=== PATIENT | male | born 1950 | race Caucasian/White ===

== ENCOUNTER 2016-07-23 12:00 | Observation (INO) | payer MEDICARE, OTHER ==
[~2016-07-23] VITALS: Ht 175.3 cm; Wt 138.2 kg
--- NOTE | ~2016-07-23 | ER ---
PATIENT'S NAME: IZAIAH MUÑOZ [facility] AGE: 66 Y [address] ROOM: [id number] [place], [place] [address] LOCATION: [facility] [place] ADMIT DATE: 07/23/2016 ER/Outpatient Report DISCHARGE DATE: FAMILY PHYSICIAN: PHYSICIAN, UNKNOWN ATTENDING PHYSICIAN: BRITTANI NOVOA Time of Patient Arrival: 1200 hours. Time of Patient Evaluation: 1210 hours. CHIEF COMPLAINT: Redness around a fistula site. HISTORY OF PRESENT ILLNESS: This is a 66-year-old male who presents to the ER, who is an end-stage renal disease patient who does dialysis here in town on Monday, , and Saturdays. The patient states he went to take off his jacket at dialysis today and noticed some redness over his fistula site. Dr. Crews did take a look at the patient and did state that he does not want his fistula site to be accessed and wanted him to come over to the hospital to get a new access placed, so that he can receive dialysis today. He has not been running any fevers. He denies any vomiting or diarrhea. He states he has no pain to the arm. The patient states that he has no other problems at this time. ALLERGIES: NO KNOWN ALLERGIES. MEDICATIONS: Please see medication list in nurse's notes. PAST MEDICAL HISTORY: 1. Recent right arm fracture due to fall 3 weeks ago. 2. End-stage renal disease, is on dialysis. 3. Anemia of chronic kidney disease. 4. Hypertension. 5. Diabetes. 6. Obstructive sleep apnea. 7. Morbid obesity. 8. Hypothyroidism. 9. Acid reflux. 10. Chronic constipation. 11. Factor V Leiden deficiency. SOCIAL HISTORY: Denies smoking, drug, or alcohol use. PATIENT'S NAME: IZAIAH MUÑOZ [facility] AGE: 66 Y [address] ROOM: [address] [place], [place] [address] LOCATION: [facility] [place] ADMIT DATE: 07/23/2016 ER/Outpatient Report DISCHARGE DATE: FAMILY PHYSICIAN: PHYSICIAN, UNKNOWN ATTENDING PHYSICIAN: BRITTANI NOVOA REVIEW OF SYSTEMS: A 10-point review of systems was completed and was negative with the exception of those discussed in the HPI. PHYSICAL EXAMINATION: VITAL SIGNS: Weight 143 kg, blood pressure is 130/61, pulse 56, respirations 18, temperature 98.2 degrees tympanically, saturations 93% on room air. Dilshad Coma Score is 15. GENERAL: Alert, calm, obese male, in no acute distress. HEENT. Head: Normocephalic. He does display moist mucous membranes. Eyes: Pupils are equal and reactive to light. LUNGS: Clear to auscultation bilaterally. No wheeze or crackles. Normal respiratory effort. HEART: Regular rate and rhythm. No lifts, thrills, or murmurs. ABDOMEN: Soft, is obese, it is nontender. He has good bowel sounds throughout. EXTREMITIES: No clubbing or cyanosis. He has full range of motion of all limbs. SKIN: He has a dime-sized to nickel-sized erythema noted over the left fistula site. It is slightly swollen, there could possibly be appearance of an early pustule there. He has a red streak measuring approximately an inch to an inch and half in length over the forearm as well. There is no induration. There is no tenderness with palpation. LABORATORY DATA: CBC: White count 7.2, hemoglobin 9.1, and platelets 263. Chemistry: Sodium 135, potassium 4.4, glucose 112, calcium 8.0, BUN 43, and creatinine 6.5. Alkaline phosphatase 169, and estimated GFR is 9. Clot PTT was also drawn. IMPRESSION: 1. Possible infection to fistula, left forearm. 2. End-stage renal disease. ASSESSMENT AND PLAN: I discussed the patient's care with Dr. Malik. We did draw 2 sets of blood cultures as well. Dr. Crews also called about the patient and I admitted the patient to the Hospitalist Service since his primary care physician is in [place], so Dr. Novoa will admit. Dr. Geller will also consult on the patient's care. The patient understands and agrees with care. NOA NORMAN PA-C FOR GENA MALIK MD PATIENT'S NAME: IZAIAH MUÑOZ [facility] AGE: 66 Y [address] ROOM: [place] [address] LOCATION: [facility] [place] ADMIT DATE: 07/23/2016 ER/Outpatient Report DISCHARGE DATE: FAMILY PHYSICIAN: PHYSICIAN, UNKNOWN ATTENDING PHYSICIAN: BRITTANI NOVOA /[id number] d: 07/23/168 t: 08/01/16 173, OUTPATIENT REPORT
--- NOTE | ~2016-07-23 | CON ---
PATIENT'S NAME: IZAIAH MUÑOZ [facility] AGE: 66 Y [address] ROOM: [place] [address] LOCATION: [facility] [place] ADMIT DATE: 07/23/2016 Consultation DISCHARGE DATE: 07/26/2016 FAMILY PHYSICIAN: PHYSICIAN, UNKNOWN ATTENDING PHYSICIAN: BRITTANI OSEI DATE OF CONSULTATION: 07/25/2016 REASON FOR CONSULT: Cellulitis and abscess over left arteriovenous fistula. HISTORY OF PRESENTING ILLNESS: This is a 66-year-old male, admitted to [facility] for cellulitis and abscess collection over his left arm fistula. The patient noticed redness, swelling, and pus around his fistula access site after a difficult stick on during dialysis. The patient had an increase in pustule size from to Monday morning. At the Monday morning dialysis session, he was assessed by other staff and deferred to the emergency room after this pustule was seen. The patient denies any current signs of sepsis systemically such as fever or chills. The patient was admitted for potential rupture or bleed, also admitted for IV antibiotics and placement of temporary dialysis catheter. The patient denies any chest pain, shortness of breath, abdominal pain, nausea, vomiting, or diarrhea. He denies any headache or dizziness. PAST MEDICAL HISTORY: 1. Hypertension. 2. 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 3. Obstructive sleep apnea. 4. Morbid obesity. 5. Hypothyroidism. 6. GERD. 7. Chronic constipation. 8. Factor V Leiden mutation, not on anticoagulation. 9. Arthritis. 10. Hypercholesterolemia. PAST SURGICAL HISTORY: 1. Left arm radiocephalic fistula. 2. Hernia repair. 3. Right nasal endoscopy with excision of right nasal lesion. 4. Peritoneal dialysis catheter placed and removed. 5. Bilateral carpal tunnel release. 6. Bilateral knee arthroscopy. PATIENT'S NAME: IZAIAH MUÑOZ [facility] AGE: 66 Y [address] ROOM: [place] [address] LOCATION: [facility] [place] ADMIT DATE: 07/23/2016 Consultation DISCHARGE DATE: 07/26/2016 FAMILY PHYSICIAN: PHYSICIAN, UNKNOWN ATTENDING PHYSICIAN: BRITTANI OSEI 7. Tonsillectomy. 8. Stab phlebectomy bilaterally. FAMILY HISTORY: Father with coronary artery disease and hypertension. Mother, brother, and sister with diabetes mellitus. 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 He denies any history of smoking, alcohol, or illicit drug use. CURRENT MEDICATIONS: See medication record. ALLERGIES: NO KNOWN ALLERGIES. REVIEW OF SYSTEMS: A 10-point review of systems completed, positives addressed in the history of presenting illness. PHYSICAL EXAMINATION: VITAL SIGNS: Temperature 97.5, heart rate 71, respiratory rate 16, blood pressure 133/63, and oxygen saturations 92%. GENERAL: The patient is obese, in no acute distress, alert and oriented x3. SKIN: Warm and pink. HEENT: Head: Normocephalic and atraumatic. Ears: Without drainage. Eyes: Sclerae white. Conjunctivae pink. Extraocular movements intact. PERRLA. Nose: Without drainage. Throat: Oral mucosa pink and moist. No exudate or erythema. NECK: Without adenopathy. No evidence of JVD. Trachea midline. There is a temporary dialysis catheter in place. RESPIRATORY: Clear to auscultation bilaterally. Even and nonlabored. CARDIOVASCULAR: Regular rate and rhythm. No murmur or extra sounds. GASTROINTESTINAL: Bowel sounds active x4. Soft. Nontender. No organomegaly. EXTREMITIES: Left arm radiocephalic fistula with bruit and thrill. Now dried bloody drainage and pink wound bed where pustule was located. Wound appears superficial with no purulent drainage. No surrounding erythema or edema at this time. No communication of vein with lesion on palpation. Femoral, radial, dorsalis pedis, and posterior tibialis pulses 2+. No cyanosis. No edema. Active range of motion throughout. No ulcerations. Extremities warm to touch. NEUROLOGIC: No focal deficits. Strength equal bilaterally 5/5. PATIENT'S NAME: IZAIAH MUÑOZ [facility] AGE: 66 Y [address] ROOM: [id number] [place] [id number] LOCATION: [facility] [place] ADMIT DATE: 07/23/2016 Consultation DISCHARGE DATE: 07/26/2016 FAMILY PHYSICIAN: PHYSICIAN, UNKNOWN ATTENDING PHYSICIAN: BRITTANI OSEI LABORATORY DATA: Hematology: White blood cell count 5.8, hemoglobin 9.3, hematocrit 30.6, and platelets 184. Chemistry: Sodium 134, potassium 4.1, chloride 98, CO2 of 23, BUN 40, creatinine 6.3, and glucose 94. IMPRESSION: 1. End-stage renal disease, on hemodialysis. 2. Diabetes mellitus type 2. 3. Anemia of chronic disease. 4. Cellulitis of left upper extremity with abscess. PLAN: Cutaneous infection appears superficial without communication with the fistula. Appears to have improved in appearance in comparison to description on history and physical since IV antibiotic initiation. No surgical intervention needed at this time. Dr. Singh recommends resting the fistula for 3 weeks and obtaining a tunneled line for hemodialysis until fistula is fully healed. Continue the patient with antibiotics for 1 week. The patient is currently on IV doxycycline and maybe transition to p.o. prior to discharge. The patient is to follow up with Dr. Singh in clinic in 3 weeks to determine if the fistula may be used for dialysis again at that time. Continue to monitor for any increase in drainage or bleeding. Please contact Vascular Surgery with any further concerns or complications. Thank you for your consultation and for allowing us to participate in the care of this patient. GINNY CORADO APRN FOR BENIGNO SINGH MD TO/gueral /[id number] d: 07/26/16 1805 t: 07/29/16 1010, CONSULTATION REPORT
--- NOTE | ~2016-07-23 | HP ---
PATIENT'S NAME: IZAIAH MUÑOZ [facility] AGE: 66 Y [address] ROOM: [place] [address] [place] [facility] [place] [facility] [place] DATE: 07/23/2016 History & Physical DISCHARGE DATE: FAMILY PHYSICIAN: PHYSICIAN, UNKNOWN ATTENDING PHYSICIAN: BRITTANI OSEI DATE OF SERVICE: CHIEF COMPLAINT: Left upper extremity cellulitis with abscess, loss of hemodialysis access site. HISTORY OF PRESENT ILLNESS: This is a 66-year-old male, history of hypertension, diabetes, end-stage renal disease, on hemodialysis on Monday, , and Monday, who presents with cellulitis and abscess collection over his left fistula site that is used for dialysis. The patient states that he started noticing the redness, swelling with central pus collection around his fistula access site on the left arm, used for dialysis. The patient first noticed symptom yesterday evening, which progressed then. The patient has had successful hemodialysis last without issues. 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 The patient upon my evaluation states that he has minimal pain in the area but denies any systemic signs of infection including fever or chills. Denies any chest pain, shortness of breath, nausea, vomiting, diarrhea, or constipation. No headache, dizziness, or lightheadedness reported as well. The patient is not known to have recurrent soft tissue infections. He is a diabetic; however, diabetes is very well controlled. PAST MEDICAL HISTORY: Type 2 diabetes, hypertension, end-stage renal disease, on hemodialysis. FAMILY HISTORY: The patient has a family history of hypertension in the parents. SOCIAL HISTORY: The patient denies smoking, daily alcohol use, or drug use. REVIEW OF SYSTEMS: A 10-point review of systems was conducted and were all negative except as described in the HPI. PHYSICAL EXAMINATION: VITAL SIGNS: Blood pressure 138/61, pulse 51, respiratory rate 16, PATIENT'S NAME: IZAIAH MUÑOZ [facility] AGE: 66 Y [address] ROOM: [place] [address] [place] [facility] [place]: 07/23/2016 History & Physical DISCHARGE DATE: FAMILY PHYSICIAN: PHYSICIAN, UNKNOWN ATTENDING PHYSICIAN: BRITTANI OSEI temperature 98, saturating 100% on room air. ASSESSMENT AND PLAN: 1. Cellulitis of left upper extremity with abscess. This is the site of dialysis access with AV fistula. We will treat cellulitis with IV doxycycline and then switch to p.o. upon discharge to finish a minimum of 7-day course. The patient is not to use the fistula until infection at the site, erythema and swelling have subsided. Does not appear to be there is enough collection to require incision and drainage, and attempting that would complicate the access area as well. Nephrology, Dr. Crews, is following closely. 2. Failure of hemodialysis access site. The patient is to get temporary vascular access and Dr. Geller is to do that today so that he can have his scheduled dialysis, at his next visit. We will watch out for any signs of leak or bleed from the fistula site closely. 3. Type 2 diabetes, well controlled. The patient is on oral hypoglycemics at home. We will use sliding scale insulin while he is inpatient. 4. End-stage renal disease, on hemodialysis, to get temporary vascular access. I will schedule Monday, , and Monday. Dr. Crews from Nephrology is following. 5. Deep venous thrombosis prophylaxis. We will use subcutaneous heparin. BRITTANI OSEI MD BG/modl /[id number] D: [id number] T: [id number] HISTORY & PHYSICAL
--- NOTE | ~2016-07-23 | CON ---
PATIENT'S NAME: IZAIAH MUÑOZ [facility] AGE: 66 Y [address] ROOM: [address] [place], [place] [address] [place]: [facility] [place] ADMIT DATE: 07/23/2016 Consultation DISCHARGE DATE: FAMILY PHYSICIAN: PHYSICIAN, UNKNOWN ATTENDING PHYSICIAN: BRITTANI OSEI DATE OF CONSULTATION: 07/23/2016 CONSULTATION NOTE REASON FOR CONSULTATION: End-stage renal disease for management of dialysis. HISTORY OF PRESENT ILLNESS: A 66-year-old male patient with history of ESRD from diabetic nephropathy, currently undergoes dialysis in our outpatient dialysis unit at [facility] as per TTS schedule, developed a pustule over his the left forearm AV fistula. The patient was subsequently admitted to the hospital for further management and care, and Nephrology has been consulted for management of dialysis. He was in his usual state of health until , when he had a difficult stick at that time when he went for his dialysis therapy. After that when he removed his bandage over his fistula after his dialysis, he saw a small pus point overlying the fistula at the needle insertion site which slowly went bigger and in the morning, it shows significant pus accumulation around that area. However, there is no drainage at this point. No complaint of any blood leak or any significant bleeding from that area. He went to our dialysis unit today in the morning as per his TTS schedule, but seeing this pustule we deferred the dialysis for now and send the patient to the ER. The patient got initially evaluated here, does not have any systemic signs of sepsis, but has a pustule over the AVF which has a very high potential to bleed and rupture. Considering that in mind, the patient has been admitted in the [facility] for IV antibiotics along with plan for placement of a temporary dialysis catheter. The patient is currently at least 7 L off from his dry weight, but denied any shortness of breath, chest pain, or orthopnea, or PND. REVIEW OF SYSTEMS: GENERAL: No fever. No chills or rigor. HEENT: No sore throat. No sinus congestion. CVS: No chest pain. No exertional shortness of breath. No leg swelling. RESPIRATORY: No shortness of breath. No cough. No wheezing. GENITOURINARY: No pain with urination. No increased frequency. No nocturia. GASTROINTESTINAL: No abdominal pain. No abdominal distention. No nausea or vomiting. NEUROLOGIC: No weakness. No seizures. SKIN: No rash. No itching. ALLERGIES: No seasonal allergy. No hayfever. ENDOCRINE: No heat intolerance. No cold intolerance. PSYCHIATRIC: No sadness. No crying spells. No history of panic attack. PATIENT'S NAME: IZAIAH MUÑOZ [facility] AGE: 66 Y [address] ROOM: [place] [address] LOCATION: [facility] [place] ADMIT DATE: 07/23/2016 Consultation DISCHARGE DATE: FAMILY PHYSICIAN: PHYSICIAN, UNKNOWN ATTENDING PHYSICIAN: BRITTANI OSEI PAST MEDICAL HISTORY: 1. Hypertension. 2. Diabetes. 3. End-stage renal disease secondary to diabetic nephropathy, now on in- center hemodialysis, TTS schedule. 4. Obstructive sleep apnea. 5. Morbid obesity. 6. Hypothyroidism. 7. GERD. 8. Chronic constipation. 9. Factor V Leiden mutation, not on anticoagulation. PAST SURGICAL HISTORY: 1. Left fistula placement. 2. Hernia repair. 3. Right nasal endoscopy with excision of right nasal lesion. 4. Left forearm primary radiocephalic AV fistula placement. 5. Peritoneal dialysis catheter placement and removal. 6. Bilateral carpal tunnel release. 7. Knee arthroscopy. ALLERGIES: NO KNOWN DRUG ALLERGIES. MEDICATIONS: As per MAR. SOCIAL HISTORY: Lives at home. 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 No history of significant smoking or alcohol abuse in the past. FAMILY HISTORY: History of hypertension and diabetes, but no history of kidney disease in the family. PHYSICAL EXAMINATION: VITAL SIGNS: Blood pressure 150/68, respiratory rate 22, heart rate 76, and saturation 96 to 98% on room air. Currently afebrile. GENERAL: Not in apparent distress. HEAD: Moist mucous membranes. Bilateral PERRLA, EOMI. NECK: No JVD, thyromegaly or lymphadenopathy. CVS: S1 and S2 normal, regular rate and rhythm. No murmur, rub, gallop. CHEST: Bilateral air entry equal. No wheeze or rales. ABDOMEN: Soft, nontender, nondistended. Bowel sounds present. EXTREMITIES: Left forearm AV fistula, has a small pustule over the needle insertion site over left AVF. No cyanosis, clubbing, or jaundice. No significant dependent edema. MUSCULOSKELETAL: No limitation of range of motion. SKIN: No pallor, cyanosis, icterus. 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 No gross findings. PATIENT'S NAME: IZAIAH MUÑOZ [facility] AGE: 66 Y [address] ROOM: [address] [address] LOCATION: [facility] [place] ADMIT DATE: 07/23/2016 Consultation DISCHARGE DATE: FAMILY PHYSICIAN: PHYSICIAN, UNKNOWN ATTENDING PHYSICIAN: BRITTANI OSEI LABORATORY STUDIES: Hemoglobin 9.1, WBC 7.2, and platelets 263,000. Sodium 135, potassium 4.4, chloride 97, bicarbonate 25, BUN 43, creatinine 6.5, glucose 112, calcium 8, total protein 7.4, and albumin 2.6. INR 1.1. PTT 32. ASSESSMENT AND PLAN: 1. Pustules over the left forearm arteriovenous fistula, although no sign of sepsis, but has high potential of rupture. The patient will need IV antibiotic therapy. I spoke with Dr. Singh (vascular surgeon)personally. We will try to monitor over the weekend with IV antibiotics and plan to do imaging or procedure as per Dr. Singh's advise after he evaluates him on Monday. For now, we will not use the AVF and we will cover it with a sterile bandage. Patient has been instructed to watch for any sign of bleeding and if patient has any blood leak or any sign of impending rupture, the patient needs to be transferred out to some tertiary care center where there is Vascular Surgery coverage even over the weekend. 2. End-stage renal disease, on chronic hemodialysis, TTS schedule. The last dialysis was on Monday. The patient currently is almost several liters off from his dry weight, although not significantly short of breath. The patient's biochemical parameters are also within normal limits, but he may will not float until Monday or Monday until we get the access issue resolved; so we planned for a temporary dialysis catheter placement by Dr. Geller. Once that line is placed, we will dialyze him on a 2 K bath for 4 hours and we will plan to remove about 4 to 5 L of ultrafiltrate as per the hemodynamic response. 3. Anemia of chronic disease; does receive Mircera as an outpatient. Next dose of Mircera planned for next week. We will continue to monitor the hemoglobin and hematocrit. 4. Diabetes mellitus. Defer management as per primary team. 5. Secondary hyperparathyroidism and hyperphosphatemia. Currently on binders. We will continue the binders as per outpatient protocol. Thank you for allowing me to participate in this patient's care. We will closely monitor the patient's progress along with you. ABHISEKH HUGO CASTILLO MD /modl /[id number] d: 07/23/160 t: 07/24/16 1215, CONSULTATION REPORT
--- NOTE | ~2016-07-23 | OR ---
PATIENT'S NAME: IZAIAH MUÑOZ [facility] AGE: 66 Y [address] ROOM: [place] [address] [place] [facility] [place]: 07/23/2016 OR/Procedure Report DISCHARGE DATE: FAMILY PHYSICIAN: PHYSICIAN, UNKNOWN ATTENDING PHYSICIAN: BRITTANI OSEI SURGEON: Tay Houston DO PRECISION ASSEMBLY INSPECTOR: DATE OF PROCEDURE: 07/23/2016 PREOPERATIVE DIAGNOSIS: Acute renal failure with fistula compromise, need for temporary hemodialysis access. POSTOPERATIVE DIAGNOSIS: Acute renal failure with fistula compromise, need for temporary hemodialysis access. PROCEDURE: Insertion of left internal jugular vein temporary dialysis catheter. BRIEF HISTORY: Mr. Muñoz is a 66-year-old white male who has had some difficulties with his fistula and possible fistula infection. We have been asked to place a dialysis line in for temporary access. The right internal jugular vein has been accessed multiple times with previous dialysis catheter site, I could not visualize a clean vein on ultrasound. I attempted the right subclavian area, the vein was accessed, however, the guidewire would not feed without resistance. So, we turned our attention to the left internal jugular vein. We identified a nice vein and sterilely prepped and draped the area. 1% lidocaine was used to infiltrate deeper tissues and the vein was accessed without difficulty. The guidewire fed without resistance. A stab incision was made at the base of the needle and the needle was withdrawn. Soft tissue dilators were placed over the guidewire and withdrawn and then the triple- lumen temporary dialysis catheter was placed over the guidewire, and the guidewire was withdrawn. Each lumen aspirated easily for dark venous blood, was then flushed with sterile saline. The 2 dialysis lumens were then locked with heparin. It was secured in position with a 2-0 nylon. A sterile dressing was applied. The patient tolerated the procedure well. A chest x- ray is pending for placement. TAY HOUSTON DO MCB/modl PATIENT'S NAME: IZAIAH MUÑOZ [facility] AGE: 66 Y [address] ROOM: [place] [address] [place] [facility] [place]: 07/23/2016 OR/Procedure Report DISCHARGE DATE: FAMILY PHYSICIAN: , [place] ATTENDING PHYSICIAN: BRITTANI OSEI /[id number] d: 07/25/16 1909 t: 07/26/16 0823, OPERATIVE SUMMARY
--- NOTE | ~2016-07-23 | DS ---
PATIENT'S NAME: IZAIAH MUÑOZ [facility] AGE: 66 Y [address] ROOM: [address] [place], [place] [address] LOCATION: [facility] ADMIT DATE: 07/23/2016 Discharge Summary DISCHARGE DATE: 07/26/2016 FAMILY PHYSICIAN: Physician, Unknown ATTENDING PHYSICIAN: Shauna Novoa FINAL DIAGNOSES: 1. Left fistula cellulitis. 2. End-stage renal disease. 3. Obstructive sleep apnea, on CPAP. 4. Diabetes mellitus, type 2, noninsulin using. 5. Essential hypertension. HISTORY OF PRESENT ILLNESS: Please see the history and physical dictated by Dr. Novoa for details of admission. LABORATORY DATA: On admission, sodium 139, discharge 130, potassium on admission was 4.1, discharge 4.9, BUN on admission was 43, most prior to discharge 56, creatinine on admission was 6.5, most prior to discharge 7.8, alk phos was 169, AST 19, and ALT 14. On admission, white blood cell count 7.2, hemoglobin 9.1, hematocrit 30.5, platelet count 261, 10% bands, at discharge white blood cell count 5.5, hemoglobin 9.1, hematocrit 29.2, and platelet count 173. MICROBIOLOGY DATA: Blood culture was negative. Chest x-ray on admission after line placement did not show any evidence of any pneumothorax. HOSPITAL COURSE: The patient was admitted after presenting with a possible infection site of his left fistula. Because of his longstanding history and frequent contact in the medical community, it was concerned that he had MRSA. He was started on IV doxycycline. Nephrology did see him. A temporary dialysis catheter was placed by Dr. Geller for him to continue to receive his dialysis. The Vascular Surgeon was asked to evaluate this to see if he felt that the area would need to be debrided. He was continued on the IV antibiotics and he improved tremendously. The decision was made that we should probably not use the fistula for 2-3 weeks. Arrangements were made for the patient to get a tunneled dialysis catheter placed on July 26. The dialysis catheter was placed without any difficulty and the patient was felt to be stable for discharge and he is discharged to home. He is discharged on a diabetic diet. He will follow up with his dialysis on Monday, , and Monday. He will see Dr. Singh in clinic in 3 weeks. MEDICATIONS: His medications will include: 1. Allopurinol 100 mg twice daily. 2. Sensipar 30 mg in the evening. PATIENT'S NAME: IZAIAH MUÑOZ [facility] AGE: 66 Y [address] ROOM: [address] [place], [place] [address] LOCATION: [facility] ADMIT DATE: 07/23/2016 Discharge Summary DISCHARGE DATE: 07/26/2016 FAMILY PHYSICIAN: Physician, Unknown ATTENDING PHYSICIAN: Shauna Novoa 3. Tenormin 50 mg twice daily. 4. Lipitor 40 mg daily. 5. Calcitriol 1.5 mcg 3 pills taken with dialysis. 6. PhosLo 667 mg twice daily and 1334 three times daily with meals. 7. Sensipar 90 mg in the evening. 8. Neurontin 300 mg at bedtime. 9. Lopid 600 mg twice daily. 10. Synthroid a total of 350 mcg daily. 11. Melatonin 10 mg at bedtime. 12. Renvela 800 mg twice daily as needed. 13. Renvela 1300 mg 3 times daily with meals. 14. Zantac 75 mg twice daily. 15. Actos 30 mg daily. 16. Vitamin B 1 tablet daily. 17. [place] 10/325 one four times daily as needed for moderate pain. 18. MiraLAX 17 g daily. 19. Doxycycline 100 mg twice daily for 7 days. 20. Percocet 5/325 one every 4 hours as needed for mild pain related to his tunnel dialysis catheter and 20 pills were given. PROGNOSIS: Overall, prognosis at discharge was good. DANDY CAREY MD LAW/modl /[id number] CC: MD Gildardo Cavazos MD d: 07/27/16 0420 t: 08/10/16 1642, DISCHARGE SUMMARY
--- NOTE | ~2016-07-23 | HP ---
PATIENT'S NAME: IZAIAH MUÑOZ [facility] AGE: 66 Y [address] ROOM: [place] [address] LOCATION: [facility] [place] ADMIT DATE: 07/23/2016 History & Physical DISCHARGE DATE: FAMILY PHYSICIAN: PHYSICIAN, UNKNOWN ATTENDING PHYSICIAN: BRITTANI OSEI DATE OF SERVICE: ADDENDUM: PHYSICAL EXAMINATION: GENERAL: The patient is awake, alert, and oriented x3, in no acute distress. HEENT: Moist mucous membranes. No scleral icterus or conjunctival pallor noted. SKIN: Red, indurated, abscess measuring about 2 cm in diameter in the left upper extremity on the anterior aspect of his elbow over his AV fistula access site. HEART: S1 and S2. Regular rate and rhythm. LUNGS: Clear to auscultation bilaterally. ABDOMEN: Soft, nontender, nondistended. Positive bowel sounds. MUSCULOSKELETAL: No joint pain or tenderness noted. No muscular pain noted as well. NEUROLOGIC: Grossly nonfocal. MD HAILEE JEAN-BAPTISTE/yolanda /[id number] D: [id number] T: [id number] HISTORY & PHYSICAL
[~2016-07-23 12:00] MED LIST changes: -B COMPLEX1 EACH PO; -CORDARONE,PACE200 MG PO; -DOXYCYCLINE100 MG PO; -ELIQUIS2.5 MG PO; -HUMIBID LA (MU600 MG PO; -JANUVIA25 MG PO; -LANOXIN (DIGI125 MCG PO; -LEVAQUIN 250 M250 MG PO; -LEXAPRO20 MG PO; -LOPRESSOR25 MG PO; -MIDODRINE HCL5 MG PO; -MILK OF MA400 MG/5 M PO; -MIRALAX PO527 GM/BOT PO; -MYCOSTATIN OINT30 GM TOP; -NEURONTIN100 MG PO; -REMERON15 MG PO
[2016-07-23 13:03] LABS: INR - (THERAPEUTIC) 1.1 (0.9-1.1); PROTIME 12.1 SECONDS (9.6-11.1)
[2016-07-23 13:18] LABS: HEMATOCRIT 30.5 % (37.0-53.0); HEMOGLOBIN 9.1 g/dL (11.0-16.0); MCH 31.2 pg (27.0-34.0); MCHC 29.8 gm/dL (32.0-36.5); MCV 104.5 fl (83.0-98.0); MPV 9.3 fl (9.4-12.4); PLATELET COUNT 263 K/uL (150-450); RBC 2.92 M/uL (3.50-5.50); WBC 7.2 K/uL (4.0-11.0)
[2016-07-23 13:19] LABS: RDW-CV 18.8 % (11.9-14.6)
[2016-07-23 13:34] LABS: ALBUMIN 2.6 gm/dL (3.5-5.0); ANION GAP 17.4 (10.0-19.0); POTASSIUM 4.4 mMol/L (3.7-5.1); TOTAL PROTEIN 7.4 g/dL (6.0-8.4)
[2016-07-23 13:35] LABS: CREATININE 6.5 mg/dL (0.6-1.3); TOTAL BILIRUBIN 0.4 mg/dL (0.0-1.5)
[2016-07-23 13:54] LABS: ABSOLUTE NEUTROPHIL CT (ANC) 4.9 K/uL (1.4-9.0); BANDED NEUTROPHIL # 0.7 K/uL (0.0-0.1); BANDED NEUTROPHILS % 10 %; LYMPHOCYTE # 1.7 K/uL (0.8-4.0); LYMPHOCYTE % 23 %; MONOCYTE # 0.3 K/uL (0.0-1.0); SEGMENTED NEUTROPHIL # 4.2 K/uL (1.4-9.0); SEGMENTED NEUTROPHIL % 58 %
[2016-07-23] MEDS ORDERED: MIRALAX PO527 GM/BOT PO (16:30)
--- NOTE | 2016-07-23 18:37 | NUR ---
Admission note: Patient came up from the ER, after being at [facility]. He has an AV fistula in the left forearm with a small dime size red area to the top of incision. This did bleed a small amount, but none since the removal of the bandage. He has a history of Hypertension, Diabetes, Hypercholestrolemia, Sleep apnea (with use of CPAP), End-stage Renal failure with receiving dialysis and has a Right Shoulder Fracture-uses arm sling. Use nilay-walker and one-assist for ambulation. Refused pneumatics. Is up to date on immunizations. Has a open sore on right buttocks. Encouraged frequent repositioning. Dr Geller placed temporary dialysis cath in left neck. Pt then went to dialysis. Patient is alert and oriented. VSS. On room air. IV to right upper arm, saline locked. Cooperative with cares.
--- NOTE | 2016-07-24 05:11 | NUR ---
Significant Event: Patient was in dialysis until almost 2200. He ate 100% of his dinner meal. Accucheck was 120 with no S/S given. Rested quietly throughout the night until around 0330 when he awoke and requested a percocet for shoulder pain. Order received and then given at 0415. Has 2 open areas on his buttock, aloe applied. Follow up:Continue to monitor.
--- NOTE | 2016-07-24 16:12 | NUR ---
Significant event: Patient is alert and oriented x3. VSS. On room air. IV to right upper arm, saline locked. Temp dialysis cath in left neck. Fistula to left forearm, covered loosely with gauze and coban, no drainage noted. No complaints of pain. Up in chair. at bedside. BM today, dribble of urine with it. Uses nilay-walker and stand by assist. Needs encouragement for repositioning.
--- NOTE | 2016-07-25 05:45 | NUR ---
Significant Event: Significant Event: Uneventful night, Perocoet given about every 4 hours for right shoulder pain. Up and voided a small amount during the night. 1-2 assist at times. Pleasant and cooperative with cares. Alert and orientated. Dr Singh to see today to check on fistula to see if he thinks it will be ok to use. Follow up: Continue to monitor
[2016-07-25 05:48] LABS: HEMATOCRIT 30.6 % (37.0-53.0); HEMOGLOBIN 9.3 g/dL (11.0-16.0); MCH 31.5 pg (27.0-34.0); MCHC 30.4 gm/dL (32.0-36.5); MCV 103.7 fl (83.0-98.0); MPV 9.2 fl (9.4-12.4); RBC 2.95 M/uL (3.50-5.50); RDW-CV 19.1 % (11.9-14.6); WBC 5.8 K/uL (4.0-11.0)
[2016-07-25 05:55] LABS: PLATELET COUNT 184 K/uL (150-450)
[2016-07-25 06:06] LABS: ALBUMIN 2.5 gm/dL (3.5-5.0); ANION GAP 17.1 (10.0-19.0); CALCIUM 8.4 mg/dL (8.5-10.5); PHOSPHORUS 7.3 mg/dL (2.5-4.9); POTASSIUM 4.1 mMol/L (3.7-5.1)
[2016-07-25 06:13] LABS: CREATININE 6.3 mg/dL (0.6-1.3)
[2016-07-25 07:06] LABS: ABSOLUTE NEUTROPHIL CT (ANC) 3.5 K/uL (1.4-9.0); BANDED NEUTROPHIL # 0.2 K/uL (0.0-0.1); BANDED NEUTROPHILS % 4 %; LYMPHOCYTE # 1.6 K/uL (0.8-4.0); LYMPHOCYTE % 27 %; MONOCYTE # 0.7 K/uL (0.0-1.0); SEGMENTED NEUTROPHIL # 3.3 K/uL (1.4-9.0); SEGMENTED NEUTROPHIL % 56 %
--- NOTE | 2016-07-25 15:00 | NUR ---
SPOKE TO PATIENT'S SPOUSE AT THE BEDSIDE. PATIENT IS SLEEPING. INTRODUCED CM AND OUR ROLE. PATIENT LIVES IN OWN HOME WITH SPOUSE, HIS SPOUSE ANTICIPATES THAT ANN WILL DISCHARGE TOMORROW. SHE DOES NOT ANTICPATE THAT PATIENT WILL HAVE ANY DISCHARGE NEEDS. CM WILL CONT TO FOLLOW NEEDED.
--- NOTE | 2016-07-25 16:38 | NUR ---
Significant Event: Patient is alert and oriented x3. VSS and on RA. Diabetic diet. Accuchecks AC/HS. Will have a tunneled temp. dialysis catheter placed tomorrow after he has dialysis. He temporarily has a line in his neck. Fistula to the L)arm, not in use at this time. IV to the right upper arm. IV ABX. Has taken percocet once early this am for right sholuder pain. He has a fracture. Turn every 2 hours and off his bottom. He has a couple of open sores on his buttocks and ulceration in the crease. Appyling aloe vista QID to buttocks and BID to bilateral lower extremeties. Bag bath completed by [facility] NURSING DIRECTOR.
--- NOTE | 2016-07-26 02:58 | NUR ---
SIGNIFICANT EVENT: Patient alert & oriented. VSS on RA. No Mild SS coverage for HS BG of 133 - AC/HS accuchecks. Will have dialysis in a.m. of 07/26/16 and tunnelled dialysis cath placement after - around 1000. NPO at 0400. Fractured R) shoulder - PRN percocet given x1. PIV to upper R) arm is SL other than intermittent antibiotics. Fistula to L) arm so BP's taken in R) forearm. Aloe vesta to open/reddened areas on bottom. at bedside - helpful with cares. Pleasant and cooperative with cares.
[2016-07-26 09:08] LABS: ALBUMIN 2.6 gm/dL (3.5-5.0); ANION GAP 17.9 (10.0-19.0); CALCIUM 7.8 mg/dL (8.5-10.5); POTASSIUM 4.9 mMol/L (3.7-5.1)
[2016-07-26 09:11] LABS: CREATININE 7.8 mg/dL (0.6-1.3)
[2016-07-26 09:13] LABS: HEMATOCRIT 29.9 % (37.0-53.0); HEMOGLOBIN 9.1 g/dL (11.0-16.0); MCH 31.2 pg (27.0-34.0); MCHC 30.4 gm/dL (32.0-36.5); MCV 102.4 fl (83.0-98.0); MPV 9.6 fl (9.4-12.4); RBC 2.92 M/uL (3.50-5.50); RDW-CV 19.1 % (11.9-14.6); WBC 5.5 K/uL (4.0-11.0)
[2016-07-26 09:18] LABS: INR - (THERAPEUTIC) 1.2 (0.9-1.1); PROTIME 12.4 SECONDS (9.6-11.1)
--- NOTE | 2016-07-26 17:18 | NUR ---
PT WAS NPO THIS MORNING AND LEFT FOR DIALYSIS AT 0700. FROM THERE HE WENT TO SURGERY FOR A DIALYSIS CATH PLACEMENT. RETURNED TO ROOM AT 1515. A/O AND COOPERATIVE. HEPARIN HELD UNTIL TOMORROW. ATE DINNER AT 1600. DIALYSIS CATH PLACEMENT LEFT UPPER CHEST. UP TO COMMODE FOR BM. STANDS AND MOVED SLOWLY BUT WITH STANDBY ASSIST/WALKER/GAIT BELT. HAS BLACK LIQUID STOOLS. AC HS BLOOD SUGARS. FISTULA TO LEFT ARM ABCESSED WITH CELLULITIS. HX FRACTURE RIGHT SHOULDER/FELL AT HOME.
[2016-07-26] MEDS ORDERED: DOXYCYCLINE100 MG PO (21:25)
[2016-07-26] MEDS ORDERED: PERCOCET 5-3251 EACH PO (21:27)
--- NOTE | 2016-07-27 00:41 | NUR ---
Significant Event: Patient was discharged to home with at 2230. All evening meds were give prior to leaving. Home Medication list and discharge instruction were verbally explained to patient he voiced understanding. Instructions on visual signs and symptoms of infection to new dialysis port were explained to patient and his both verbalized what would prompt a provider contact. Patient left the floor via 1 staff and wheelchair. Follow up: Card to contact cardiac clinic given to patient.
== END 2016-07-26 22:36 | disposition disaster alternative care site (69) ==
LOC: GMED 12:00 → GMSU 13:09
PROVIDERS: Internal Medicine Nephrology; Physician Assistant Medical; Radiology Diagnostic Radiology; ADMIT Internal Medicine
PROC: 0JH60XZ Insertion of Tunneled Vascular Access Device into Chest Subcutaneous Tissue and Fascia, Open Approach (ICD-10-PCS; principal; 2016-07-23)
DX: E11.21 Type 2 diabetes mellitus with diabetic nephropathy (principal); I12.0 Hypertensive chronic kidney disease with stage 5 chronic kidney disease or end stage renal disease; N18.6 End stage renal disease; I82.409 Acute embolism and thrombosis of unspecified deep veins of unspecified lower extremity; G47.33 Obstructive sleep apnea (adult) (pediatric); D63.1 Anemia in chronic kidney disease; D53.9 Nutritional anemia, unspecified; E03.9 Hypothyroidism, unspecified; K21.9 Gastro-esophageal reflux disease without esophagitis; E66.01 Morbid (severe) obesity due to excess calories; Z99.2 Dependence on renal dialysis; Z98.890 Other specified postprocedural states; Z79.2 Long term (current) use of antibiotics; Z79.899 Other long term (current) drug therapy
CPT/HCPCS: C1713; C1750; G0378; J1644; J1756; J7050; J7060

== ENCOUNTER → 2016-07-23 | Outpatient (CLI) | payer MEDICARE, OTHER ==
[~2016-07-23] MED LIST: ACTOS30 MG PO; B COMPLEX1 EACH PO; BACTROBAN N1 GM/TUBE NOSE; CALCITRIOL0.5 MCG PO; CLARITIN10 M2 PO; COLACE100 MG PO; CORDARONE,PACE200 MG PO; CPAP INH; DOXYCYCLINE100 MG PO; ELIQUIS2.5 MG PO; FOLIC ACID1 MG PO; HUMIBID LA (MU600 MG PO; HYDROCODON-ACE1 EAC6 PO; IRON18 MG PO; JANUVIA25 MG PO; LANOXIN (DIGI125 MCG PO; LEVAQUIN 250 M250 MG PO; LEVAQUIN500 MG PO; LEVEMIR100 UNIT/1 SUB-Q; LEVOTHROID (S150 MCG PO; LEVOTHROID (S200 MCG PO; LEVOTHROID(SY175 MCG PO; LEXAPRO20 MG PO; LIDODERM1 EACH TRANS; LIPITOR40 MG PO; LOPID600 MG PO; LOPRESSOR25 MG PO; MELATONIN10 MG PO; MIDODRINE HCL5 MG PO; MILK OF MA400 MG/5 M PO; MIRALAX PO527 GM/BOT PO; MIRALAX17 GM PO; MYCOSTATIN OINT30 GM TOP; NEURONTIN100 MG PO; NEURONTIN300 MG PO; NORCO 10-325 T1 EACH PO; NORCO 5-325 MG1 TAB PO; OCEAN NASAL) (A44 ML NOSE; PERCOCET 5-3251 EACH PO; PHOSLO667 MG PO; REMERON15 MG PO; RENA-VITE RX T1 EACH PO; RENVELA800 MG PO; SENSIPAR 30 MG30 MG PO; SENSIPAR90 MG PO; STOOL SOFTENER100 M1 PO; TENORMIN50 MG PO; VITAMIN B-121000 MCG PO; VITAMIN C500 M1 PO; VITAMIN D250000 UNIT PO; ZANTAC150 MG PO; ZYLOPRIM100 MG PO
== END | disposition disaster alternative care site (69) ==
LOC: GAMB 11:43
DX: T82.898A Other specified complication of vascular prosthetic devices, implants and grafts, initial encounter (principal); B99.9 Unspecified infectious disease; L53.9 Erythematous condition, unspecified; Z79.4 Long term (current) use of insulin; Z79.891 Long term (current) use of opiate analgesic; Z79.899 Other long term (current) drug therapy
CPT/HCPCS: A0425; A0429

== ENCOUNTER 2016-07-29 08:06 | Emergency (ER) | payer MEDICARE, OTHER ==
--- NOTE | ~2016-07-29 | ER ---
PATIENT'S NAME: IZAIAH MUÑOZ [facility] AGE: 66 Y [address] ROOM: [place] [address] LOCATION: ED ADMIT DATE: 07/29/2016 ER/Outpatient Report DISCHARGE DATE: 07/29/2016 FAMILY PHYSICIAN: Gildardo Holman MD ATTENDING PHYSICIAN: Victor Manuel Malik CHIEF COMPLAINT: Bleeding around a tunneled catheter site. HISTORY OF PRESENT ILLNESS: The patient states that he is on dialysis routinely. He had a tunneled catheter placed a few days ago by Dr. Geller because he was having some issues with his fistula and there was concern for possible infection. He had been doing well until last night. He noted some scant bleeding around his catheter and then this morning his dressing was soaked. He is without any other complaints at this time. He denies any other concerns. PAST MEDICAL HISTORY: Documented on the record and reviewed by me. SOCIAL HISTORY: Documented on the record and reviewed by me. MEDICATIONS: Documented on the record and reviewed by me. ALLERGIES: DOCUMENTED ON THE RECORD AND REVIEWED BY ME. REVIEW OF SYSTEMS: All systems reviewed and negative except as noted in the HPI. PHYSICAL EXAMINATION: VITAL SIGNS: Blood pressure 110/55, pulse 63, respiratory rate is 18, temp 97, SpO2 is 97% on room air. Pain 0/10. GENERAL: Age-appropriate male. No obvious pain or distress. NEUROLOGIC: Awake and alert. GCS 15. No focal deficits or asymmetry. HEENT: Normocephalic and atraumatic. Eyes are PERRL. Oropharynx is clear. NECK: Supple. Trachea is midline. CHEST: Heart is regular rate and rhythm. No murmurs. LUNGS: Clear to auscultation bilaterally with no rhonchi, wheezes, or rales. Chest wall is notable for a tunneled dialysis catheter in the left upper areas. No surrounding erythema. Some bloody discharge around the bandage. ABDOMEN: Soft, nontender, and nondistended. No focal masses. BACK: Nontender to palpation throughout. PATIENT'S NAME: IZAIAH MUÑOZ [facility] AGE: 66 Y [address] ROOM: [place] [address] LOCATION: ED ADMIT DATE: 07/29/2016 ER/Outpatient Report DISCHARGE DATE: 07/29/2016 FAMILY PHYSICIAN: Gildardo Holman MD ATTENDING PHYSICIAN: Victor Manuel Malik EXTREMITIES: Grossly normal with a bandage over the left forearm. SKIN: Grossly intact. LABORATORY AND X-RAYS: None. IMPRESSION: Bleeding at the insertion site of tunneled dialysis catheter. EMERGENCY DEPARTMENT COURSE: The patient was evaluated as above. I contacted Dr. Geller, physician who placed the catheter. He is amenable to me intervening. I removed the bandage and found no active bleeding, but significant skin defect consistent with the skin incision site. I prepared the area thoroughly with 2 swabs with chlorhexidine, allowed it to dry. I sterilely draped the area. I used sterile technique to place 2 simple interrupted stitches, one in the skin next to the catheter and one circumferentially around the catheter being careful not to puncture the catheter. I then had the dialysis nurse dress the catheter appropriately. The patient did tolerate the procedure well and 1 mL of lidocaine with epinephrine was used to anesthetize the site. The patient was otherwise discharged home in good condition. VICTOR MANUEL MALIK MD [facility]/modl /[id number] d: 07/29/16 1418 t: 08/01/16 1732, OUTPATIENT REPORT
[~2016-07-29 08:06] MED LIST changes: +DOXYCYCLINE100 MG PO; +MIRALAX PO527 GM/BOT PO
== END 2016-07-29 09:06 | disposition disaster alternative care site (69) ==
LOC: GMED 08:06
PROC: 0HQEXZZ Repair Left Lower Arm Skin, External Approach (ICD-10-PCS; principal; 2016-07-29)
DX: T82.838A Hemorrhage due to vascular prosthetic devices, implants and grafts, initial encounter (principal)

== ENCOUNTER → 2016-08-29 | Outpatient (CLI) | payer MEDICARE, OTHER ==
[~2016-08-29] MED LIST changes: +B COMPLEX1 EACH PO; +CORDARONE,PACE200 MG PO; +ELIQUIS2.5 MG PO; +HUMIBID LA (MU600 MG PO; +JANUVIA25 MG PO; +LANOXIN (DIGI125 MCG PO; +LEVAQUIN 250 M250 MG PO; +LEXAPRO20 MG PO; +LOPRESSOR25 MG PO; +MIDODRINE HCL5 MG PO; +MILK OF MA400 MG/5 M PO; +MYCOSTATIN OINT30 GM TOP; +NEURONTIN100 MG PO; +REMERON15 MG PO
== END | disposition disaster alternative care site (69) ==
LOC: GRAD 09:00
DX: Z49.01 Encounter for fitting and adjustment of extracorporeal dialysis catheter (principal)

== ENCOUNTER 2016-09-13 11:46 | Inpatient (IN) | payer MEDICARE, OTHER ==
[~2016-09-13] VITALS: Ht 175.3 cm; Wt 135.4 kg
--- NOTE | ~2016-09-13 | PUL ---
PATIENT'S NAME: IZAIAH MUÑOZ [facility] AGE: 66 Y [address] ROOM: [place] [address] LOCATION: GPCU ADMIT DATE: 09/13/2016 Pulmonary DISCHARGE DATE: 09/19/2016 FAMILY PHYSICIAN: Gildardo Holman MD ATTENDING PHYSICIAN: Julieth SILVA NAME OF PROCEDURE: Overnight Pulse Oximetry DATE OF PROCEDURE: September 17 to September 18, 2016 REASON FOR EXAM: Nocturnal hypoxemia RESULTS: The test was started on room air, but supplemental oxygen at 1 liter/minute was added approximately 3 hours and a half into the study. Subsequently, the oxygen was increased to 2 liters/minute. The recording time was 8 hours, 1 minute and 36 seconds, with a total valid sampling time of 7 hours 47 minutes and 16 seconds. The highest pulse was 73, lowest pulse was 48, with a mean pulse of 60. The highest SpO2 was 100%, lowest SpO2 was 63%, with a mean SpO2 of 86.1%. The patient spent 5 hours, and 50 minutes with SpO2 less than 89%, representing 74.9% of the total sleep time. The desaturation event index was elevated at 22.3. PHYSICIAN INTERPRETATION: The patient has evidence of significant nocturnal hypoxia and would qualify for supplemental oxygen as per Medicare criteria. However because of the severity of his nocturnal hypoxia with an elevated desaturation event index a sleep study is recommended at this time. MD SHIRA CARPENTER/carla /[id number] dtt: 09/21/16 1248 , COOKIE MCKEON dtd: 09/21/16 1011
--- NOTE | ~2016-09-13 | CON ---
PATIENT'S NAME: IZAIAH MUÑOZ [facility] AGE: 66 Y [address] ROOM: [place] [address] LOCATION: GPCU ADMIT DATE: 09/13/2016 Consultation DISCHARGE DATE: 09/19/2016 FAMILY PHYSICIAN: Gildardo Holman MD ATTENDING PHYSICIAN: Julieth SILVA DATE OF CONSULTATION: 09/13/2016 REFERRING PHYSICIAN: Bryon Isabel MD This is a [facility] Nephrology consultation. REASON FOR CONSULTATION: End-stage renal disease, on hemodialysis therapy. HISTORY OF PRESENT ILLNESS: This is a 66-year-old male patient who is well known to Dr. Isabel, who presents to Outpatient Dialysis today complaining of a 3-4 day onset of weakness, more in his right leg than his left leg. He has felt ill and reports low blood pressures over this time. He was initially started on hemodialysis and a thorough assessment has been performed. At that time, the patient was slow to respond and blood pressure was noted to be in the 70 systolically with a heart rate of 45-50. EMS was called, and the patient was transferred to the emergency room for further evaluation. The patient was seen by myself at [facility] prior to his transfer to the ER. The patient does have a past medical history of end-stage renal disease and does undergo hemodialysis on Monday, , Monday. 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 He also has a known history of hypertension as well as obstructive sleep apnea. Therefore, due to the patient's history of end-stage renal disease, Dr. Isabel has been asked to consult on the patient for further management of his hemodialysis while he is here in the hospital. PAST MEDICAL HISTORY: As listed above including, 1. End-stage renal disease, on hemodialysis; Monday, , Monday. 2. Anemia of chronic kidney disease. 3. Hypertension. 4. Diabetes mellitus. 5. Obstructive sleep apnea. 6. Morbid obesity. 7. Hypothyroidism. 8. GERD. PATIENT'S NAME: IZAIAH MUÑOZ [facility] AGE: 66 Y [address] ROOM: [place] [address] LOCATION: GPCU ADMIT DATE: 09/13/2016 Consultation DISCHARGE DATE: 09/19/2016 FAMILY PHYSICIAN: Gildardo Holman MD ATTENDING PHYSICIAN: Julieth SILVA 9. Chronic constipation. 10. Factor V Leiden deficiency, not on anticoagulation. PAST SURGICAL HISTORY: 1. Left fistula placement. 2. Hernia repair. 3. Right nasal endoscopy with excision of a right nasal lesion. 4. Left forearm primary radiocephalic AV fistula placement. 5. Peritoneal dialysis catheter placement and removal. 6. Bilateral carpal tunnel release. 7. Knee arthroscopy. ALLERGIES: NONE TO MEDICATION. CURRENT HOME MEDICATIONS: Include, 1. Allopurinol 100 mg twice a day. 2. Atenolol 50 mg twice a day. 3. Atorvastatin 40 mg daily at bedtime. 4. Calcitriol 1.5 mcg p.o. with dialysis. 5. Calcium acetate 667 mg p.o. p.r.n. with snacks as well as 667 mg 2 tablets p.o. t.i.d. with meals. 6. Sensipar 120 mg daily. 7. Gabapentin 300 mg daily at bedtime. 8. Lopid 600 mg twice a day. 9. Hydrocodone 1 tablet p.o. q.i.d. p.r.n. pain. 10. Levothyroxine 350 mcg daily. 11. Melatonin 10 mg daily at bedtime. 12. Actos 30 mg daily at bedtime. 13. Zantac 150 mg daily. 14. Renvela 800 mg p.r.n. with snacks and Renvela 3200 mg p.o. t.i.d. with meals. 15. Vitamin B complex 1 tablet daily. SOCIAL HISTORY: The patient does live at home with his . 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 No history of tobacco or alcohol use. FAMILY HISTORY: Reviewed and is positive for history of diabetes and hypertension. There is no history of renal disease or dialysis. REVIEW OF SYSTEMS: Essentially, unable to obtain a full review of systems due to the patient's PATIENT'S NAME: IZAIAH MUÑOZ [facility] AGE: 66 Y [address] ROOM: [place] [address] LOCATION: GPCU ADMIT DATE: 09/13/2016 Consultation DISCHARGE DATE: 09/19/2016 FAMILY PHYSICIAN: Gildardo Holman MD ATTENDING PHYSICIAN: Julieth SILVA current cognitive status. Please see HPI. There is no family here to offer further concerns or complaints. LABORATORY DATA: CBC shows white count of 7.7, hemoglobin 11.7, and platelets 187. Sodium 137, potassium 4.2, chloride 101, pCO2 of 19, BUN is 53, creatinine 7.5, and glucose 96. ABG shows a pH of 7.19, pCO2 of 61, and bicarbonate of 23.3 with oxygen saturation of 98. Lactate is 1.4. Ammonia level is 17. Prolactin level is 0.34. Chest x-ray shows vascular congestion suggesting pulmonary edema. PHYSICAL EXAMINATION: VITAL SIGNS: Blood pressure is 108/45, respiratory rate 28, pulse 71, temperature 97.9, and saturations 100% on BiPAP with FiO2 of 30. GENERAL: On exam, the patient is somnolent; however, awakens to voice and follows commands, in no acute distress. HEENT: Head: Normocephalic, atraumatic. Eyes: Pupils are equal and react briskly to light and accommodation. Nose is midline. Mouth: No gingival bleeding. NECK: Thick. No JVD. Unable to assess carotid bruits. RESPIRATORY: Breath sounds are diminished in the bases bilaterally. The patient is on BiPAP. CARDIOVASCULAR: Distant heart tones noted with a regular rate and rhythm. Unable to appreciate any murmurs, rubs, or thrills. ABDOMEN: Obese. Bowel sounds positive. EXTREMITIES: Show 1 to 2+ lower extremity edema bilaterally. ASSESSMENT AND PLAN: 1. End-stage renal disease, on hemodialysis therapy. I did discuss the patient's plan of care with Dr. Isabel at the time of admission. At this time, due to the patient's labile blood pressures, we will hold off on hemodialysis. We will plan to run him tomorrow if blood pressures do improve. We will obtain the patient's outpatient clinical record and provide hemodialysis accordingly. 2. Acute hypoxic and hypercapnic respiratory failure. This is likely secondary to decompensated obstructive sleep apnea/hypoventilation due to the patient not utilizing his CPAP over the last week. Further management per hospitalist. 3. Hyperphosphatemia. We will continue the patient's binders when he does start eating food. 4. Hypotension. The patient is currently being started on pressors. We will avoid ultrafiltration with hemodialysis at this time. This patient has been seen and assessed by Dr. Isabel. His care is being conducted in consultation with Dr. Isabel as well as me. We will plan further PATIENT'S NAME: IZAIAH MUÑOZ [facility] AGE: 66 Y [address] ROOM: [id number] [place], [place] [address] [facility] ADMIT DATE: 09/13/2016 Consultation DISCHARGE DATE: 09/19/2016 FAMILY PHYSICIAN: Gildardo Holman MD ATTENDING PHYSICIAN: Julieth SILVA recommendations as they are forthcoming. ARACELIS NOBLE DNP, FOOD MANAGEMENT AIDE FOR M MD CAMILA KNOWLES/modl /[id number] d: 09/27/162010 t: 10/05/16 [facility], CONSULTATION REPORT
--- NOTE | ~2016-09-13 | HP ---
PATIENT'S NAME: IZAIAH MUÑOZ [facility] AGE: 66 Y [address] ROOM: [address] [place], [place] [address] LOCATION: [facility] ADMIT DATE: 09/13/2016 History & Physical DISCHARGE DATE: FAMILY PHYSICIAN: Gildardo Holman MD ATTENDING PHYSICIAN: Julieth SILVA DATE OF SERVICE: CHIEF COMPLAINT: Altered mental status. HISTORY OF PRESENT ILLNESS: The patient is a 66-year-old gentleman with past medical history of ESRD, on dialysis on Monday, , Monday; diastolic heart failure; hypertension; diabetes mellitus; and obstructive sleep apnea, on CPAP, who presents here with altered mental status from home. According to , the patient was somnolent for the past few days. He is noticed to be fatigued and more sleepy than usual. [facility] while he was having his dialysis, the patient was noted to be more somnolent than usual. Blood pressure was noted to be low and with systolic blood pressure in the 70s. The patient was sent to our hospital for further investigation. According to the patient and also , the patient has been feeling fatigued with generalized weakness, and more somnolent in the past few days. The patient also reports that he has not been using his CPAP for the past week since he was sleeping on his incliner chair. He denies any fever, chills, cough, abdominal pain, shortness of breath, diarrhea, bloody stool, nausea, or vomiting. Of note, the patient has a history of left upper extremity arm fracture and has been on pain medication daily and he visits his [facility] for his medication. The patient reports that he is compliant with his medication. The patient was also admitted recently and was discharged on July 26, 2016, after he was found to have abscess around his left arterial venous fistula. The patient was treated with antibiotics and was discharged home with doxycycline. The patient also had temporary tunneled catheter placement on the right IJ that was used for his dialysis while he was on antibiotics. After antibiotic treatment, his AV fistula was working well and his tunnelled catheter was removed and is now currently having his fistula being used for his hemodialysis. MEDICAL HISTORY: Diastolic heart failure, ESRD, hypertension, diabetes mellitus type 2, obstructive sleep apnea, and obesity. SURGICAL HISTORY: Hernia repair, left forearm fistula, and history of peritoneal dialysis. PATIENT'S NAME: IZAIAH MUÑOZ [facility] AGE: 66 Y [address] ROOM: [address] [place], [place] [address] LOCATION: [facility] ADMIT DATE: 09/13/2016 History & Physical DISCHARGE DATE: FAMILY PHYSICIAN: Gildardo Holman MD ATTENDING PHYSICIAN: Julieth SILVA FAMILY HISTORY: Brother has history of diabetes mellitus, sister also has history of diabetes mellitus. 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 He has a distant history of smoking, but does not smoke currently and does not drink. MEDICATIONS: Please see MAR. REVIEW OF SYSTEMS: All systems have been reviewed and are negative except for what is mentioned in the HPI. PHYSICAL EXAMINATION: VITAL SIGNS: Blood pressure 108/45, respiratory rate of 28, pulse of 71, temperature of 97.9, and saturating 100% on BiPAP with FiO2 of 30. GENERAL APPEARANCE: The patient was somnolent, but awakes to voice and follows commands, in no acute distress. HEENT: Head: Atraumatic, normocephalic. Eyes: Sclerae nonicteric. Extraocular muscles intact. NECK: No JVD. Supple. CHEST: Bibasilar rales. No rhonchi or wheezing heard. HEART: Distant heart sounds. Regular rhythm and rate. No murmurs, rubs, or gallops heard. ABDOMEN: Ventral hernia. Bowel sounds present. Nontender. Nondistended. SKIN: Warm to touch. Bilateral lower extremity venous extremity changes. MUSCULOSKELETAL: Range of motion intact. No obvious effusion or swelling noted. NUMERICAL CONTROL ROUTER OPERATOR: Alert and oriented x3. The patient is somewhat somnolent, but awakes and follows command. Motor and Sensory: Grossly intact. LABORATORY DATA: CBC: 7.7 of white blood cell count, hemoglobin is 11.7, and platelets of 187. Sodium 137, potassium 4.2, chloride of 101, pCO2 of 19, BUN of 53, creatinine 7.5, and blood glucose of 96. Initial ABG shows pH of 7.19, pCO2 of 61, and bicarb of 23.3 with oxygen saturation of 98. MD DAVID MATHEWS/yolanda PATIENT'S NAME: IZAIAH MUÑOZ [facility] AGE: 66 Y [address] ROOM: [address] [address] LOCATION: [facility] ADMIT DATE: 09/13/2016 History & Physical DISCHARGE DATE: FAMILY PHYSICIAN: Gildardo Holman MD ATTENDING PHYSICIAN: Julieth SILVA /[id number] D: [id number] T: [id number] HISTORY & PHYSICAL
--- NOTE | ~2016-09-13 | HP ---
PATIENT'S NAME: IZAIAH MUÑOZ [facility] AGE: 66 Y [address] ROOM: [address] [place], [place] [address] LOCATION: [facility] ADMIT DATE: 09/13/2016 History & Physical DISCHARGE DATE: FAMILY PHYSICIAN: Gildardo Holman MD ATTENDING PHYSICIAN: Julieth SILVA DATE OF SERVICE: CONTINUATION OF H AND P: Repeat ABG after BiPAP shows pH of 7.32, pCO2 of 40, PO2 of 105, bicarb [place] 20[place] [address]. Lactate of 1.4. Ammonia level 17. Prolactin level of 0.34. Chest x-ray shows vascular congestion suggesting pulmonary edema. ASSESSMENT AND PLAN: The patient is a 66-year-old gentleman with past medical history of end-stage renal disease, diastolic heart failure, hypertension, diabetes mellitus, obstructive sleep apnea on CPAP, who presents here with a few days history of fatigue, somnolence, hypertension, bradycardia, and acute hypercapnic and hypoxic respiratory failure. 1. Acute hypoxic and hypercapnic respiratory failure. Etiology most likely secondary to decompensated obstructive sleep apnea/hypoventilation obesity syndrome with also involvement of chronic opioid use and possible sepsis. The patient's initial ABG which shows pH 7.19 and pCO2 of 61. The patient was given two 0.8 mg of Narcan with improvement of somnolence and also respiratory status. The patient was placed on BiPAP. ABG was taken again with which shows improvement of the ABG with pH of 7.32 and pCO2 of 40. The patient currently is awake, follows commands, and is more awake than earlier. We will continue the BiPAP overnight as the patient is supposed to be on CPAP in the evening. Chest x-ray shows congestive heart failure and also proBNP shows elevation with 87,000; however, given the patient's presentation of hypotension while on dialysis with improvement of IV fluid, we will hold off any diuretic use and also dialysis for today. The patient received 700 mL upon presentation. We will hold off IV fluid now as blood pressure has been improving. We will hold off any blood pressure medication. We will keep the patient on BiPAP and follow clinically. The patient has shown adequate improvement. 2. Acute metabolic encephalopathy. Etiology most likely secondary to CO2 narcosis which is exacerbated by current usage of pain medication. The patient's encephalopathy has improved with Narcan and BiPAP. We will hold all sedation medication including pain medication, gabapentin, and melatonin. We will continue to treat underlying etiology. There is a possibility the patient might have sepsis and keep the patient currently PATIENT'S NAME: IZAIAH MUÑOZ [facility] AGE: 66 Y [address] ROOM: [place] [address] LOCATION: [facility] ADMIT DATE: 09/13/2016 History & Physical DISCHARGE DATE: FAMILY PHYSICIAN: Gildardo Holman MD ATTENDING PHYSICIAN: Julieth SILVA on empiric antibiotic. 3. Hypotension. The patient was noted to be hypotensive on arrival with systolic blood pressure in the 70s. Lactate is 1.4. Etiology unknown for now, but we will treat empirically for now with IV antibiotics of vancomycin and Zosyn. The patient's prolactin is little bit elevated with 0.34. Since the patient has recent bacterial infection of his AV fistula and requiring some antibiotic treatment, we will acquire blood culture and we will treat with the above antibiotics. If blood culture is not revealing and there is no other source seen, we will deescalate on antibiotic. The patient's hypotension, however, is resolved with 700 mL of IV fluids. We will hold IV fluids for now and follow the patient clinically. 4. Bradycardia. On admission, the patient was noted to have bradycardia with heart rates in the 50s. EKG shows first-degree AV block with elongation of CO. We will hold atenolol. Bradycardia has improved with improvement of respiratory status and hypotension. The patient is on tele monitor, we will follow closely. 5. Decompensated hypoventilation obesity syndrome/obstructive sleep apnea. Etiology most likely secondary to noncompliance with recent use of CPAP. We will treat the underlying etiology. The patient is currently on BiPAP. 6. End-stage renal disease. Dialysis was held today as the patient was found to be with altered mental status and hypotensive during dialysis. We will hold dialysis for today to re-evaluate dialysis tomorrow morning. Nephrology is on board. 7. Diastolic heart failure. Chest x-ray shows vascular congestion [place] [address]; however, the patient presented with significantly low blood pressure while on dialysis. Thus, dialysis was withheld to reevaluate the patient for dialysis tomorrow. Holding all hypertensive medications. 8. Diabetes mellitus. We will hold home medication of oral chlorothiazide, as this is contraindicated in a patient with heart failure. The patient is currently on sliding scale insulin. 9. Morbid obesity, ongoing. I have personally reviewed the patient's medical record including but not limited to, blood work and Radiology report. Total critical care time was spent greater than 70 minutes, more than 50% of the time was spent in direct patient care and patient consultation. Case was reviewed with the patient and . All questions were answered to the patient's satisfaction. The case was also reviewed with Nephrology. The case was also reviewed with nursing staff. Due to the patient's presenting illness of hypotension, altered mental status, and hypoxic and hypercapnic respiratory failure, we will admit the patient to ICU for closer look. On admission, the patient's code status was full code. PATIENT'S NAME: IZAIAH MUÑOZ [facility] AGE: 66 Y [address] ROOM: [place] [address] LOCATION: [facility] ADMIT DATE: 09/13/2016 History & Physical DISCHARGE DATE: FAMILY PHYSICIAN: Gildardo Holman MD ATTENDING PHYSICIAN: Julieth SILVA MD DAVID MATHEWS/modl /[id number] D: [id number] T: [id number] HISTORY & PHYSICAL
--- NOTE | ~2016-09-13 | ECHO ---
Transthoracic Echocardiography Report (TTE) Demographics Patient Name IZAIAH MUÑOZ Date of Study 09/14/2016 Patient Number [id number] Visit Number [id number] Date of 1950 Room Number G6213 Gender Male Number Age 66 year(s) Referring Parth Slater MD Duplicate Maker Renetta Mcgrath, Physician RT,RVT,RDCS Physician Interpreting Gilberto Ohara Supervisor Data Processing Physician A Supervising Ordering Parth Slater MD, MD/MLP Physician Nurse Stress Coffee Farmer Conclusions Summary The estimated left ventricular ejection fraction is 45%. The left ventricle is mildly dilated . Diastolic assessment reveals Grade II pseudonormal diastolic function. . Borderline dilated right ventricle. Mild to moderately reduced right ventricular function. Small to moderate size posterior and lateral pericardial effusion. Procedure Type of Study TTE procedure:2D Echocardiogram, M-Mode, Doppler , Color Doppler. Procedure Date Date: 09/14/2016 Start: 02:42 PM Study Location: Inpatient Portable Technical Quality: Adequate visualization Indications:Arrhythmia. Appropriate Use Criteria: 9 Patient Status: Routine HR: 52 bpm BP: 114/67 mmHg Allergies - No known allergies. M-Mode/2D Measurements LV Diastolic Dimension: 6.25 cm LV Systolic Dimension: 5.52 cm LV Septum Diastolic: 1.06 cm LV Septum Systolic: 1.16 cm LV PW Diastolic: 0.92 cm LV PW Systolic: 1.26 cm Cardiac Output: 4.86 l/min AO Root Dimension: 2.7 cm Post Pericard Effusion: 1.8 cm LA Dimension: 4 cm EF Estimated: 45 % LA volume: 84 ml LVOT: 2.1 cm LVOT VTI: 27 cm LV Stroke volume: 93.47 ml Doppler Measurements AV Peak Velocity: 1.81 m/s MV Peak E-Wave: 1.16 m/s AV Peak Gradient: 13.1 mmHg MV Peak A-Wave: 1.03 m/s AV Mean Gradient: 7 mmHg MV E/A Ratio: 1.13 LVOT Peak Velocity: 0.97 m/s MV P1/2t: 96 msec TR Gradient:18.84 mmHg PV Peak Velocity: 1.24 m/s Estimated RAP:10 mmHg PV Peak Gradient: 6.15 mmHg Estimated RVSP: 29 mmHg Estimated PASP: 28.84 mmHg E' Septal Velocity: 0.04 m/s A' Septal Velocity: 0.06 m/s E' Lateral Velocity: 0.05 m/s A' Lateral Velocity: 0.09 m/s MV E/E' Ratio: 30.2 Findings Left Ventricle The left ventricle is mildly dilated . Diastolic assessment reveals Grade II pseudonormal diastolic function. . Right Ventricle Borderline dilated right ventricle. Mild to moderately reduced right ventricular function. Left Atrium The left atrium is mildly dilated by LA volume index measurement. Right Atrium Normal right atrial size. Mitral Valve Normal mitral valve structure and function. Aortic Valve The aortic valve is moderately sclerotic. Tricuspid Valve Trivial tricuspid regurgitation by color Doppler. Pulmonic Valve Normal pulmonic valve structure and function. Pericardial Effusion Small to moderate size posterior and lateral pericardial effusion. Miscellaneous No subcostal images for IVC evaluation. Pleural Effusion No evidence of pleural effusion. Contractility Score LV regional wall motion:(0-Non visualized 1-Normal 2-Hypokinesis 3-Akinesis 4-Dyskinesis 5-Aneurysm) Signature dtt: Osmel Macias dtd: 09/14/16 1442 Physician Self Edit
--- NOTE | ~2016-09-13 | ER ---
PATIENT'S NAME: IZAIAH MUÑOZ [facility] AGE: 66 Y [address] ROOM: [place] [address] LOCATION: [facility] ADMIT DATE: 09/13/2016 ER/Outpatient Report DISCHARGE DATE: FAMILY PHYSICIAN: Gildardo Holman MD ATTENDING PHYSICIAN: Julieth MEHTA Admission date and time documented in the medical record. I saw the patient at 1155 hours. CHIEF COMPLAINT: Hypotension, somnolence, bradycardia. HISTORY OF PRESENT ILLNESS: The patient is a 66-year-old male, who is known to have end-stage renal failure. He undergoes dialysis on Monday, , and Monday. He was having dialysis this morning and got about 0.5 hour into his dialysis when he became hypotensive with bradycardia. According to his , he has been somnolent for a couple of days, sleeping most of the day. He has not been very active at all. The patient was brought to the emergency room by paramedics via ambulance from the dialysis center. The patient does awake to stimuli and to voice. Denies any head pain, neck pain, spine pain, chest pain, or abdominal pain. Does not have any nausea. He has not had any vomiting or diarrhea. No real shortness of breath. The patient is satting about 98% on 3 L of oxygen per nasal cannula. He does have some peripheral edema. No skin eruptions or rash. Does have insulin-dependent diabetes mellitus type 2 and hypothyroidism. No neuro changes or psych issues. HOME MEDICATIONS: See attached medication list. ALLERGIES: NONE. SOCIAL HISTORY: Nonsmoker since 1974, nondrinker. SIGNIFICANT PAST MEDICAL HISTORY: Hypertension; insulin-dependent diabetes mellitus type 2; end-stage renal failure, on hemodialysis; obstructive sleep apnea, using CPAP; exogenous obesity; hypothyroidism; gastroesophageal reflux; constipation; factor V laden deficiency; degenerative osteoarthritis; dyslipidemia; pneumonia; anemia of chronic disease; remote tobacco abuse. OPERATIONS: Tonsillectomy, bilateral knee arthroscopy, bilateral carpal tunnel release, AV PATIENT'S NAME: IZAIAH MUÑOZ [facility] AGE: 66 Y [address] ROOM: [place] [address] LOCATION: [facility] ADMIT DATE: 09/13/2016 ER/Outpatient Report DISCHARGE DATE: FAMILY PHYSICIAN: Gildardo Holman MD ATTENDING PHYSICIAN: Julieth MEHTA fistula placement, herniorrhaphy, excision of right nasal lesion, peritoneal dialysis catheter placement. REVIEW OF SYSTEMS: All systems reviewed by me are negative with the exception of those discussed in the history of present illness. PHYSICAL EXAMINATION: VITAL SIGNS: Temperature 96.2 tympanic, pulse 52, respirations 16, blood pressure 144/58, O2 saturation on 3 L oxygen per nasal cannula is 98%. Dilshad Coma Scale is 14. HEAD: Normocephalic. No abrasion, contusion, laceration, swelling of the scalp or face. EYES: Extraocular muscles intact. PERRL. Sclerae and conjunctivae clear, nonicteric. EARS: Clear TMs bilaterally. NOSE: Clear. THROAT: Clear. Mucous membranes moist. NECK: No nuchal rigidity. No thyromegaly or cervical adenopathy. No tenderness. SPINE: Negative. LUNGS: Basilar rales. Decreased breath sounds. HEART: Bradycardic. Pulses palpable. No chest wall or ribcage pain to palpation. ABDOMEN: Obese, soft, nondistended, nontender. Active bowel tones. No organomegaly or abnormal mass palpable. No CVA tenderness. EXTREMITIES: Does have some peripheral edema, nonpitting. No cyanosis. NEUROVASCULAR: Intact. The patient is somnolent. SKIN: Clear. No noted rashes. LABORATORY DATA AND X-RAYS: EKG shows sinus bradycardia. No acute ST elevation. Chest x-ray shows cardiomegaly, increased vascular congestion consistent with congestive heart failure. Bilateral basilar pleural effusions. We will review x-ray with the radiologist. Arterial blood gases showed a pH of 7.18, pCO2 of 61, pO2 of 122 with an O2 saturation of 97% on 3 L oxygen per nasal cannula. CMS was normal except for a low CO2 content of 19, elevated anion gap of 21.2, low calcium of 7.3, elevated BUN of 53, elevated creatinine 7.5, with low GFR of 7. Magnesium was 2.3. CPK was 74. CK-MB was 1.9. Troponin was 0.053. CRP was 9.39. Thyroid tests were normal. ProBNP was 87,196. Venous pH was 7.21. Lactate was 1.4. Procalcitonin was 0.34. Serum ammonia level was 17. White count was 7700, 77 segs, 9 lymphs, 10 monos, 1 baso, hemoglobin was 11.7 with hematocrit 39.5, platelet count was 187,000. PTT was 32, pro-time was 13.4 with an INR 1.27. PATIENT'S NAME: IZAIAH MUÑOZ [facility] AGE: 66 Y [address] ROOM: [place] [address] LOCATION: [facility] ADMIT DATE: 09/13/2016 ER/Outpatient Report DISCHARGE DATE: FAMILY PHYSICIAN: Gildardo Holman MD ATTENDING PHYSICIAN: Julieth MEHTA EMERGENCY DEPARTMENT COURSE: The patient's blood pressure did drop into the 70s. We did give him a bolus of 500 mL of normal saline, then ran at 100 mL an hour. Did bring his pressure up to the high 90s to low 100s, like 102, 103 systolic. We did note that the patient does take some oxycodone, Percocet. He says he usually takes 2 to 3 a day, sometimes 1-1/2 at a time. He did take one this morning. With his renal failure, this could give him somnolence. We did note his arterial blood gases that he is hypercapnic with a pCO2 of 61. IMPRESSION: Hypotension with somnolence, bradycardia, hypercapnia. Etiology uncertain. May be due to pain medications. The patient does have a history of obstructive sleep apnea and does use CPAP at home. The patient may be septic. The patient does have end-stage renal failure, and he is on hemodialysis with congestive heart failure pattern with cardiomegaly, increased vascular congestion on chest x-ray here in the emergency department. He does have insulin-dependent diabetes mellitus and hypothyroidism plus he has exogenous obesity. He is not very active. PLAN: I did discuss the patient with the hospitalist, Dr. Mehta. Dr. Mehta is coming to the emergency room to evaluate the patient and admit the patient to the hospital. I did discuss this with the patient's and she understands. Accumulated critical care time 30 minutes. MD TAMARA ROBERTSON/modl /[id number] d: [id number] t: 09/14/16 0604, OUTPATIENT REPORT
--- NOTE | ~2016-09-13 | CON ---
PATIENT'S NAME: IZAIAH MUÑOZ [facility] AGE: 66 Y [address] ROOM: [place] [address] LOCATION: GICU ADMIT DATE: 09/13/2016 Consultation DISCHARGE DATE: FAMILY PHYSICIAN: Gildardo Holman MD ATTENDING PHYSICIAN: Julieth SILVA DATE OF CONSULTATION: 09/15/2016 REFERRING PHYSICIAN: Lisa Isabel REASON FOR CONSULT: Hypotension and bradycardia. HISTORY OF PRESENT ILLNESS: This is a 66-year-old male, admitted with acute respiratory failure, secondary to hypoventilation. He also was noted to be bradycardic and hypotensive during this event. Due to his respiratory failure, he had a metabolic encephalopathy, secondary to acidosis and was quite confused upon admission. His overall neurologic status as well as respiratory status have been much improved with supplemental oxygen and BiPAP. His health history includes chronic hemodialysis for end-stage renal disease. He denies any complaints of angina, palpitations, presyncope, or syncope. His daughter does admit that he has had 2 separate falls at home recently, but they have all been mechanical in nature due to him tripping over rugs or chairs. No notation of syncope or loss of consciousness with falls. Overall, his only complaint at this time is of lower leg pain with ambulation. He is currently under the care of the Hospitalist Service as well as Nephrology for his acute respiratory failure as well as end-stage renal disease. He appears to be in no acute distress and showing no signs and symptoms of acute coronary ischemia. PAST MEDICAL HISTORY: 1. Hypertension. 2. Hypercholesterolemia. 3. Chronic diastolic congestive heart failure. 4. End-stage renal disease, on hemodialysis. 5. History of factor V Leiden mutation with no anticoagulation. Of note, he has had bleeding from his fistula, both in June and July 2016. 6. History of GI bleeding. 7. GERD. 8. Umbilical hernia repair. 9. Diabetes mellitus, type 2. 10. Hypothyroidism. 11. Gout. 12. 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 13. Chronic low back pain and spinal stenosis. PATIENT'S NAME: IZAIAH MUÑOZ [facility] AGE: 66 Y [address] ROOM: [place] [address] LOCATION: GICU ADMIT DATE: 09/13/2016 Consultation DISCHARGE DATE: FAMILY PHYSICIAN: Gildardo Holman MD ATTENDING PHYSICIAN: Julieth SILVA PAST SURGICAL HISTORY: 1. Fistula placement in 2012. 2. Right and left carpal tunnel surgery. 3. Tonsillectomy. 4. Right and left knee scope. 5. Bilateral lower extremity vein stripping. 6. Umbilical hernia repair. 7. Removal of nasal polyps. FAMILY HISTORY: The patient's father had a history of hypertension and myocardial infarction. His mother as well as his brother and sister all have diabetes mellitus. His brother ultimately due to diabetes complications. SOCIAL HISTORY: The patient is a former cigarette smoker. He smoked 1 pack per day for a total of 40 years and quit smoking in 1974. He denies alcohol or illicit drug use. CURRENT MEDICATIONS: 1. Venofer IV with dialysis. 2. Zosyn 3.375 g IV every 12 hours. 3. Synthroid 250 mcg p.o. daily. 4. PhosLo 1334 mg p.o. 3 times daily. 5. ProAmatine 10 mg p.o. with dialysis. 6. Renvela 3200 mg p.o. 3 times daily with meals. 7. Sensipar 120 mg p.o. daily in the evening. 8. Z-Gen 1 tab p.o. daily. 9. Zyloprim 100 mg p.o. twice daily. 10. Heparin 5000 units subcutaneous 3 times daily. 11. NovoLog subcu on a mild sliding scale per a.c. and h.s. Accu-Cheks. MEDICATION ALLERGIES: No known medication allergies. REVIEW OF SYSTEMS: Pertinent positive review of systems listed in HPI. All other review of systems evaluated and negative. PHYSICAL EXAMINATION: VITAL SIGNS: Temperature 98.3, pulse 51, respirations 20, blood pressure 99/38, O2 saturation 97% on 3 L nasal cannula. The patient weighs 140.5 kg. SKIN: [place], warm, and dry. HEENT: Eyes: Sclerae clear. No xanthelasmas. ENT: Oral mucosa is pink and moist. PATIENT'S NAME: IZAIAH MUÑOZ [facility] AGE: 66 Y [address] ROOM: [place] [address] LOCATION: [facility] ADMIT DATE: 09/13/2016 Consultation DISCHARGE DATE: FAMILY PHYSICIAN: Gildardo Holman MD ATTENDING PHYSICIAN: Julieth SILVA NECK: No jugular venous distention or carotid bruits. CHEST: Respirations are even and unlabored. Lung sounds are diminished to bilateral lower lobes, and he does have poor air exchange with deep breath. CARDIAC: Regular rate and rhythm. Normal S1, S2. He does appear to be in a sinus bradycardia on his telemetry. ABDOMEN: Soft and nontender, but obese. MUSCULOSKELETAL: Equal muscle strength in upper and lower extremities bilaterally against resistance. EXTREMITIES: Peripheral pulses are palpable. No clubbing or cyanosis noted. He does have 1 to 2+ lower extremity edema present. PSYCHIATRIC: Alert and oriented. Mood and affect are appropriate. IMPRESSION AND PLAN: Per Dr. Denisse Rust. 1. Sinus Bradycardia in the setting of hypoxia. He is currently asymptomatic, and he is in no need of a pacemaker at this time. He was previously on a beta-nancy and that was stopped on 09/14/2016. 2. Hypotension, resolved. 3. Acute hypoxic and hypercapnic respiratory failure. The patient is noncompliant with his home CPAP. He is now weaned down to 3 L nasal cannula after excellent treatment with BiPAP. 4. End-stage renal disease, on hemodialysis and currently under the care of Nephrology. 5. Acute metabolic encephalopathy, secondary to respiratory acidosis, currently resolved. 6. Acute on chronic combined systolic and diastolic congestive heart failure. Most recent echocardiogram shows an estimated left ventricular ejection fraction of 45% and a grade 2 pseudo-normal diastolic function. He is also noted to be fluid overloaded, but his fluid is managed with hemodialysis. Holding off on this patient's beta-nancy as well as encouraging compliance with his CPAP will help improve his heart rate. We will continue to monitor closely, and his blood pressure has much improved. His left ventricular systolic function has mildly decreased to 45%, but still has his grade 2 diastolic dysfunction. He does have noted volume overload and would like to attempt to pull more fluid off with hemodialysis as tolerated to help with his euvolemic state achievement. Once again, there is no need for a pacemaker at this time due to no high-grade blocks and only currently being in a sinus bradycardia with a first-degree AV block. We will continue to monitor, evaluate, and treat as appropriate. Thank you for this consult. Thank you for allowing [facility] to interact in the care of this patient. PATIENT'S NAME: IZAIAH MUÑOZ [facility] AGE: 66 Y [address] ROOM: [id number] [place] [id number] LOCATION: [facility] ADMIT DATE: 09/13/2016 Consultation DISCHARGE DATE: FAMILY PHYSICIAN: Gildardo Holman MD ATTENDING PHYSICIAN: Julieth SILVA CEASAR MELISSA APRN FOR MD SARAH GARCÍA/yolanda /[id number] d: 09/15/[id number] t: 09/22/16 0627, CONSULTATION REPORT
--- NOTE | ~2016-09-13 | DS ---
PATIENT'S NAME: IZAIAH MUÑOZ [facility] AGE: 66 Y [address] ROOM: [place] [address] LOCATION: GPCU ADMIT DATE: 09/13/2016 Discharge Summary DISCHARGE DATE: 09/19/2016 FAMILY PHYSICIAN: Gildardo Holman MD ATTENDING PHYSICIAN: Janine Clancy ATTENDING PHYSICIAN: Carter Ag MD. FINAL DIAGNOSES: 1. Somnolence, resolved, likely secondary to bradycardia versus hypercapnia. 2. Acute metabolic encephalopathy, resolved. 3. Acute hypercapnic respiratory failure, resolved. 4. End-stage renal disease, on hemodialysis. 5. Moderate bilateral pleural effusion. 6. Diabetes mellitus. 7. Symptomatic bradycardia, resolved. 8. Hypertension, resolved. 9. Chronic respiratory failure with obstructive sleep apnea, on CPAP at h.s. CONSULTATIONS: 1. Cardiology CYNDEE. 2. Nephrology, Dr. Isabel. PROCEDURES: None. REASON FOR ADMISSION: This is a 66-year-old male who presented with altered mental status. The patient was evaluated in the ER and was given Narcan. He was thought to have acute metabolic encephalopathy, likely secondary to hypercapnia. He was placed on BiPAP and then placed in the ICU for further evaluation and management of somnolence, hypotension, bradycardia, and acute hypercapnic and hypoxic respiratory failure. Please see Dr. Mehta's admission H and P for further details. DIAGNOSTIC STUDIES: A transthoracic echocardiogram was done during this admission showed an ejection fraction of 45% with left ventricle mildly dilated and a grade 2 pseudonormal diastolic function was noted, borderline dilated right ventricle, and mild to moderately reduced right ventricular function was detected. Small-to moderate-sized posterior and lateral pericardial effusion was detected as well. EKG was done on a couple of different occasions during this admission and showed sinus rhythm. The patient did have bradycardia during this admission and EKG showed sinus bradycardia with a first-degree AV block and occasional PVCs. A pH on admission was 7.21, the patient was placed on BiPAP subsequently, pH was done and the pH after placement on black bicarb was 7.4; pCO2 was 61 on PATIENT'S NAME: IZAIAH MUÑOZ [facility] AGE: 66 Y [address] ROOM: [place] [address] LOCATION: GPCU ADMIT DATE: 09/13/2016 Discharge Summary DISCHARGE DATE: 09/19/2016 FAMILY PHYSICIAN: Gildardo Holman MD ATTENDING PHYSICIAN: Janine Clancy admission, had corrected after BiPAP and it was 40 subsequently; PO2 114; and bicarb 24.8 when it was last checked. Lactate 1.4 on admission. Serial Accu- Cheks were done and were in the range of 87-198. Ammonia level 17 on admission. Cardiac enzymes were done. CPK was normal. Troponin I 0.053 on admission, subsequently was 0.064. ProBNP 12182 on admission. Serial CBCs were done. White count was normal during this admission; hemoglobin 11.7 on admission, subsequently was 10.5; platelet count was within normal range. Serial BMPs were done. Electrolytes were normal. Sodium 137 on admission, 132 at the time of discharge; potassium 4.2 on admission, was increased to 5.6 on and the patient underwent dialysis, potassium on the day of discharge was 4.5 and normal; creatinine 7.5 and on the day of discharge 6.2, the patient is a hemodialysis patient; BUN was in the range of 24-60; bicarb was 19 on admission and on the day of discharge was 25. Magnesium level 2.2. Liver function tests were normal. Albumin 2.5. PT/INR was normal. INR was 1.27, PTT 32. The patient was placed on vancomycin and random vancomycin level was done to monitor. CRP 9.39 on admission. TSH 3.04, free T4 0.9. Procalcitonin level 0.34 on admission. Chest x-ray was done on admission and showed cardiomegaly, pronounced central vasculature interstitial edema consistent with congestive heart failure was noted, moderate bilateral pleural fluid effusions were suspected. The patient underwent a 2-view chest x-ray subsequently after therapy and showed marked cardiomegaly. There was stable diffuse interstitial edema, improved since prior study. Blood cultures were drawn on admission and were negative. HOSPITAL COURSE: This is a 66-year-old male who presented with somnolence. In the ER, the patient received Narcan and woke up subsequently. His somnolence was resolving, it was thought to be acute metabolic encephalopathy. The patient was also found to be as hypercapnic. He uses CPAP at .s, but had not been using a CPAP at home. He was placed on BiPAP and placed in the ICU where a sepsis workup was initiated and was found to be negative. Initially, he was placed on broad-spectrum antibiotics that were later discontinued when the workup was negative. The patient had acute hypercapnic respiratory failure. He received BiPAP therapy during this admission. Once his pCO2 stabilized and the patient was much more alert, BiPAP therapy was discontinued. The patient did require oxygen therapy and he had acute hypoxic respiratory failure during this admission. He was requiring 2-3 L of oxygen during the day. By the time of discharge, it is thought that this is likely secondary to his dialysis issues. A chest x-ray had shown that the patient had interstitial edema. Dialysis was appropriately carried out. The patient also has moderate bilateral pleural effusion. The patient was stable from a respiratory standpoint. He was using CPAP at .s. for his chronic respiratory failure, likely secondary to obstructive sleep apnea. From a respiratory standpoint, the patient did well. PATIENT'S NAME: IZAIAH MUÑOZ [facility] AGE: 66 Y [address] ROOM: [id number] [place], [place] [address] LOCATION: GPCU ADMIT DATE: 09/13/2016 Discharge Summary DISCHARGE DATE: 09/19/2016 FAMILY PHYSICIAN: Gildardo Holman MD ATTENDING PHYSICIAN: Janine Clancy The patient had acute metabolic encephalopathy. It was thought to be secondary to hypercapnia. However, the patient also had bradycardia during this admission and was hypotensive. His blood pressure was slightly on the lower side per Nephrology. He did not receive any pressor therapy. Cardiology was consulted. Cardiac enzymes were trended. No further recommendations were received from Cardiology. The patient had an echocardiogram and findings are as above. His bradycardia resolved. His atenolol was discontinued. The patient's blood pressure then stabilized. The patient then continued to do well. He received dialysis on the day prior to his discharge for elevated potassium and also for shortness of breath. He continued to do well and was discharged home with Home Health. DISCHARGE INSTRUCTIONS: The patient was discharged on a cardiac diet with activity as tolerated. Use a walker for assistance. Fall precautions to be observed. Follow up with [facility] Cardiology in 1 month's time. Follow up with Dr. Holman, his primary care physician in 3-4 days time. PCP to check CBC and BMP. The patient uses CPAP at h.s. per home settings, O2 2-3 L/minute during the day to keep sats more than 90%. RT to arrange for O2. Hemodialysis per Renal recommendations. The patient is on Monday, , and Monday schedule. The patient discharged to home with Home Health and resume physical therapy. DISCHARGE MEDICATIONS: 1. Allopurinol 100 mg p.o. b.i.d. 2. Sensipar 30 mg p.o. q.h.s. 3. PhosLo 1334 mg p.o. 3 times daily with meals. 4. PhosLo 667 mg p.o. b.i.d. p.r.n., snacks. 5. Sensipar 90 mg p.o. q.h.s. 6. Lopid 600 mg p.o. b.i.d. 7. Humibid LA 600 mg p.o. b.i.d. 8. Levothyroxine 150 mcg p.o. daily. 9. Levothyroxine 200 mcg p.o. q.a.m. 10. Midodrine 10 mg p.o. on dialysis days before dialysis. 11. Melatonin 10 mg p.o. q.h.s. 12. Renvela 800 mg p.o. b.i.d. p.r.n., snacks. 13. Renvela 3200 mg p.o. t.i.d., arrhythmia. 14. Zantac 75 mg p.o. b.i.d. 15. Vitamin B complex 1 tablet p.o. daily. 16. Calcitriol 1.5 mcg pill p.r.n. with dialysis. 17. CPAP per home settings at h.s. 18. Gabapentin 300 mg p.o. q.h.s. 19. Percocet 5/325 mg 1 tablet p.o. 4 times daily p.r.n. pain. 20. Januvia 25 mg p.o. daily. During this admission, atenolol was stopped secondary to bradycardia. Actos PATIENT'S NAME: IZAIAH MUÑOZ [facility] AGE: 66 Y [address] ROOM: [id number] [place], [place] [address] [facility] ADMIT DATE: 09/13/2016 Discharge Summary DISCHARGE DATE: 09/19/2016 FAMILY PHYSICIAN: Gildardo Holman MD ATTENDING PHYSICIAN: JuliethJanine was stopped secondary to heart failure issues and Januvia was added. The patient's pain medications were also stopped during this admission. CARTER AG MD MT/yolanda /[id number] CC: Gildardo Holman MD Harsha Isabel MD d: 09/20/16 0345 t: 10/02/16 1532, DISCHARGE SUMMARY
[~2016-09-13 11:46] MED LIST changes: -B COMPLEX1 EACH PO; -CORDARONE,PACE200 MG PO; -ELIQUIS2.5 MG PO; -HUMIBID LA (MU600 MG PO; -JANUVIA25 MG PO; -LANOXIN (DIGI125 MCG PO; -LEVAQUIN 250 M250 MG PO; -LEXAPRO20 MG PO; -LOPRESSOR25 MG PO; -MIDODRINE HCL5 MG PO; -MILK OF MA400 MG/5 M PO; -MYCOSTATIN OINT30 GM TOP; -NEURONTIN100 MG PO; -REMERON15 MG PO
[2016-09-13 12:26] LABS: BASOPHIL % 0.5 %; EOSINOPHIL % 0.1 %; HEMOGLOBIN 11.7 g/dL (11.0-16.0); IMMATURE GRANULOCYTE # 0.3 K/uL (0.0-0.3); IMMATURE GRANULOCYTE % 3.3 %; LYMPHOCYTE # 0.7 K/uL (0.8-4.0); LYMPHOCYTE % 9.3 %; MCHC 29.6 gm/dL (32.0-36.5); MCV 105.6 fl (83.0-98.0); MONOCYTE # 0.8 K/uL (0.0-1.0); MONOCYTE % 10.3 %; MPV 10.7 fl (9.4-12.4); NEUTROPHIL # (ANC) 5.9 K/uL (1.4-9.0); NEUTROPHIL % 76.5 %; NRBC % 0.5 /100WBC (0-0.00); PLATELET COUNT 187 K/uL (150-450); RDW-CV 18.6 % (11.9-14.6); WBC 7.7 K/uL (4.0-11.0)
[2016-09-13 12:27] LABS: HEMATOCRIT 39.5 % (37.0-53.0); MCH 31.3 pg (27.0-34.0); RBC 3.74 M/uL (3.50-5.50)
[2016-09-13 12:35] LABS: INR - (THERAPEUTIC) 1.27 (0.92-1.07); PROTIME 13.4 SECONDS (9.8-11.4); PTT 32 SECONDS (25-32)
[2016-09-13 12:47] LABS: ALBUMIN 2.8 gm/dL (3.5-5.0); ANION GAP 21.2 (10.0-19.0); MAGNESIUM 2.3 mg/dL (1.8-2.6); POTASSIUM 4.2 mMol/L (3.7-5.1); TOTAL PROTEIN 7.9 g/dL (6.0-8.4)
[2016-09-13 12:48] LABS: CALCIUM 7.3 mg/dL (8.5-10.5)
[2016-09-13 12:49] LABS: CREATININE 7.5 mg/dL (0.6-1.3); TOTAL BILIRUBIN 0.5 mg/dL (0.0-1.5)
[2016-09-13 14:18] LABS: BICARBONATE 23.3 mmol/L (18.0-23.0); PCO2 61 mmHg (35-45); PO2 122 mmHg (80-90)
[2016-09-13 16:50] LABS: BICARBONATE 20.6 mmol/L (18.0-23.0); PO2 105 mmHg (80-90)
[2016-09-13 16:52] LABS: PCO2 40 mmHg (35-45)
[2016-09-14 00:01] LABS: ALBUMIN 2.4 gm/dL (3.5-5.0); ANION GAP 19.1 (10.0-19.0); PHOSPHORUS 8.3 mg/dL (2.5-4.9); POTASSIUM 4.1 mMol/L (3.7-5.1)
[2016-09-14 00:02] LABS: CREATININE 8.1 mg/dL (0.6-1.3)
[2016-09-14 03:41] LABS: BICARBONATE 23.5 mmol/L (18.0-23.0)
[2016-09-14 03:42] LABS: PCO2 56 mmHg (35-45); PO2 80 mmHg (80-90)
[2016-09-14 04:24] LABS: BASOPHIL # 0.1 K/uL (0.0-0.2); BASOPHIL % 0.6 %; EOSINOPHIL # 0.2 K/uL (0.0-0.5); EOSINOPHIL % 1.9 %; HEMATOCRIT 32.8 % (37.0-53.0); HEMOGLOBIN 9.7 g/dL (11.0-16.0); IMMATURE GRANULOCYTE # 0.2 K/uL (0.0-0.3); IMMATURE GRANULOCYTE % 2.7 %; LYMPHOCYTE # 0.9 K/uL (0.8-4.0); LYMPHOCYTE % 11.1 %; MCH 31.3 pg (27.0-34.0); MCHC 29.6 gm/dL (32.0-36.5); MCV 105.8 fl (83.0-98.0); MONOCYTE # 0.8 K/uL (0.0-1.0); MONOCYTE % 10.3 %; MPV 10.4 fl (9.4-12.4); NEUTROPHIL # (ANC) 5.7 K/uL (1.4-9.0); NEUTROPHIL % 73.4 %; NRBC % 0.6 /100WBC (0-0.00); PLATELET COUNT 180 K/uL (150-450); RDW-CV 18.5 % (11.9-14.6); WBC 7.8 K/uL (4.0-11.0)
[2016-09-14 04:39] LABS: ALBUMIN 2.3 gm/dL (3.5-5.0); ANION GAP 18.1 (10.0-19.0); PHOSPHORUS 8.6 mg/dL (2.5-4.9); POTASSIUM 4.1 mMol/L (3.7-5.1)
[2016-09-14 04:44] LABS: CREATININE 8.4 mg/dL (0.6-1.3)
--- NOTE | 2016-09-14 04:50 | NUR ---
Significant Event: PATIENT IS A/OX3. FOLLOWS COMMANDS. MOVES ALL EXTREMITIES. HR'S 47-50'S. SBP 80'S-140'S. MAPS >60. CURRENTLY ON BIPAP 30%, 04/01. CHANGED BIPAP SETTING, RECHECK ABG AT 0800. O2 SATS GREATER THAN 93%. AFEBRILE. NO BM DURIN SHIFT. NO UOP. ACCU CHECKS ACHS. Follow up:DIALYSIS IN AM.
[2016-09-14 08:20] LABS: BICARBONATE 21.4 mmol/L (18.0-23.0); PCO2 50 mmHg (35-45); PO2 80 mmHg (80-90)
[2016-09-14 14:21] LABS: BICARBONATE 24.8 mmol/L (18.0-23.0); PCO2 40 mmHg (35-45); PO2 114 mmHg (80-90)
--- NOTE | 2016-09-14 17:28 | NUR ---
Significant Event: Patient was sleepy this am, but always aroused easily. He is more awake this afternoon. He is off Bipap to 3L nasal canula during meals and tolerates well. Dialysis was done this afternoon in hopes to pull fluid and clear the lungs up. They were only able to pull 2L of fluid and will attempt again tomorrow. Lung sounds do not have crackles anymore, but are still pretty diminished. He was up to the bathroom with 2 assist and tolerated well. Had a large BM and small void. Blood pressures labile, but always rebound with a little time. Heart rate is still kailye when at rest. An Echo and an EKG were done this afternoon. Follow up: Continue to monitor
[2016-09-14 21:50] LABS: ANION GAP 14.8 (10.0-19.0); CALCIUM 7.3 mg/dL (8.5-10.5); CREATININE 5.7 mg/dL (0.6-1.3); POTASSIUM 3.8 mMol/L (3.7-5.1)
--- NOTE | 2016-09-15 05:21 | NUR ---
PT RESTING COMFORTABLY THROUGHOUT SHIFT. CONTINUES TO USE BIPAP QHS, 3LNC WHILE AWAKE. TOLERATING DIET WELL; NO BM THIS SHIFT. NO VOID THIS SHIFT. NO NEW SKIN ISSUES. BP REMAINS BOARDERLINE HYPOTENSIVE WHILE ASLEEP, MAPS CONTINUE TO BE HIGH 50S TO LOW 60S FOLLOWING THE TREND FROM DAY SHIFT. SBP 90S-110S. NEURO STATUS REMAINS INTACT. WILBERTO CHAIREZ RN
[2016-09-15 05:44] LABS: BASOPHIL % 0.6 %; EOSINOPHIL # 0.2 K/uL (0.0-0.5); EOSINOPHIL % 2.7 %; HEMATOCRIT 36.3 % (37.0-53.0); HEMOGLOBIN 10.7 g/dL (11.0-16.0); IMMATURE GRANULOCYTE # 0.2 K/uL (0.0-0.3); IMMATURE GRANULOCYTE % 3.2 %; LYMPHOCYTE # 0.9 K/uL (0.8-4.0); LYMPHOCYTE % 14.1 %; MCH 31.1 pg (27.0-34.0); MCHC 29.5 gm/dL (32.0-36.5); MCV 105.5 fl (83.0-98.0); MONOCYTE # 0.8 K/uL (0.0-1.0); MONOCYTE % 12.9 %; MPV 10.3 fl (9.4-12.4); NEUTROPHIL # (ANC) 4.2 K/uL (1.4-9.0); NEUTROPHIL % 66.5 %; NRBC % 0.6 /100WBC (0-0.00); PLATELET COUNT 202 K/uL (150-450); RBC 3.44 M/uL (3.50-5.50); RDW-CV 18.7 % (11.9-14.6); WBC 6.3 K/uL (4.0-11.0)
[2016-09-15 06:00] LABS: ALBUMIN 2.8 gm/dL (3.5-5.0); ANION GAP 14.1 (10.0-19.0); POTASSIUM 4.1 mMol/L (3.7-5.1); TOTAL BILIRUBIN 0.4 mg/dL (0.0-1.5); TOTAL PROTEIN 7.8 g/dL (6.0-8.4)
[2016-09-15 06:02] LABS: CALCIUM 7.2 mg/dL (8.5-10.5); CREATININE 6.2 mg/dL (0.6-1.3)
--- NOTE | 2016-09-15 12:11 | NUR ---
Introduced self and role of care management to patient. He lives in [place] with his . He states that normally he is able to do his ADL's independently however recently it has become more difficult. He states that his has been assisting when needed. His drives him to [facility] 3 times a week for dialysis. He plans to return home on discharge. He denies ay needs at this time. Will continue to follow.
--- NOTE | 2016-09-15 16:43 | NUR ---
SIGNIFICANT EVENT: PATIENT WAS CONSISTENTLY DROWSY AT THE BEGINING OF THE SHIFT, WAS FALLING ASLEEP MID SENTENCE, ALERT TO NOXIOUS STIMULATION. NOW PATIENT OPENS EYES SPONTANEOUSLY AND TO VOICE. PUPILS EQUAL AND REACTIVE. ORIENTED X3. SPEECH CONTINUES TO BE SLOW AND MUMMBLED. NO FACIAL ASYMMETRY. PATIENT MOVES ALL 4 EXTREMITIES SPONTANEOUSLY AND TO COMMANDS. EQUAL STRENGTH IN BILATERAL LOWER EXTREMITIES, R) UPPER EXTREMITY LIMITED ROM R/T "SHOULDER FRACTURE" REPORTED BY PATIENT. GENERALIZED WEAKNESS. AMBULATES IN ROOM USING A GAITBELT, 2 PERSON ASSIST, AND WALKER; UNSTEADY GAIT. PATIENT HAS BEEN IN BREADY SINUS RHYTHM, HR 50-60S. CARDIOLOGY CONSULT COMPLETED TODAY. PULSES THREADY THROUGHOUT. BP HYPOTENSIVE AT TIMES. SBP 70-160S, MAP 40-70S. [facility] BP ALSO CHECKED, SBP 90S-110S, DBP 40-50S. AFEBRILE. PATIENT HAS BEEN ON 2-3L OF OXYGEN PER NASAL CANNULA, SATS LOWER TO MID 90S. BOWEL SOUNDS PRESENT, 1 LARGE FORMED BM TODAY. ACCU CHECKS EVERY 4 HOURS. LOW URINE OUTPUT, 10 ML TOTAL, PATIENT REPORTS THIS NORMAL. NO NEW SKIN ISSUES NOTED. FOLLOW UP: DIALYSIS IN AM, IF STABLE, 2 VIEW CHEST XRAY IN AM.
--- NOTE | 2016-09-16 05:37 | NUR ---
Significant Event: Patient seems more alert throughout shift than reported throughout day. Oriented x3. Does have occasional periods of removing equipement, but remains oriented x3 and CAM negative. VSS on 2L/NC. Refused to wear bipap throughout much of night, also refused some turns. Lung sounds clear and dim throughout. Bowel sounds active, no bm this shift. No UOP this shift. No new or worsening skin issues. Afebrile. PIVx1 infusing zosyn at this time. Follow up: Transfer. Dialysis planned today.
[2016-09-16 05:39] LABS: BASOPHIL % 0.6 %; EOSINOPHIL # 0.1 K/uL (0.0-0.5); EOSINOPHIL % 1.5 %; HEMATOCRIT 34.6 % (37.0-53.0); HEMOGLOBIN 10.5 g/dL (11.0-16.0); IMMATURE GRANULOCYTE # 0.3 K/uL (0.0-0.3); IMMATURE GRANULOCYTE % 4.7 %; LYMPHOCYTE # 0.8 K/uL (0.8-4.0); LYMPHOCYTE % 10.5 %; MCH 31.6 pg (27.0-34.0); MCHC 30.3 gm/dL (32.0-36.5); MCV 104.2 fl (83.0-98.0); MONOCYTE # 0.8 K/uL (0.0-1.0); MONOCYTE % 11.7 %; MPV 9.7 fl (9.4-12.4); NEUTROPHIL # (ANC) 5.1 K/uL (1.4-9.0); NRBC % 0.6 /100WBC (0-0.00); PLATELET COUNT 188 K/uL (150-450); RBC 3.32 M/uL (3.50-5.50); RDW-CV 18.6 % (11.9-14.6); WBC 7.2 K/uL (4.0-11.0)
[2016-09-16 05:58] LABS: ALBUMIN 2.5 gm/dL (3.5-5.0); ANION GAP 17.4 (10.0-19.0); CALCIUM 7.3 mg/dL (8.5-10.5); CREATININE 7.5 mg/dL (0.6-1.3); POTASSIUM 4.4 mMol/L (3.7-5.1); TOTAL BILIRUBIN 0.4 mg/dL (0.0-1.5); TOTAL PROTEIN 7.4 g/dL (6.0-8.4)
--- NOTE | 2016-09-16 14:14 | NUR ---
Occupational Therapy Note: OT attempted to complete pt OT eval however pt was at dialysis. OT will check back tomorrow as appropriate. Thank you, Andriy Pickens, OTR/L
--- NOTE | 2016-09-16 14:54 | NUR ---
Patient not seen by Physical Therapy this afternoon due to patient being gone from hospital room to Dialysis. Plan to see patient next therapy day. 09/16/16 Lynn Burgos,PT
--- NOTE | 2016-09-16 17:51 | NUR ---
Significant Event: Patient is A&O X3, follows all commands. Patient has been drowsy today but arouses easily. Pupils are equal and reactive. SBP have been low 100's-140's, MAP's 70's-80's, HR have been 50's-60's. Patient is on 2L NC with o2 sats mid to upper 90's. Lung sounds are clear and diminished. Patient went to Dialysis at 1315. Patient is Anuric. 2 assist to the chair. Follow up:
--- NOTE | 2016-09-17 00:28 | NUR ---
Significant Event: Patient alert and oriented, drowsey. Denies abnormal sensation. VSS on 2L oxygen. Transfers with 2 assist. Fistula to left arm positive for thrill and bruite. AC/HS accuchecks. No coverage this shift. Pleasant and cooperative with cares. Follow up: continue plan of care
--- NOTE | 2016-09-17 05:12 | NUR ---
Significant Event:alert&orientedx3.VSS.2L NC oxygen majority of night, CPAP on intermittently.Pt c/o R leg pain, tylenol given once. 2a/fww/GB. BSC.HD done 09/16,LUE fistula. COnt to monitor Follow up:Cont w/plan of care
[2016-09-17 06:36] LABS: HEMATOCRIT 37.6 % (37.0-53.0); HEMOGLOBIN 11.5 g/dL (11.0-16.0); MCH 31.9 pg (27.0-34.0); MCHC 30.6 gm/dL (32.0-36.5); MCV 104.2 fl (83.0-98.0); PLATELET COUNT 189 K/uL (150-450); RBC 3.61 M/uL (3.50-5.50); RDW-CV 18.6 % (11.9-14.6); WBC 6.7 K/uL (4.0-11.0)
[2016-09-17 07:03] LABS: ABSOLUTE NEUTROPHIL CT (ANC) 5.1 K/uL (1.4-9.0); BANDED NEUTROPHIL # 0.5 K/uL (0.0-0.1); BANDED NEUTROPHILS % 7 %; LYMPHOCYTE # 0.6 K/uL (0.8-4.0); LYMPHOCYTE % 9 %; MONOCYTE # 0.8 K/uL (0.0-1.0); SEGMENTED NEUTROPHIL # 4.6 K/uL (1.4-9.0); SEGMENTED NEUTROPHIL % 69 %
[2016-09-17 07:30] LABS: ANION GAP 13.2 (10.0-19.0); CALCIUM 7.8 mg/dL (8.5-10.5); POTASSIUM 4.2 mMol/L (3.7-5.1)
[2016-09-17 07:31] LABS: CREATININE 5.2 mg/dL (0.6-1.3)
--- NOTE | 2016-09-17 11:01 | NUR ---
A - PT SCREENED D/T LOS. DIALYSIS. 1-2+ EDEMA. HT: 69" WT: 315# BMI: 46.5 LABS: ACCUCHECK WNL->200, NA 131, BUN/CR 24/5.2, ALB 2.5, PHOS 5.5, CRP 9.39. MEDS: PEPCID, PROTONIX, PHOSLO, RENVELA, SYNTHROID, SSI, NAUSEA DIET: RENAL. INTAKE: O-100%, AVG ~51% NEEDS: 6928-2409 KCAL (30-35 KCAL/KG IBW), 88-102 G PRO (1.2-1.4 G/KG IBW), 2190 ML FLUID (1 ML/KCAL) D - INADEQUATE NUTRIENT INTAKE R/T DECREASED APPETITE AEB INTAKE RECORD. I - GOAL FOR INTAKE 50-100% BY NEXT ASSESSMENT. WILL ADD GLUCERNA BID TO INC NUTRIENT INTAKE. M/E - WILL MONITOR INTAKE F/U IN 3-4 DAYS.
--- NOTE | 2016-09-17 17:20 | NUR ---
Significant Event: PT HAS HAD COPIOUS AMOUNTS OF PHELM THIS SHIFT. HAIR STARTED THIS AM. AFTER PT BACK IN BED PT HAS NOT COUGHED ONCE. PT HAS ALSO NOT EATTEN HARDLY AT ALL TODAY. UP TO CHAIR MOST OF THE EARLY PART OF THE SHIFT, LAYED DOWN MID AFTERNOON. DENIES NEEDS OR PAIN. Follow up: MONITOR
--- NOTE | 2016-09-18 04:38 | NUR ---
Significant Event:A&O. COOPERATIVE WITH CARES. TREND OX THIS SHIFT PER RT. VSS. UNEVENTFUL NIGHT.DENIES PAIN OR SOB Follow up:CONT TO MONITOR
[2016-09-18 04:43] LABS: HEMATOCRIT 39.9 % (37.0-53.0); HEMOGLOBIN 12.2 g/dL (11.0-16.0); MCH 31.7 pg (27.0-34.0); MCHC 30.6 gm/dL (32.0-36.5); MCV 103.6 fl (83.0-98.0); MPV 9.8 fl (9.4-12.4); PLATELET COUNT 188 K/uL (150-450); RBC 3.85 M/uL (3.50-5.50); RDW-CV 18.6 % (11.9-14.6); WBC 7.3 K/uL (4.0-11.0)
[2016-09-18 04:56] LABS: CALCIUM 7.6 mg/dL (8.5-10.5)
[2016-09-18 05:09] LABS: ANION GAP 19.6 (10.0-19.0); CREATININE 6.4 mg/dL (0.6-1.3); POTASSIUM 5.6 mMol/L (3.7-5.1)
[2016-09-18 05:25] LABS: ABSOLUTE NEUTROPHIL CT (ANC) 5.3 K/uL (1.4-9.0); BANDED NEUTROPHIL # 0.4 K/uL (0.0-0.1); BANDED NEUTROPHILS % 5 %; LYMPHOCYTE # 0.9 K/uL (0.8-4.0); LYMPHOCYTE % 13 %; MONOCYTE # 0.7 K/uL (0.0-1.0); SEGMENTED NEUTROPHIL % 68 %
--- NOTE | 2016-09-18 16:34 | NUR ---
1600 PT RETURNS FROM DIAYSIS ALL 1500 ASSESSMENTS DONE AND CHARTED AT 1600
--- NOTE | 2016-09-18 17:22 | NUR ---
Significant Event: DIALSIS TODAY FOR k+ OF 5.6 AND CREAT. 6.5. DC ORDERS WRITTEN FOR AM BUT DR WILL NEED TO SEE HIM BEFORE HE GOES, OK TO LEAVE IV OUT. C PAP AT NIGHT. NO UOP Follow up: MONITOR
[2016-09-19 03:57] LABS: HEMATOCRIT 33.8 % (37.0-53.0); HEMOGLOBIN 10.5 g/dL (11.0-16.0); MCH 32.1 pg (27.0-34.0); MCHC 31.1 gm/dL (32.0-36.5); MCV 103.4 fl (83.0-98.0); MPV 10.1 fl (9.4-12.4); PLATELET COUNT 187 K/uL (150-450); RBC 3.27 M/uL (3.50-5.50); RDW-CV 18.3 % (11.9-14.6); WBC 5.4 K/uL (4.0-11.0)
[2016-09-19 04:15] LABS: CALCIUM 7.9 mg/dL (8.5-10.5)
[2016-09-19 04:21] LABS: ANION GAP 13.5 (10.0-19.0); CREATININE 6.2 mg/dL (0.6-1.3); POTASSIUM 4.5 mMol/L (3.7-5.1)
[2016-09-19 05:53] LABS: ABSOLUTE NEUTROPHIL CT (ANC) 3.8 K/uL (1.4-9.0); BANDED NEUTROPHIL # 0.4 K/uL (0.0-0.1); BANDED NEUTROPHILS % 8 %; LYMPHOCYTE # 0.6 K/uL (0.8-4.0); LYMPHOCYTE % 11 %; MONOCYTE # 0.5 K/uL (0.0-1.0); SEGMENTED NEUTROPHIL # 3.4 K/uL (1.4-9.0); SEGMENTED NEUTROPHIL % 62 %
--- NOTE | 2016-09-19 07:33 | NUR ---
Significant Event:a&o. denies pain. 2L NC, CPAP at night. VSS. Follow up:dismissal 09/19
[2016-09-19] MEDS ORDERED: HUMIBID LA (MU600 MG PO (12:11)
[2016-09-19] MEDS ORDERED: JANUVIA25 MG PO (12:20)
[2016-09-19] MEDS ORDERED: MIDODRINE HCL5 MG PO (13:03)
--- NOTE | 2016-09-19 15:18 | NUR ---
Discharge Summary: Patient A/O x 3. Forgetful. Vital signs stable: HR 55, BP 136/62, O2 saturation 92% on 2L, RR 20, temperaure 97.9F and denies pain. Dismissal instructions include: new medications/medication changes, signs/symptoms to be alert for, follow-up appointments with Kirby Holman on 09/26/[address] Macias on 10/24/16 at 1130, as well as oxygen safety. Patient and verbalize understanding of all teaching. Home oxygen safety discussed and set up. Diabetes education completed and booklet given to patient. Discharge from monitor and left PCU at 1345 per wheelchair to [facility] entrance and then home to self care with . No other needs at time of discharge. Oumar RN 09/19/16
== END 2016-09-19 13:45 | disposition home health service (06) | DRG 189 ==
LOC: GMED 11:46 → GICU 14:43 → GPCU 09-16 22:12
PROVIDERS: Emergency Medicine; Family Medicine; Internal Medicine; Nurse Practitioner; ADMIT Internal Medicine
PROC: 5A09457 Assistance with Respiratory Ventilation, 24-96 Consecutive Hours, Continuous Positive Airway Pressure (ICD-10-PCS; principal; 2016-09-13)
PROC: B246ZZZ Ultrasonography of Right and Left Heart (ICD-10-PCS; 2016-09-14)
PROC: 5A1D60Z (ICD-10-PCS; 2016-09-14)
DX: J96.21 Acute and chronic respiratory failure with hypoxia (principal); G93.41 Metabolic encephalopathy; I50.43 Acute on chronic combined systolic (congestive) and diastolic (congestive) heart failure; N18.6 End stage renal disease; J90 Pleural effusion, not elsewhere classified; E87.2 Acidosis; I13.2 Hypertensive heart and chronic kidney disease with heart failure and with stage 5 chronic kidney disease, or end stage renal disease; E66.2 Morbid (severe) obesity with alveolar hypoventilation; Z68.42 Body mass index [BMI] 45.0-49.9, adult; E11.22 Type 2 diabetes mellitus with diabetic chronic kidney disease; Z99.2 Dependence on renal dialysis; Z91.19 Patient's noncompliance with other medical treatment and regimen; D63.8 Anemia in other chronic diseases classified elsewhere; E03.9 Hypothyroidism, unspecified; I44.0 Atrioventricular block, first degree
CPT/HCPCS: J1644; J1756; J2310; J2405; J2543; J3370; J7030; J7050; P9047; Q9957

== ENCOUNTER → 2016-09-13 | Outpatient (CLI) | payer MEDICARE, OTHER | END | disposition disaster alternative care site (69) | LOC: GAMB 11:23 | DX: R53.1 Weakness (principal); N18.3 Chronic kidney disease, stage 3 (moderate); I10 Essential (primary) hypertension; E03.9 Hypothyroidism, unspecified; Z79.4 Long term (current) use of insulin; Z79.891 Long term (current) use of opiate analgesic; Z79.899 Other long term (current) drug therapy | CPT/HCPCS: A0422; A0425; A0427 ==

== ENCOUNTER 2016-10-04 15:01 | Inpatient (IN) | payer MEDICARE, OTHER ==
[~2016-10-04] VITALS: Ht 175.3 cm; Wt 126.4 kg
--- NOTE | ~2016-10-04 | CON ---
PATIENT'S NAME: IZAIAH MUÑOZ [facility] AGE: 66 Y [address] ROOM: [address] [address] LOCATION: GPCU ADMIT DATE: 10/04/2016 Consultation DISCHARGE DATE: 10/16/2016 FAMILY PHYSICIAN: Gildardo Holman MD ATTENDING PHYSICIAN: Darren Auguste DATE OF CONSULTATION: 10/11/2016 REFERRING PHYSICIAN: Eric Aguero MD ADDENDUM: The Date of Service for my consult would be October 11, 2016. MD URSULA DAWN/yolanda /[id number] d: 12/10/16 1830 t: 12/12/16 1434, CONSULTATION REPORT
--- NOTE | ~2016-10-04 | CON ---
PATIENT'S NAME: IZAIAH MUÑOZ [facility] AGE: 66 Y [address] ROOM: [id number] [place], [place] [address] LOCATION: GPCU ADMIT DATE: 10/04/2016 Consultation DISCHARGE DATE: FAMILY PHYSICIAN: Gildardo Holman MD ATTENDING PHYSICIAN: XIANG PETER REFERRING PHYSICIAN: Eric Aguero MD IDENTIFYING INFORMATION/REASON FOR CONSULT: Xavier is a 66-year-old white male, has been admitted to [facility] since 10/04/2016 for atrial fibrillation, amongst other medical complications. Over here observe with the team to be quite motivated and clinically depressed. No initiation and the participation in physical therapy seems to be some part as well. Psych consult was obtained to look into the depression. CHIEF COMPLAINT: "I know I have not been getting 100%." HISTORY OF PRESENT ILLNESS: Izaiah states that he has no prior history of any mental health treatment. The is present as well and was able to provide . Izaiah talks about significant medical issues that have been involving over the years. Suffers from end-stage renal disease and has been on hemodialysis along with diabetes, dyslipidemia, obstructive sleep apnea, and COPD. However, overall was doing fairly okay until about April of last year. The couple states that he had a fall at [employer] incurred injuries to his shoulder and since then, he has not been able to get back to that level of activity. Before that was independent, was driving himself, but since then has not been able to do any of that where he finds himself in a very dependent position and that has taken a toll on his mood as well. Izaiah talks about how he has lost interest and anhedonia, no energy, motivation and same is corroborated by the as well. Over here, has been started on Lexapro 10 mg on 10/08/2016. No clinical improvement noted yet, but no side effects as well, also Xanax has been initiated on a p.r.n. basis. Izaiah talks about "feeling crappy" and also some anxiety. Sleep has not been the best, for more importantly it has been just blunting of emotions "feels blah" and has lost the motivation and drive to be more activating and more participating in his own treatment. Otherwise, a polite compliant, but more passively does what he is supposed to, but not having the and the clinical energy and spunk. PSYCHIATRIC HISTORY: Started on Lexapro 2 days ago. Besides that, no prior mental health treatment. PATIENT'S NAME: IZAIAH MUÑOZ [facility] AGE: 66 Y [address] ROOM: [place] [address] [facility] ADMIT DATE: 10/04/2016 Consultation DISCHARGE DATE: FAMILY PHYSICIAN: Gildardo Holman MD ATTENDING PHYSICIAN: XIANG PETER MEDICAL HISTORY: End-stage renal disease, anemia, type 2 diabetes, obstructive sleep apnea, hypertension, morbid obesity Drug and alcohol history declines. PERSONAL AND SOCIAL HISTORY: Lives with his in [place]. Denies any active drug use. MENTAL STATUS EXAMINATION: Appeared stated age, overweight, lying in his bed. Affect was restricted. Not much spontaneous conversation. A brief responses to whatever was asked. Alert and oriented. Fairly cooperative and acknowledged that he is not feeling the best and feels clinically depressed. No suicidal or homicidal ideations. States that he wants to feel better and able to participate in a meaningful conversation. No elements of any psychosis. Judgment and insight are fair. DIAGNOSES: 1. Major depressive disorder, recurrent. 2. End-stage renal disease. 3. Atrial fibrillation. PLAN: Significant medical morbidity. At this time, we will increase the Lexapro to 20 mg in the morning. In the short term, it would be open to a trial of small dose of Ritalin at 5 mg b.i.d. at 8:00 a.m. and noon for the 1st one day and then go up to 10 mg b.i.d. (8:00 a.m. and noon). Could be a short-term measure. Just to give him increased energy and motivation in the short term. Otherwise, antidepressant might take several weeks to take clinical effect. However, given the significant medical issues and the atrial fibrillation, would like that to be run through by the medical team and they feel comfortable with small dose of Ritalin to initiate per the instructions as mentioned above. Please call with specific questions. MD URSULA DAWN/yolanda PATIENT'S NAME: IZAIAH MUÑOZ [facility] AGE: 66 Y [address] ROOM: [place] [address] LOCATION: [facility] ADMIT DATE: 10/04/2016 Consultation DISCHARGE DATE: FAMILY PHYSICIAN: Gildardo Holman MD ATTENDING PHYSICIAN: XIANG PETER /[id number] d: 10/11/162331 t: 10/19/16 1726, CONSULTATION REPORT
--- NOTE | ~2016-10-04 | HP ---
PATIENT'S NAME: IZAIAH MUÑZO [facility] AGE: 66 Y [address] ROOM: [address] [address] LOCATION: GPCU ADMIT DATE: 10/04/2016 History & Physical DISCHARGE DATE: FAMILY PHYSICIAN: Gildardo Holman MD ATTENDING PHYSICIAN: XIANG PETER DATE OF SERVICE: CHIEF COMPLAINT: "Feeling queazy." HISTORY OF PRESENT ILLNESS: A 66-year-old gentleman with a past medical history of end-stage renal disease, secondary to diabetes on Monday, , Monday dialysis, diabetes mellitus, not on any insulin anymore, issues with hypotension with the dialysis on midodrine, heart failure with preserved ejection fraction, with last known ejection fraction of 45% who have been in and out of the hospital multiple times, was admitted through the emergency department from the Dialysis Unit, where he was found to have low blood pressures while during the dialysis. Per verbal report, it appears that the blood pressure dipped down into the 70s. He was brought in the emergency department, where initial evaluation by the ED physician showed atrial fibrillation with RVR as well as hypotension, but that hypotension resolved on its own. On my encounter, he still think that he is feeling shaky and queasy. He denied any chest discomfort, any palpitations, any shortness of breath, any cough, any sputum production, any dizziness, any trouble with the eyes, any trouble swallowing, any abdominal pain, any constipation, or any diarrhea. He makes very little urine. He did endorse having leg swelling, which has been a chronic problem for him. REVIEW OF SYSTEMS: All other systems reviewed and were negative except what is mentioned in the HPI. PAST MEDICAL HISTORY: Past medical is significant for end-stage renal disease, on Monday, , and Monday dialysis, type 2 diabetes mellitus, not on insulin anymore, symptomatic bradycardia, which have been issue in the last hospitalization, not present anymore, hypertension, hyperlipidemia, obstructive sleep apnea, chronic hypoxic respiratory failure on 2 L of oxygen, per pulse oximetry from last hospitalization. PAST SURGICAL HISTORY: Hernia repair, left forearm fistula, and history of peritoneal dialysis. PATIENT'S NAME: IZAIAH MUÑOZ [facility] AGE: 66 Y [address] ROOM: [id number] [place], [place] [address] [facility]: [facility] ADMIT DATE: 10/04/2016 History & Physical DISCHARGE DATE: FAMILY PHYSICIAN: Gildardo Holman MD ATTENDING PHYSICIAN: XIANG PETER FAMILY HISTORY: Brother has history of diabetes mellitus. SOCIAL HISTORY: Quit smoking in 1974. does not drink. MEDICATIONS: Medication reconciliation is being done. NKDA PHYSICAL EXAMINATION: VITAL SIGNS: Heart rate 121, 110/90, 16, afebrile, satting 94% on 2 L. GENERAL: No acute distress. Alert and oriented x3. HEENT: Head: Atraumatic, normocephalic. Eyes: Nonicteric. No pallor. Oropharynx, moist mucous membranes. NECK: Cannot assess JVD due to the habitus. No thyromegaly noted. CARDIOVASCULAR: Irregular S1, S2. Variable S1. No murmurs, gallops, or rubs appreciated. LUNGS: Clear to auscultation bilaterally. Decreased breath sounds at the bases. ABDOMEN: Soft, nontender, nondistended. Bowel sounds present. EXTREMITIES: A +2 extremity edema as well as venous stasis dermatitis. MUSCULOSKELETAL: No muscle tenderness or joint swelling noted. PSYCH: Normal affect, mood, and speech. NEUROLOGIC: Cranial nerves 2 through 12 intact. No motor or sensory deficit noted. LABORATORY DATA: EKG done in the emergency department showed atrial fibrillation with rapid ventricular rate. Chest x-ray was done, which did show bilateral pleural effusion. Labs showed lactic acid 1.0, troponin less than 0.040. CBC showed hemoglobin of 10.3, white count of 5.6, platelets 161, BUN and creatinine was 25 and 5.0, sodium 133, potassium 3.7, chloride 98, bicarbonate 26, calcium 8.8, alkaline phosphatase 160. INR was 1.1. CRP 160. ASSESSMENT: 1. Atrial fibrillation with rapid ventricular rate. 2. Bilateral pleural effusion. 3. Heart failure with preserved ejection fraction. 4. End-stage renal disease. 5. Type 2 diabetes mellitus. 6. Gout. 7. Hyperlipidemia. 8. Hypothyroidism. 9. History of gastritis. PATIENT'S NAME: IZAIAH MUÑOZ [facility] AGE: 66 Y [address] ROOM: [id number] [place], [place] [address] LOCATION: GPCU ADMIT DATE: 10/04/2016 History & Physical DISCHARGE DATE: FAMILY PHYSICIAN: Gildardo oHlman MD ATTENDING PHYSICIAN: XIANG PETER PLAN: We are going to admit this patient to the PCU. We are going start him on Cardizem drip with parameters with a heart rate less than 100 and blood pressure greater than 90. I did talk to Dr. Aguero on-call and decided to start IV heparin in consultation with him. He is going to see the patient once on the floor. We will monitor his status and further management of AFib will be decided by the Cardiology. Heart failure with preserved ejection fraction, acute exacerbation, appears that this is secondary to diastolic heart failure and not completing the whole session of dialysis today. We will keep an eye on that and monitor his respiratory status from that standpoint. Pro-BNP has been ordered. Pleural effusion, it does look like this is secondary to heart failure and will be taken care of with the next dialysis session. End-stage renal disease, we will consult Nephrology. Diabetes mellitus, hold the oral antidiabetic medication at this point, sliding scale insulin, and watch the glucose levels. Continue the home dose of allopurinol for gout. DVT prophylaxis, the patient is going to be on IV heparin drip. XIANG PETER MD JENNIFER/modl /[id number] D: [id number] T: [id number] HISTORY & PHYSICAL
--- NOTE | ~2016-10-04 | CON ---
PATIENT'S NAME: IZAIAH MUÑOZ [facility] AGE: 66 Y [address] ROOM: [place] [address] LOCATION: GPCU ADMIT DATE: 10/04/2016 Consultation DISCHARGE DATE: FAMILY PHYSICIAN: Gildardo Holman MD ATTENDING PHYSICIAN: XIANG PETER DATE OF CONSULTATION: 10/05/2016 REFERRING PHYSICIAN: Eric Aguero MD CARDIOLOGY CONSULTATION REASON FOR CONSULTATION: Atrial fibrillation with a rapid ventricular response. HISTORY OF PRESENT ILLNESS: This is a 66-year-old male, familiar to [facility] and was last seen by us on 09/15/2016 for a diagnosis of hypotension and bradycardia in the setting of hypoxia and hypercapnic respiratory failure secondary to noncompliance with CPAP use. He presents this admission from the emergency department after a run of hemodialysis in which point he became hypotensive. During his evaluation, he was found to be in atrial fibrillation with a rapid ventricular response. Of note, during his last hospitalization, his beta- nancy was discontinued due to his bradycardia at that time. Echocardiogram last on 09/14/2016 showed an ejection fraction of 45% with a grade 2 diastolic dysfunction. He does have complaints of palpitations, but overall denies any other symptoms including presyncope or syncope, nausea, vomiting, chest pain, or shortness of breath. PAST MEDICAL HISTORY: Unchanged from my dictation on 09/15/2016. FAMILY HISTORY: Unchanged from my dictation on 09/15/2016. SOCIAL HISTORY: Unchanged from my dictation on 09/15/2016. CURRENT MEDICATIONS: 1. Cardizem drip IV with titration per parameters for heart rate. 2. Synthroid 350 mcg p.o. daily. 3. Lipitor 40 mg p.o. daily. 4. Neurontin 300 mg p.o. daily in the evening. 5. PhosLo 1334 mg p.o. 3 times daily. 6. ProAmatine 10 mg p.o. with dialysis. 7. Protonix 40 mg p.o. daily. PATIENT'S NAME: IZAIAH MUÑOZ [facility] AGE: 66 Y [address] ROOM: [place] [address] LOCATION: GPCU ADMIT DATE: 10/04/2016 Consultation DISCHARGE DATE: FAMILY PHYSICIAN: Gildardo Holman MD ATTENDING PHYSICIAN: XIANG PETER 8. Renvela 3200 mg p.o. 3 times daily with meals. 9. Rocaltrol 1.5 mcg p.o. with dialysis. 10. Sensipar 120 mg p.o. daily in the evening. 11. Z-Gen 1 tablet p.o. daily. 12. Zyloprim 100 mg p.o. twice daily. 13. NovoLog subcutaneous on a mild sliding scale per a.c. and at bedtime Accu-Cheks. MEDICATION ALLERGIES: No known medication allergies. REVIEW OF SYSTEMS: Pertinent positive review of systems listed in the HPI. All other review of systems evaluated and negative. DIAGNOSTICS: CMS evaluation shows a sodium of 136, potassium 4.0, BUN of 27, creatinine 5.3, and glucose of 85. He has a troponin I level of less than 0.04 x3 values and a proBNP of 78,113. PHYSICAL EXAMINATION: VITAL SIGNS: Temperature 97.6, pulse 99, respirations 20, blood pressure 101/52, and O2 saturation 93% on 3 L nasal cannula. The patient weighs 139.7 kg. SKIN: [place], warm, and dry. EYES: Sclerae clear. No xanthelasmas. ENT: Oral mucosa is pink and moist. Positive jugular venous distention but no carotid bruits noted. CHEST: Respirations are even and slightly labored. Lung sounds are diminished throughout, and he has a very poor air exchange noted. HEART: Irregular rate and rhythm. Normal S1 and S2. No murmurs, rubs, or gallops. ABDOMEN: Soft, nontender, and obese. MUSCULOSKELETAL: Equal muscle strength to upper and lower extremities bilaterally against resistance. EXTREMITIES: Peripheral pulses palpable. No clubbing or cyanosis noted. Does have 2 to 3+ edema noted to upper and lower extremities. PSYCHIATRIC: Alert and oriented. Mood and affect are appropriate. IMPRESSION AND PLAN: Per Dr. Denisse Rust: 1. New-onset atrial fibrillation with a rapid ventricular response. His rate is moderately controlled now with his Cardizem drip and he is tolerating his heparin drip. 2. Acute on chronic combined systolic and diastolic congestive heart failure PATIENT'S NAME: WANDA IZAIAH C [facility] AGE: 66 Y [address] ROOM: [id number] [place], [place] [address] LOCATION: GPCU ADMIT DATE: 10/04/2016 Consultation DISCHARGE DATE: FAMILY PHYSICIAN: Gildardo Holman MD ATTENDING PHYSICIAN: XIANG PETER with fluid overload. Currently, his fluid is managed with hemodialysis and he needs to have a hemodialysis run again today to keep him euvolemic. 3. End-stage renal disease, on hemodialysis. Awaiting Renal consult. 4. Obstructive sleep apnea with CPAP noncompliance. 5. Obesity. Once again, this is a 66-year-old male admitted with atrial fibrillation with a rapid ventricular response and on his previous admission, we decreased his beta-nancy due to hypotension and bradycardia. We will reiterate his need for compliance with his CPAP use and we will adjust his medications. With his atrial fibrillation rates of 60 to 90 beats per minute, we will start him on Eliquis for an anticoagulant 5 mg p.o. twice daily. Once that is started, we will stop his heparin drip. We will also wean his Cardizem drip and start him on 30 mg of Cardizem p.o. every 6 hours. We will also start amiodarone 150 mg IV bolus now with a drip afterwards per protocol. If necessary we may need to proceed with a transesophageal echocardiogram followed by a direct current cardioversion. His risk of recurrence though with his atrial fibrillation is very high given his comorbidities and noncompliance with obstructive sleep apnea and CPAP use, and obesity. We will continue to monitor, evaluate, and treat as appropriate. Thank you for this consult. Thank you for allowing [facility] to interact in the care of this patient. CEASAR MELISSA APRN FOR MD SARAH GARCÍA/yolanda /[id number] d: 10/05/161958 t: 10/19/165, CONSULTATION REPORT
--- NOTE | ~2016-10-04 | OR ---
PATIENT'S NAME: IZAIAH MUÑOZ [facility] AGE: 66 Y [address] ROOM: [place] [address] LOCATION: GPCU ADMIT DATE: 10/04/2016 OR/Procedure Report DISCHARGE DATE: 10/16/2016 FAMILY PHYSICIAN: Gildardo Holman MD ATTENDING PHYSICIAN: XIANG PETER SURGEON: Aditya Murillo MD SHOE DESIGNER: DATE OF PROCEDURE: CARDIOVERSION NOTE REFERRING PHYSICIAN: Dr. Espinoza. PROCEDURE PERFORMED: Cardioversion. REASON/INDICATION FOR PROCEDURE: Atrial flutter with a rapid ventricular rate, and hypotension during dialysis. DESCRIPTION OF PROCEDURE: The procedure was described to the patient and informed consent was obtained. A TOMEKA was performed which did not show any left atrial appendage thrombus. The defibrillator pads were placed in anterior-posterior position. Sedation was administered by supervisor sample. The patient was given 100 joules of synchronized shock following which his heart rhythm converted from atrial flutter to sinus rhythm. His heart rhythm post cardioversion is sinus rhythm at 78 beats per minute. The patient tolerated the procedure well. No complications were noted. MD FRANK ADAMS/gueral /[id number] d: 10/14/16 1452 t: 11/03/16 1736, OPERATIVE SUMMARY
--- NOTE | ~2016-10-04 | CON ---
PATIENT'S NAME: IZAIAH MUÑOZ [facility] AGE: 66 Y [address] ROOM: [place] [address] LOCATION: GPCU ADMIT DATE: 10/04/2016 Consultation DISCHARGE DATE: FAMILY PHYSICIAN: Gildardo Holman MD ATTENDING PHYSICIAN: XIANG PETER DATE OF CONSULTATION: 10/06/2016 REFERRING PHYSICIAN: Faith Tuttle MD REASON FOR VISIT: Right buttocks ulcer. HISTORY OF PRESENT ILLNESS: This is a 66-year-old male patient who was admitted to [facility] with new-onset atrial fibrillation. He has a significant history of end-stage renal disease, type 2 diabetes mellitus, symptomatic bradycardia, hyperlipidemia, obstructive sleep apnea, and chronic hypoxic respiratory failure with oxygen use. Per his , he has had a previous history of pressure ulcers. His notes that he has been sitting more at home prior to admission to the hospital. The patient is denying buttocks pain. He was not even aware that he has an ulcer. His is unsure of onset. No treatment at home. The nurses have been applying Aloe Aspen moisture barrier to this site in the hospital. The patient does not wear diabetic footwear or support hose. He admits to being tired and fatigued. He denies fevers, chills, or sweats. He denies chest pain. His reports a poor oral intake. PAST MEDICAL HISTORY: 1. End-stage renal disease, on hemodialysis. 2. Anemia of chronic disease. 3. Type 2 diabetes mellitus. 4. Obstructive sleep apnea. 5. Essential hypertension. 6. Morbid obesity. 7. Hypothyroidism. 8. GERD. 9. Chronic constipation. 10. Factor V Leiden deficiency. 11. Diastolic congestive heart failure. PAST SURGICAL HISTORY: Hernia repair, left fistula replacement, right nasal endoscopy with excision of right nasal lesion, left forearm AV fistula, peritoneal dialysis catheter PATIENT'S NAME: IZAIAH MUÑOZ [facility] AGE: 66 Y [address] ROOM: [place] [address] LOCATION: GPCU ADMIT DATE: 10/04/2016 Consultation DISCHARGE DATE: FAMILY PHYSICIAN: Gildardo Holman MD ATTENDING PHYSICIAN: KHALID,OTOOLE A placement with removal, bilateral carpal tunnel release, knee arthroscopy. FAMILY HISTORY: Positive for GA and mother had diabetes. SOCIAL HISTORY: The patient lives with his in [place]. He quit smoking in 1974. He denies alcohol use. ALLERGIES: NO KNOWN DRUG ALLERGIES. CURRENT MEDICATIONS: Please refer to the medication administration record. REVIEW OF SYSTEMS: All are negative except as mentioned above in the HPI. PHYSICAL EXAMINATION: VITAL SIGNS: Temperature 97.7, pulse 70, respirations 18, blood pressure 115/58, pulse oximetry 95% on 4 L. Height 5 feet 9 inches and weight 139.7 kilograms. GENERAL: The patient is sleepy during the interaction. In no acute distress. HEENT: Head; normocephalic, atraumatic. Anicteric sclerae. Nose, midline. Oral mucosa intact. CARDIOVASCULAR: Regular rate and rhythm. ABDOMEN: Obese. EXTREMITIES: +1 pedal pulses at best. +1 lower leg edema. Mycotic toenails. Heels intact. Dryness and brown staining to the lower legs. SKIN: Right lower buttocks ulcer measures 1.0 cm width x 1.0 cm length x 0.2 cm depth. Wound bed is moist pink, with a small amount of yellow slough to the center. Skin peeling with blanchable erythema to the periwound. Scant serosanguineous exudate. Distal to the site, there is a linear skin shearing area noted. Wound bed is moist pink. Periwound has skin rolling. The patient has obvious scarring to buttocks. Red rash with satellite lesions to right groin fold. LABORATORY DATA: White blood cell count 6.0, hemoglobin 10.6, hematocrit 35.2, platelets 128. Sodium 133, potassium 4.3, chloride 99, bicarb 23, BUN 22, creatinine 5.0, glucose 100. Albumin 3.3. ASSESSMENT AND PLAN: Again this is a 66-year-old male patient who is admitted to [facility] with new-onset atrial fibrillation. Wound Care consult to evaluate PATIENT'S NAME: IZAIAH MUÑOZ [facility] AGE: 66 Y [address] ROOM: [place] [address] LOCATION: GPCU ADMIT DATE: 10/04/2016 Consultation DISCHARGE DATE: FAMILY PHYSICIAN: Gildardo Holman MD ATTENDING PHYSICIAN: XIANG PETER and assess a right buttocks ulcer. 1. Right full-thickness stage 3 buttocks pressure ulcer present on admission to the hospital. Area is over the patient's bony buttocks. We will initiate pressure redistribution measures and have nursing turn the patient in bed with a wedge q.2 hours. The patient is on an Isoflex mattress. He is to have an Iris cushion to his chair. He is to be up in a chair no longer than 1 hour at a time. Nursing is to apply Aloe Aspen q.i.d. and p.r.n. incontinence to right buttocks. No need for dressing to the site. Discussed pressure redistribution and prevention measures with . The patient is to keep heels afloat at all times on pillows to prevent heel pressure ulcers. Dietary consult was ordered. 2. Candidiasis intertrigo to right groin fold. We will treat with nystatin topical ointment t.i.d. x10 days. Washcloths are to be applied to groin folds between nystatin applications. 3. Lower leg edema secondary to the end-stage renal disease and diastolic congestive heart failure. Instructed the patient to elevate legs. reports he would not want any Tubigrip, Dat wraps, or compression on his lower legs. Xerosis noted, so we will have nursing apply Aloe Aspen b.i.d. to lower legs. 4. Atrial fibrillation with rapid ventricular response. Cardiology on board. 5. Type 2 diabetes mellitus. The patient on Accu-Cheks and sliding scale insulin. I would like to thank Dr. Tuttle for this consultation. DARRIN WALL APRN FOR MD ZACHARY BAUTISTA/yolanda /[id number] d: 10/07/16 0642 t: 10/27/16 1042, CONSULTATION REPORT
--- NOTE | ~2016-10-04 | ER ---
PATIENT'S NAME: IZAIAH MUÑOZ [facility] AGE: 66 Y [address] ROOM: [place] [address] LOCATION: GPCU ADMIT DATE: 10/04/2016 ER/Outpatient Report DISCHARGE DATE: FAMILY PHYSICIAN: Gildardo Holman MD ATTENDING PHYSICIAN: XIANG PETER CHIEF COMPLAINT: Low blood pressure. HISTORY OF PRESENT ILLNESS: The patient was at dialysis today. He had low blood pressures at that time. They proceeded with dialysis and blood pressures continued to get worse. The patient states that it took off 1 kilo. By report from the dialysis center and ambulance service, multiple blood pressures with systolics in the 50s and 60s were obtained. The patient states he otherwise feels okay, but notes he has not been wearing his CPAP like he have to and has not been sleeping in his bed like he is supposed to either. There is no known history of atrial fibrillation which was unclear initially, but the confirms that the patient has never had atrial fibrillation prior to this episode today. There are no fevers, chills, nausea, vomiting, constipation, diarrhea, or other changes. PAST MEDICAL HISTORY: Documented on the record and reviewed by me. SOCIAL HISTORY: Documented on the record and reviewed by me. MEDICATIONS: Documented on the record and reviewed by me. ALLERGIES: DOCUMENTED ON THE RECORD AND REVIEWED BY ME. PHYSICAL EXAMINATION: VITAL SIGNS: Blood pressure 120/57, right upper extremity; pulse is 97; respiratory rate is 20; temperature 98.1; SpO2 is 96% on 2 L nasal cannula. GENERAL: Age-appropriate male of elderly appearance. No obvious abnormalities. No acute distress. NEUROLOGIC: The patient is awake and alert. GCS is 15. No focal deficits. No asymmetry on exam. HEENT: Normocephalic, atraumatic. Eyes are PERRL. The oropharynx is clear. NECK: Supple. Trachea is midline. CHEST: Heart is tachycardic and irregularly irregular from 80 to 120 beats PATIENT'S NAME: IZAIAH MUÑOZ [facility] AGE: 66 Y [address] ROOM: [place] [address] LOCATION: GPCU ADMIT DATE: 10/04/2016 ER/Outpatient Report DISCHARGE DATE: FAMILY PHYSICIAN: Gildardo Holman MD ATTENDING PHYSICIAN: XIANG PETER per minute. LUNGS: Grossly clear to auscultation bilaterally with no rhonchi, wheezes, or rales. ABDOMEN: Soft, obese, and nontender. No rebound or guarding. BACK: Back is normal to inspection and palpation. EXTREMITIES: Warm, well perfused, as expected for a dialysis patient. SKIN: Clean, dry, and intact. No obvious breakdown. LABORATORY DATA AND X-RAYS: As noted. EKG appears to be atrial fibrillation with a ventricular rate of approximately 100-110, markedly different from prior EKG. Procalcitonin 0.06. CMS: Sodium 133, BUN is 25, creatinine 5.0. LFTs are grossly unremarkable other than alkaline phosphatase of 160. CK-MB and troponins are within appropriate range. CRP is 1.68, free T4 is 1.2. TSH 0.852. CRP is 1.68. INR is 1.11. Lactate is 1.0. IMPRESSION: New onset atrial fibrillation with RVR and intermittent hypotension. EMERGENCY DEPARTMENT COURSE: The patient was seen and evaluated. His blood pressure was much improved upon arrival here. However, he did have one episode where he got much lower in the 80s. The exact onset of the patient's atrial fibrillation is unknown. He has not felt well for a few days. Because of this and the fact that his blood pressure has been unstable, he needs to be in the hospital. Diltiazem drip was initiated. He will be admitted to the Hospitalist Service for further evaluation and treatment of new onset atrial fibrillation with intermittent hypotension as he is not a safe candidate for discharge at this time. MD XIN NEUMANN/gueral /[id number] d: 10/06/16 1143 t: 10/12/16 0922, OUTPATIENT REPORT
--- NOTE | ~2016-10-04 | ECHO ---
Transesophageal Echocardiography Report (TOMEKA) Demographics Patient Name IZAIAH MUÑOZ Date of Study 10/14/2016 Patient Number [id number] Visit Number [id number] Date of 1950 Room Number G6324 Gender Male Number Age 66 year(s) Referring Daniloveronica Champion Sack Department Supervisor Emily España RVT, Physician MD TAMRA Bailey MD Physician Interpreting Lidia Burgess Supervisor [employer] Physician Supervising Ordering Lidia Burgess MD/MLP Physician Nurse Stress Acid Conditioner Conclusions Summary Informed consent obtained. Transesophageal echocardiogram was done under general anesthesia . The estimated left ventricular ejection fraction is 55-60%. There is no LA or LA appendage thrombus or spontaneous contrast. Mildly dilated right ventricle. Right ventricular systolic function appears reduced. Negative bubble study. Normal mitral valve structure and function. Trivial mitral regurgitation by color Doppler. The aortic valve is mildly sclerotic. Normal appearing tricuspid valve. Mild tricuspid regurgitation by color Doppler. Normal pulmonic valve structure and function. Trivial pericardial effusion. There is minimal plaque seen in the ascending aorta. Procedure Type of Study TOMEKA procedure Procedure Date Date: 10/14/2016 Start: 01:23 PM Study Location: Inpatient Portable Technical Quality: Adequate visualization Indications:Atrial fibrillation. Appropriate Use Criteria: 8 Patient Status: Routine Contrast Medium: Bubble Study. Rhythm: Atrial fibrillation HR: 96 bpm BP: 109/49 mmHg Allergies - No known allergies. Findings Left Ventricle The left ventricle is normal in size . Right Ventricle Mildly dilated right ventricle. Right ventricular systolic function appears reduced. Left Atrium There is no LA or LA appendage thrombus or spontaneous contrast. Right Atrium Negative bubble study. Mitral Valve Normal mitral valve structure and function. Trivial mitral regurgitation by color Doppler. Aortic Valve The aortic valve is mildly sclerotic. Tricuspid Valve Normal appearing tricuspid valve. Mild tricuspid regurgitation by color Doppler. Pulmonic Valve Normal pulmonic valve structure and function. Pericardial Effusion Trivial pericardial effusion. Miscellaneous There is minimal plaque seen in the ascending aorta. Contractility Score LV regional wall motion:(0-Non visualized 1-Normal 2-Hypokinesis 3-Akinesis 4-Dyskinesis 5-Aneurysm) Signature dtt: JESS GLYNN dtd: 10/14/16 1323 Physician Self Edit
--- NOTE | ~2016-10-04 | DS ---
PATIENT'S NAME: IZAIAH MUÑOZ [facility] AGE: 66 Y [address] ROOM: G6324 [place], [place] [address] LOCATION: GPCU ADMIT DATE: 10/04/2016 Discharge Summary DISCHARGE DATE: 10/16/2016 FAMILY PHYSICIAN: Gildardo Holman MD ATTENDING PHYSICIAN: Darren Auguste PRINCIPAL DIAGNOSES: 1. Atrial fibrillation with rapid ventricular rate, status post transesophageal echocardiography and direct cardioversion to sinus rhythm. 2. Type 2 diabetes mellitus. 3. Morbid obesity. 4. Chronic hypoxic respiratory failure. 5. Hypertension. 6. End-stage renal disease. HOSPITAL COURSE: A 66-year-old gentleman was admitted from the Dialysis Center with hypertension. In the emergency department, he was found to be in atrial fibrillation with rapid ventricular rate. The patient was admitted to the hospital and started on heparin drip, which was later transitioned to Eliquis 2.5 mg p.o. b.i.d. per Nephrology as well as dosing based on renal function. Cardiology was consulted and TOMEKA was done with a documentation of no obvious thrombus and the patient was cardioverted with 120 joules of shock. The patient remained in sinus rhythm after that and no other significant events happened in the course of the hospitalization. He was started on amiodarone 400 mg p.o. b.i.d. per Cardiology, which was later changed to 200 mg p.o. b.i.d. The patient received his dialysis in the hospital. The patient is being discharged today. The patient will need dialysis tomorrow. The states that she is okay to take the patient home with Home Healthcare. They will contact Dialysis Center tomorrow morning for a short run and the regular dialysis on Monday, , and Monday. The patient is going to follow up with primary care physician in 1 week as well as Dr. Murillo in 1 week. DISCHARGE MEDICATIONS: No medication changes were made on the discharge. Two new medications were added to his discharge medication: 1. Amiodarone 200 mg p.o. b.i.d. 2. Eliquis 2.5 mg p.o. b.i.d. The rest of the discharge medication included: 1. Allopurinol 100 mg p.o. twice daily. 2. Cinacalcet 30 mg p.o. every evening at 2100 hours. 3. Melatonin 20 mg p.o. every night at bedtime. 4. Atorvastatin 40 mg everyday. 5. Gemfibrozil 600 mg twice daily. 6. Calcitriol 1.5 mg p.o. 3 times daily p.r.n. PATIENT'S NAME: IZAIAH MUÑOZ [facility] AGE: 66 Y [address] ROOM: [place] [address] LOCATION: [facility] ADMIT DATE: 10/04/2016 Discharge Summary DISCHARGE DATE: 10/16/2016 FAMILY PHYSICIAN: Gildardo Holman MD ATTENDING PHYSICIAN: Darren Auguste 7. PhosLo 1334 mg p.o. 3 times daily with meals. 8. PhosLo 667 mg p.o. twice daily p.r.n. 9. Cinacalcet 90 mg p.o. every evening at 2100 hours. 10. Levothyroxine 150 mcg p.o. daily. 11. Levothyroxine 200 mcg p.o. everyday before meals. 12. Metoprolol 12.5 mg p.o. twice daily. 13. Midodrine 10 mg everyday. 14. Sevelamer 800 mg p.o. twice daily p.r.n. 15. Sevelamer 3200 mg p.o. 3 times daily with meals. 16. Ranitidine 75 mg p.o. twice daily. 17. Vitamin B complex. 18. Continuous positive airway pressure. 19. Gabapentin 300 mg p.o. every night at bedtime. 20. Oxycodone 5/325 p.o. 4 times daily p.r.n. 21. Januvia 25 mg p.o. everyday before breakfast. DIET: Diabetic diet. ACTIVITY: As tolerated. HEMODYNAMICS ON DISCHARGE: Stable. MD JENNIFER LEUNG/yolanda /[id number] d: 10/17/16 0337 t: 10/24/16 1510, DISCHARGE SUMMARY
--- NOTE | ~2016-10-04 | CON ---
PATIENT'S NAME: IZAIAH MUÑOZ [facility] AGE: 66 Y [address] ROOM: G6324 [place], [place] [address] LOCATION: GPCU ADMIT DATE: 10/04/2016 Consultation DISCHARGE DATE: FAMILY PHYSICIAN: Gildardo Holamn MD ATTENDING PHYSICIAN: XIANG PETER DATE OF CONSULTATION: 10/05/2016 REFERRING PHYSICIAN: Eric Aguero MD [facility] Nephrology Consultation REASON FOR CONSULTATION: End-stage renal disease, on hemodialysis therapy, volume overload. HISTORY OF PRESENT ILLNESS: This is a 66-year-old male patient, who is well known to Dr. Isabel and myself, who presented to outpatient hemodialysis yesterday and was about [address] with his routine dialysis, when he began having tachycardia and hypotension. The patient does also take a fair amount of gabapentin orally as an outpatient and was also having some slowed cognition and slow to respond. He does have a longstanding history of end-stage renal disease secondary to diabetes and is on hemodialysis on Monday, , and Monday. Over the course of the past 4 to 6 weeks, we have been having difficulties with the patient's fluid gains interdialysis. He has been averaging 4 to 6 L in- between dialysis appointments and we have been unsuccessful with removing all of this fluid due to the patient's hypotension. He has been started on midodrine as an outpatient, but this has still been very difficult. Therefore due to the patient's history of end-stage renal disease, on hemodialysis on Monday, , and Monday with volume overload noted on chest x-ray, Dr. Crews has been asked to consult on the patient for a possible dialysis today. PAST MEDICAL HISTORY: As listed above includin. End-stage renal disease on hemodialysis Monday, , and Monday. 2. Anemia of chronic kidney disease. 3. Hypertension. 4. Diabetes. 5. Obstructive sleep apnea. Noncompliant with CPAP therapy. 6. Morbid obesity. 7. Hypothyroidism. 8. GERD. 9. Chronic constipation. 10. Factor V Leiden deficiency, not on anticoagulation. PAST SURGICAL HISTORY: 1. Left fistula placement. 2. Hernia repair. 3. Right nasal endoscopy with excision of a right nasal lesion. 4. Left forearm primary radiocephalic AV fistula placement. 5. Peritoneal dialysis catheter placement and removal. 6. Bilateral carpal tunnel release. 7. Knee arthroscopy.PATIENT'S NAME: IZAIAH MUÑOZ [facility] AGE: 66 Y [address] ROOM: G6324 [place], [place] [address] LOCATION: GPCU ADMIT DATE: 10/04/2016 Consultation DISCHARGE DATE: FAMILY PHYSICIAN: Gildardo Holman MD ATTENDING PHYSICIAN: XIANG PETER ALLERGIES: NONE TO MEDICATION. CURRENT HOME MEDICATIONS: Include: 1. Allopurinol 100 mg twice a day. 2. Atorvastatin 40 mg daily at bedtime. 3. Calcitriol 1.5 mcg p.o. with dialysis on Monday, , and Monday. 4. Calcium acetate 667 mg p.o. p.r.n. with snacks as well as 667 mg 2 tablets p.o. t.i.d. with meals. 5. Sensipar 120 mg daily. 6. Gabapentin 300 mg daily at bedtime. Currently on hold. 7. Lopid 600 mg twice a day. 8. Hydrocodone 1 tablet p.o. q.i.d. p.r.n. pain. 9. Levothyroxine 350 mcg daily. 10. Melatonin 10 mg daily at bedtime. Currently held. 11. Actos 30 mg daily at bedtime. 12. Zantac 150 mg daily. 13. Renvela 800 mg p.o. with snacks and 3200 mg p.o. t.i.d. with meals. 14. Vitamin B complex 1 tablet daily. SOCIAL HISTORY: The patient does live at home with his . 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 No history of tobacco or alcohol use. FAMILY HISTORY: Reviewed and is positive for history of diabetes and hypertension. There is no history of renal disease or dialysis. REVIEW OF SYSTEMS: Please see HPI: GENERAL: The patient appears somnolent. No fever, chills, or night sweats. EYES: No double vision or blurred vision. NOSE: No epistaxis or rhinorrhea. MOUTH: No gingival bleeding. THROAT: No sore throat, hoarseness, or cough. RESPIRATORY: Denies wheezing or hemoptysis. CARDIOVASCULAR: Complains of increased shortness of breath with activity. Denies PND or orthopnea. GASTROINTESTINAL: Denies nausea, vomiting, or diarrhea. MUSCULOSKELETAL: Denies any new arthralgias. NEUROLOGICAL: Denies any numbness or tingling in the upper or lower extremities. HEMATOLOGICAL: Denies bruising or easy bleeding.PATIENT'S NAME: IZAIAH MUÑOZ [facility] AGE: 66 Y [address] ROOM: [place] [address] LOCATION: GPCU ADMIT DATE: 10/04/2016 Consultation DISCHARGE DATE: FAMILY PHYSICIAN: Gildardo Holman MD ATTENDING PHYSICIAN: XIANG PETER PHYSICAL EXAMINATION: VITAL SIGNS: Blood pressure is 110/90, pulse is 121, respirations 16, temperature is 98.2, and sats 92% on 2 L. GENERAL: On exam, the patient is somnolent. He does arouse with calling. He does know my name. He is alert and oriented x3. However, drowsy. HEENT: Head; normocephalic and atraumatic. Eyes; pupils are equal and react briskly to light and accommodation. EOMs are intact. Nose, midline. Mouth; no gingival bleeding. RESPIRATORY: Lung sounds are diminished in the bases bilaterally. The patient is on 2 L nasal cannula. CARDIOVASCULAR: Irregularly irregular rate and rhythm with apical heart rate of 121 beats per minute. Unable to appreciate any murmurs, rubs, or thrills. ABDOMEN: Obese, bowel sounds positive. EXTREMITIES: Show 1 to 2+ lower extremity edema bilaterally. LABORATORY DATA AND IMAGING STUDIES: EKG done in the emergency department did show atrial fibrillation with RVR. Chest x-ray showed bilateral pleural effusions with vascular congestion. CBC showed a hemoglobin of 10.3, WBCs of 5.6, and platelets of 161,000. BUN and creatinine were 25 and 5.0, sodium 133, potassium 3.7, chloride 98, bicarbonate 26, calcium 8.8, alkaline phosphatase is 160, and INR 1.1. CRP is 160. ASSESSMENT AND PLAN: 1. Atrial fibrillation with rapid ventricular response. The patient has been on Cardizem overnight and his heart rates are in the 110s. At this time, they are switching him to amiodarone drip. The patient's blood pressures have improved to 130 systolic. 2. End-stage renal disease, on hemodialysis therapy. The patient does appear to be volume overloaded. We are going to have the patient undergo hemodialysis today. We will obtain the patient's outpatient clinical record and ultrafiltrate him as warranted. We will continue to monitor his blood pressures throughout therapy. 3. Type 2 diabetes mellitus. Sliding scale insulin. 4. Hyperlipidemia. 5. Hypothyroidism. 6. Obstructive sleep apnea. Noncompliant with CPAP therapy. This patient has been seen and assessed by Dr. Crews. His care is being conducted in consultation with Dr. Crews as well as Shelia Siegel DNP, LICENSED INVESTMENT SALES ASSISTANT. We will plan further recommendations as they are forthcoming. SHELIA SIEGEL DNP, [facility] HUGOLYDIA CREWS MD ENS/modl /[id number] d: 10/05/162152 t: 10/22/16 1311, CONSULTATION REPORT
[~2016-10-04 15:01] MED LIST changes: -B COMPLEX1 EACH PO; -CORDARONE,PACE200 MG PO; -ELIQUIS2.5 MG PO; -LANOXIN (DIGI125 MCG PO; -LEVAQUIN 250 M250 MG PO; -LEXAPRO20 MG PO; -LOPRESSOR25 MG PO; -MILK OF MA400 MG/5 M PO; -MYCOSTATIN OINT30 GM TOP; -NEURONTIN100 MG PO; -REMERON15 MG PO
[2016-10-04 16:17] LABS: INR - (THERAPEUTIC) 1.11 (0.92-1.07); PROTIME 11.7 SECONDS (9.8-11.4); PTT 33 SECONDS (25-32)
[2016-10-04 16:30] LABS: ALBUMIN 3.3 gm/dL (3.5-5.0); ALK PHOS 160 IU/L (33-138); ALT 22 IU/L (12-78); ANION GAP 12.7 (10.0-19.0); AST 23 IU/L (10-40); BLOOD UREA NITROGEN 25 mg/dL (6-24); CHLORIDE 98 mMol/L (96-110); CO2 26 mMol/L (22-32); POTASSIUM 3.7 mMol/L (3.7-5.1); SODIUM 133 mMol/L (135-145); TOTAL BILIRUBIN 0.4 mg/dL (0.0-1.5)
[2016-10-04 16:31] LABS: ESTIMATED GFR (MDRD EQUATION) 12
[2016-10-04 17:02] LABS: HEMATOCRIT 34.3 % (37.0-53.0); HEMOGLOBIN 10.3 g/dL (11.0-16.0); MCH 31.7 pg (27.0-34.0); MCV 105.5 fl (83.0-98.0); MPV 10.6 fl (9.4-12.4); PLATELET COUNT 161 K/uL (150-450); RBC 3.25 M/uL (3.50-5.50); RDW-CV 17.2 % (11.9-14.6); WBC 5.6 K/uL (4.0-11.0)
[2016-10-04 17:41] LABS: ABSOLUTE NEUTROPHIL CT (ANC) 3.8 K/uL (1.4-9.0); BANDED NEUTROPHIL # 0.7 K/uL (0.0-0.1); BANDED NEUTROPHILS % 12 %; LYMPHOCYTE # 0.7 K/uL (0.8-4.0); LYMPHOCYTE % 13 %; MONOCYTE # 0.8 K/uL (0.0-1.0); SEGMENTED NEUTROPHIL # 3.1 K/uL (1.4-9.0); SEGMENTED NEUTROPHIL % 56 %
[2016-10-04] MEDS ORDERED: LIPITOR40 MG PO (19:53)
[2016-10-04] MEDS ORDERED: LOPRESSOR25 MG PO (19:55)
--- NOTE | 2016-10-04 20:01 | NUR ---
Pt is 66 yo male admitted from [facility] via Ambulance to the ER. patient had new onset of AFIB. patient's states patient has been more tired and confused the past week, but more increased on yesterday. he went to get his dialysis today and is sent to ER for evaluation. patient is lethargic. doesn't want to awaken to answer questions or listen to any education given. IV is infusing in right upper arm without erythema or edema but bruising noted at site. Education is given to patient's and to him as he awakens, but dozes quickly. yellow socks are on bilat. patient refuses pneumatics. wifes states he did not tolerate them very well in the past. Call light is within reach. denies needs at this time. report is given to SILVIO Miller.
[2016-10-05 03:44] LABS: HEMATOCRIT 33.9 % (37.0-53.0); HEMOGLOBIN 10.1 g/dL (11.0-16.0); MCH 31.8 pg (27.0-34.0); MCHC 29.8 gm/dL (32.0-36.5); MCV 106.6 fl (83.0-98.0); MPV 10.6 fl (9.4-12.4); PLATELET COUNT 152 K/uL (150-450); RBC 3.18 M/uL (3.50-5.50); RDW-CV 17.7 % (11.9-14.6); WBC 5.2 K/uL (4.0-11.0)
[2016-10-05 03:52] LABS: CALCIUM 7.8 mg/dL (8.5-10.5)
[2016-10-05 03:54] LABS: CREATININE 5.3 mg/dL (0.6-1.3)
--- NOTE | 2016-10-05 04:58 | NUR ---
Significant Event: Patient very lethargic, d/o to date and at times place, patient speech is slow and mumbled unable to complete sentences without falling back asleep, has become more alert throughout night, denies pain, titrating Cardizem gtt to keep HR <100 and SBP >90, has been off since 299 for low SBP, blood pressures have ranged from 70s/30s- 110s/40s, 2-3L O2, patient refused his cpap, Heparin gtt at 1100 units/hr, next ptthp at 1000, no coverage needed for accucheck, fistula to L)arm has good bruit & thrill Follow up: nephrology and cardiology consults today
[2016-10-05 05:36] LABS: ABSOLUTE NEUTROPHIL CT (ANC) 3.7 K/uL (1.4-9.0); BANDED NEUTROPHIL # 1.2 K/uL (0.0-0.1); BANDED NEUTROPHILS % 24 %; LYMPHOCYTE # 0.6 K/uL (0.8-4.0); LYMPHOCYTE % 11 %; MONOCYTE # 0.4 K/uL (0.0-1.0); SEGMENTED NEUTROPHIL # 2.5 K/uL (1.4-9.0); SEGMENTED NEUTROPHIL % 48 %
--- NOTE | 2016-10-05 15:25 | NUR ---
Introduced self and role of care management to pt. HE lives with in [place]. She still works and does take fmla leave when needed. HE does dialysis in [facility] at 1100 and he has friends that take him and when he is feeling better he drives himself. He does use a nilay walker when up and c with [facility] has been coming to his house for continued therapies. He states his sets up his meds and he has been good at taking his meds. I discussed dc plans and he plans home with h[facility]. I did mention skilled or swingbed if needed and his plan is home.
--- NOTE | 2016-10-05 17:27 | NUR ---
Significant Event: Drowsy at beginning of the shift but more alert and oriented later. Denies pain other than the sore to his buttocks, WOC to see tomorrow. REmains in afib rates anywhere from 70s-120s. C/O SOB. 2 hour dialysis run today with 1.8 off. Plan for full run tomorrow morning. Amiodarone gtt continues at 0.5mg/min and completed at 1000 10/06. Up with a 1 assist and nilay walker. at bedside. Follow up:
--- NOTE | 2016-10-06 04:46 | NUR ---
Significant Event: HEART RATES 90-120S. BPS STABLE 100S-130'S. PT ON CPAP AND NC THIS SHIFT. VERY RESTLESS, CONSTANTLY WANTING TO GO BACK AND FORTH BETWEEN BED AND THE CHAIR. PT ON CPAP FOR VERY SHORT PERIODS OF TIME SAYING THAT IT MADE HIM FEEL LIKE HE WAS SUFFOCATING. PT ENDED UP WEARING 4L PER NC THE REMAINDER OF THE NIGHT. AT BEDSIDE. NO URINE OUTPUT THIS SHIFT. TO HAVE DIALYSIS AGAIN TODAY. PT WOULD BENEFIT FROM SOMETHING TO HELP HIM RELAX AT NIGHT. Follow up:
[2016-10-06 06:39] LABS: HEMATOCRIT 35.2 % (37.0-53.0); HEMOGLOBIN 10.6 g/dL (11.0-16.0); MCH 32.1 pg (27.0-34.0); MCHC 30.1 gm/dL (32.0-36.5); MCV 106.7 fl (83.0-98.0); MPV 10.7 fl (9.4-12.4); PLATELET COUNT 128 K/uL (150-450); RDW-CV 17.6 % (11.9-14.6)
[2016-10-06 06:51] LABS: ALBUMIN 3.3 gm/dL (3.5-5.0); ANION GAP 15.3 (10.0-19.0); CALCIUM 7.5 mg/dL (8.5-10.5); PHOSPHORUS 3.9 mg/dL (2.5-4.9); POTASSIUM 4.3 mMol/L (3.7-5.1)
[2016-10-06 08:02] LABS: ABSOLUTE NEUTROPHIL CT (ANC) 4.4 K/uL (1.4-9.0); BANDED NEUTROPHIL # 0.5 K/uL (0.0-0.1); BANDED NEUTROPHILS % 8 %; LYMPHOCYTE # 0.7 K/uL (0.8-4.0); LYMPHOCYTE % 11 %; MONOCYTE # 0.6 K/uL (0.0-1.0); SEGMENTED NEUTROPHIL # 3.9 K/uL (1.4-9.0); SEGMENTED NEUTROPHIL % 65 %
--- NOTE | 2016-10-06 12:07 | NUR ---
PATIENT IS OFF FLOOR FOR DIALYSIS. WILL ASSESS WHEN PATIENT RETURNS
--- NOTE | 2016-10-06 18:04 | NUR ---
PATIENT WENT TO DIALYSIS TODAY. TOOK 3.8 LITERS OFF IN DIALYSIS. DIALYSIS NURSES GAVE HIM BENADRYL DURING DIALYSIS. PATIENT IS SLEEPY SINCE COMING BACK FROM DIALYSIS. HE DOES WAKE UP WHEN TALKED TO BUT FALLS BACK TO SLEEP QUICKLY.
--- NOTE | 2016-10-07 13:29 | NUR ---
Social visit with today and introduced myself and role of care management. I discussed dc plans and if the plan was home or if I needed to look into a skilled facility or swingbed. She states no the plan will be for home at least that is what she is planning. He did get up with therapy today and did ok. She does want to resume hhc on discharge as well. I did update nursing. Will continue to follow.
--- NOTE | 2016-10-07 13:53 | NUR ---
A-CONSULT RECEIVED D/T STAGE III PU TO R)BUTTOCKS ON HEMODIALYSIS. WENT TO DIALYSIS YESTERDAY AND 1.7 L WAS REMOVED. TO DIALYSIS TODAY AND 3.8 L WAS REMOVED. CBW: 138.0 KG. ADMIT WT: 139.7 KG. HT: 69 IN. BMI: 45.5 LABS: NA 133, K+ 4.3,G GRAYSON 100, BUN 22, WEIGHT INSPECTOR 5.0, ALB 3.3, CRP 1.68 MEDS: ROCALTROL, ALBUMIN, ELIQUIS, LIPITOR, Z-GEN, RENVELA, PHOSLO, PERCOCET, SENSIPAR, NOVOLOB (MILD SS). DIET RX: CARDIAC. PO INTAKE REFUSAL-75%. EST NUTR NEEDS: [id number] KCALS (30-35 KCALS/KG IBW) 88-110 GM PROTEIN (1.2-1.5 GM/KG IBW) FLUID PER D-AT NUTRITION RISK W/INCREASED NUTRIENT NEEDS R/T ALT SKIN INTEGRITY, ALT RENAL FXN AEB STAGE III PU TO R)BUTTOCKS, HD. I-START ENSURE ENLIVE TID W/MEALS TO PROVIDE ADDITIONAL NUTRIENTS M/E-GOAL: PO INTAKE >/=50% BY NEXT F/U 1)F/U PO INTAKE, SUPPLEMENT, SKIN, LABS, AND POC IN 3-5 DAYS 2)ASSIST NEEDED
--- NOTE | 2016-10-07 17:19 | NUR ---
PATIENT WENT TO DIALYSIS TODAY. PLANS ON GOING AGAIN TOMORROW TO DIALYSIS. THEY TOOK OFF 3700ML TODAY. PATIENT HAS A SHOWER TODAY.
[2016-10-08 05:15] LABS: ALBUMIN 3.7 gm/dL (3.5-5.0); ANION GAP 12.8 (10.0-19.0); CREATININE 3.8 mg/dL (0.6-1.3); MAGNESIUM 2.1 mg/dL (1.8-2.6); POTASSIUM 3.8 mMol/L (3.7-5.1)
--- NOTE | 2016-10-08 08:01 | NUR ---
Significant Event: AT START OF SHIFT, PT WAS VERY DROWSY AND WAS PICKING AT HIS CLOTHES AND PULLING OFF LEADS. HE WAS NOT ABLE TO BE REASONED WITH. HE JUST KEPT DOING WHAT HE WAS TOLD NOT TO DO. AFTER HE WOKE UP FROM GETTING HS MEDS, HE WAS RESTLESS THE REST OF THE NIGHT. HE WAS SITTING ON THE SIDE, UP IN THE CHAIR AND THEN LAYING BACK DOWN MULTIPLE TIMES. HE DID C/O SOB WHEN LAYING DOWN BUT HIS O2 LEVEL WAS IN THE MID 90s AND HIS LUNGS WERE CLEAR/DIM. HE WAS TITRATED UP TO 5L AND THEN BACK TO 4 BY CAPSULE MACHINE OPERATOR. HE DID NOT SLEEP WELL. HE TRIED TO WEAR HIS CPAP WHEN ASLEEP BUT HE DID NOT SLEEP FOR MORE THAN 30MIN AT A TIME. HIS REMAINED AT BEDSIDE BUT SHE BECAME FRUSTRATED BECAUSE THE PT WAS SO RESTLESS AND NEEDING SOMETHING VERY FREQUENTLY. Follow up:
--- NOTE | 2016-10-08 19:21 | NUR ---
PATIENT HAD DIALYSIS TODAY. HR 90'S-120. CARDIOLOGY ORDERED TO D/C PO CARDIZEM AND START IV DIGOXIN X4 DOSES. AT BEDSIDE.
--- NOTE | 2016-10-09 03:52 | NUR ---
Significant Event:pt alert and orieted at times however can be forgetful. pt sleepy at start of shift however became agitated as the evening went on. pt complained of sob, o2 increased and pt refused to wear bipap,order for prn xanax q8h was given and pt started to calm down. pt digoxin held due to pulses in the 50-60's, pt became hypotensive during the night as well, maps remained above 65, bp checked in bilateral lower legs per order.blood pressure taken in right lower arm due to fistula in left arm. digoxin order is now to hold if heart rate less than 80. pt has been back and forth between afib and a flutter. denies pain when asked, denies dizziness. in room during night. pt had dialysis yesterday with approx 350cc taken off.manual pressure was applied to fistula site due to bleeding small amounts. no noted complications since manual pressure. uses call light approp. Follow up:
[2016-10-09 06:27] LABS: ALBUMIN 3.5 gm/dL (3.5-5.0); CALCIUM 7.8 mg/dL (8.5-10.5); CREATININE 3.5 mg/dL (0.6-1.3); MAGNESIUM 2.1 mg/dL (1.8-2.6)
--- NOTE | 2016-10-09 17:16 | NUR ---
PATIENT HAS NOT HAD MUCH AMBITION TODAY. HE HAS BEEN UP ON THE SIDE OF THE BED A FEW TIMES WITH BUT DOES NOT LIKE TO DO MUCH FOR HIMSELF. NURSING HAS ENCOURAGED HIM TO INCREASE HIS ACTIVITY WITH VERY LITTLE RESPONSE.
--- NOTE | 2016-10-10 04:06 | NUR ---
Significant Event:pt alert however confused and forgetful. pt continues to be slightly anxious awake on and off during night. pt lopressor at 2200 held due to low bp. is to be held if sbp less then 100. prn xanax at hs. takes medicationw whole with no complications noted. pt like to sit up on side of bed,continues to have edema to lower legs. pt continues to be on o2 per nasal cannula at 5L. pt needs lots of encouragment to help with cares. pt uses call light approp. Follow up:
[2016-10-10 04:33] LABS: ALBUMIN 3.3 gm/dL (3.5-5.0); ANION GAP 12.1 (10.0-19.0); CALCIUM 8.2 mg/dL (8.5-10.5); MAGNESIUM 2.2 mg/dL (1.8-2.6); PHOSPHORUS 2.2 mg/dL (2.5-4.9); POTASSIUM 4.1 mMol/L (3.7-5.1)
[2016-10-10 04:47] LABS: CREATININE 4.6 mg/dL (0.6-1.3)
--- NOTE | 2016-10-10 16:27 | NUR ---
Significant Event: Patient lethargic and disoriented to day and year. Was off floor to dialysis today from 0900 to 1500. Problems with low blood pressures. To get Proamatine prior to dialysis. 2L removed. Left AV fistula. Problems with site oozing upon returning to floor. Held pressure for 20 minutes. SBP 80-100's. MD's aware. Continues in Aflutter. Held PO metoprolol today due to SBP. Low blood sugar of 70 this afternoon. Able to correct with PO intake. ALVA CABELLO. Open sores to buttocks. Turn q2h and PRN Follow up: Continue as per plan of care. Monitor blood pressures closely.
--- NOTE | 2016-10-10 17:43 | NUR ---
Nursing note: Patient with left lower arm AV fistua oozing at 1600 and pressure held for 20 minutes. take off worker notified and came to assess the patient. Again at 1700 patient's fistula began oozing and SBP 70-80's. Dr. Tuttle and Shelia Siegel APRN notified. Telemarketing Representative and supervisor color making notified. Held pressure for 45 minutes. take off worker applied surgicel to AV fistula site. Dr. Tuttle ordered 5% Albumin to be infused as a bolus. Nephrology notified. Also checking H&H. Patient denies being symptomatic. at bedside. Blood pressure improving with Albumin infusing. Will continue close monitoring. Oumar ANGUIANO 10/10/16
[2016-10-10 17:47] LABS: HEMATOCRIT 33.2 % (37.0-53.0)
--- NOTE | 2016-10-11 04:39 | NUR ---
Significant Event: VSS, PT AFEBRILE. CONTINUES ON 4L 02, PT REFUSES TO KEEP CPAP ON FOR MORE THAN A FEW MINUTES. PT TOOK 02 OFF SEVERAL TIMES DURING THE NIGHT, SATS WERE LOW 82%. PT UP AND DOWN CONSTANTLY THROUGH THE NIGHT, DID NOT SLEEP MUCH. 2BMS THIS SHIFT. BRUIT AND THRILL PRESENT IN FISTULA, SOME SLIGHT OOZING NOTED THIS MORNING. BLOOD PRESSURES WERE LOW AT BEGINNING OF THE SHIFT FROM 80'S-100'S. WAS ABLE TO GIVE NIGHT LOPRESSOR AND BPS CAME DOWN AGAIN. LAST BP AT AM ASSESSMENT WAS 125/56. Follow up:
[2016-10-11 05:24] LABS: ALBUMIN 3.5 gm/dL (3.5-5.0); ANION GAP 13.3 (10.0-19.0); CALCIUM 7.8 mg/dL (8.5-10.5); MAGNESIUM 2.2 mg/dL (1.8-2.6); PHOSPHORUS 2.2 mg/dL (2.5-4.9); POTASSIUM 4.3 mMol/L (3.7-5.1)
[2016-10-11 05:27] LABS: CREATININE 4.1 mg/dL (0.6-1.3)
--- NOTE | 2016-10-11 11:41 | NUR ---
Social visit with today and she stated he had a rough day yesterday but doing better today. He was to be getting up with and I did encourage him and to he needs to participate and work with therapy if he wants to go home and states that is the plan. Pt is able to move self in bed and to side of bed. does tell me he has a lift chair at home and also is on continuous oxygen since last admission. Will continue to follow.
--- NOTE | 2016-10-11 14:06 | NUR ---
A-NUTRITION F/U VISITED W/PT AND PT'S ABOUT SUPPLEMENTS. PT IS DRINKING THE CHOCOLATE ENSURE, BUT DOES NOT LIKE THE OTHER FLAVORS. APPETITE IS FAIR. HEMODIALYSIS YESTERDAY. STAGE III PU TO R)BUTTOCKS LABS: NA 132, K+ 4.3, GLU 80, BUN 20, PATCH PRESS OPERATOR 4.1, ALB 3.5 MEDS: IV BUMEX (10/09) WT DOWN FROM ADMIT WT; PT HAD BEEN HAVING HD AND BEING DIURESED DIET RX: CARDIAC W/ENSURE ENLIVE TID. PO INTAKE REFUSALS-1005; AVG IS 59% D-AT NUTRITION RISK W/INCREASED NUTRIENT NEEDS R/T ALTERED SKIN INTEGRITY, ALTERED RENAL FXN AEB STAGE III PU TO R)BUTTOCKS, HD. I-CHANGE ENSURE ENLIVE TID TO CHOCOLATE ONLY, PER PT REQUEST M/E-GOAL: PO INTAKE 50-75% BY NEXT F/U 1)F/U PO INTAKE, SUPPLEMENT, SKIN, AND POC IN 3-5 DAYS 2)ASSIST NEEDED
--- NOTE | 2016-10-11 16:36 | NUR ---
Significant Event: Patient alert. Vital signs stable on 4L via nasal cannula. Up with 1-2 assist. Fistula has oozed throughout shift, new dressings applied as needed. Patient will have dialysis tomorrow. Psych consult due to feeling down and depressed. Has rested during day. Pleasant and cooperative with cares. Follow up:
--- NOTE | 2016-10-12 05:10 | NUR ---
Significant Event:pt alert and oriented. pt depressed, does not talk much, is up and down most of night, request prn xanax at 0230. pt blood pressure stable at start of shift however did lower during night to 99/45. pt pulse stable 80-90 most of night. continues to be in aflutter. pt needs lot of encouragment to do any activity, refuses to walk to be the bathroom. uses bedside commode, surgiseal applied to fistula site to stop bleeding. has bed stable since. pt uses call light as needed. Follow up:
[2016-10-12 06:37] LABS: HEMATOCRIT 33.8 % (37.0-53.0); HEMOGLOBIN 10.1 g/dL (11.0-16.0)
[2016-10-12 06:53] LABS: ALBUMIN 3.7 gm/dL (3.5-5.0); ANION GAP 12.5 (10.0-19.0); CALCIUM 8.1 mg/dL (8.5-10.5); MAGNESIUM 2.3 mg/dL (1.8-2.6); PHOSPHORUS 2.5 mg/dL (2.5-4.9); POTASSIUM 4.5 mMol/L (3.7-5.1)
[2016-10-12 06:54] LABS: CREATININE 5.4 mg/dL (0.6-1.3)
--- NOTE | 2016-10-12 19:40 | NUR ---
Significant Event: SBP 88-130 TODAY WITH MIDODRINE GIVEN PRIOR TO DIALYSIS AND DURING, NEW ORDER FOR DIALYSIS DAYS ON . NO BLEEDING/OOZING TO FISTULA OF LEFT LOWER ARM. GAUZE AND TAPE C/D/I. OTHER VSS WITH O2 REMAINING AT 4L PER NC. ACHS ACCUCHECKS WITH ALL SUGARS <100. AMBULATES SBA WITH GAIT BELT. PIV TO R) UPPER ARM SL'D. CARE MANAGEMENT TO TALK TO AND PATIENT ABOUT SWB. Follow up: NEED TO VERIFY IF RITALIN 5MG PO TO BE GIVEN AT [address] GLYNN. NOTE ON FRONT OF CHART. AT BEDSIDE.
[2016-10-13 04:08] LABS: ALBUMIN 3.7 gm/dL (3.5-5.0); ANION GAP 12.4 (10.0-19.0); CALCIUM 7.9 mg/dL (8.5-10.5); MAGNESIUM 2.2 mg/dL (1.8-2.6); POTASSIUM 4.4 mMol/L (3.7-5.1)
[2016-10-13 04:09] LABS: CREATININE 4.2 mg/dL (0.6-1.3); PHOSPHORUS 1.9 mg/dL (2.5-4.9)
--- NOTE | 2016-10-13 05:15 | NUR ---
Significant Event:A/Ox3. HR 60-90 Aflutter. Afebrile. Weaned to 3L/NC throughout the night, patient attempted to wear home cpap but only kept it on for maybe 10 minutes. Restless and anxious all night gave PRN dose of xanax at 2322 with minimal relief. Percocet given at 0300 per patient request. SBP 118-111-88 all MAPS >60 and patient asymptomatic. Drsg to L)FA fistula changed x1 surgiseal applied with gauze and paper tape. Currently only shadow drainage noted. Transfers SBA. Follow up:Continue with POC, CM to help with placement of some sort.
--- NOTE | 2016-10-13 10:30 | NUR ---
Social visit with pt and today. He would not talk with me much. I explained the doctor thinking he will need skilled prior to home unless he does quite well with therapy and starts participating. She really did not know but are open to this. I discussed options around the [place] area and they stated to start with the swingbed and his md is Dr Holman. I did explained wherever he goes they will still need to transport for dialysis because they will not be able to provide this. I could look in [place] but then they will need to find a new pcp. She would like to stay around there hometown if able. I then had a talk about working and participating with therapy and not telling them no because [facility] will not pay for it then. He stated he understood, so I told him when they want to walk he needs to walk, when they want him to get cleaned up he needs to get cleaned up. I then called Shari at [place] and faxed a referral and explained it would be a short swingbed stay and family would still transport for the dialysis. She stated they are going to meet at [facility] and will discuss. I told her he could be ready tomorrow???
--- NOTE | 2016-10-13 14:32 | NUR ---
Introduced self and purpose of heart healthy education and care transitions. at bedside, patient awake but not interacting. On hemodialysis. Calendar given, information reviewed, verbalized understanding.
--- NOTE | 2016-10-13 16:13 | NUR ---
I spoke with Shari and she stated she does not think it should be an issue to take but needs to talk with Avril and Dr Holman so will call tomorrow. I explained we will need to make sure about the dialysis etc and if can take over the weekend.
--- NOTE | 2016-10-13 17:44 | NUR ---
Significant Event: A/Ox3. Forgetful and slow to respond at times. SBP-97-130s. P-50-60s. Afib with BBB. Afebrile. 3LNC with saturations in low to mid 90s. R) Ua midline saline locked. L) arm fistula ozzine blood dresing changed x1. shadow drainage noted. Planning TOMEKA with cardioversion tomorrow AM then dyalysis after.
[2016-10-14 04:14] LABS: ALBUMIN 3.5 gm/dL (3.5-5.0); ANION GAP 16.6 (10.0-19.0); CALCIUM 7.9 mg/dL (8.5-10.5); MAGNESIUM 2.3 mg/dL (1.8-2.6); PHOSPHORUS 2.9 mg/dL (2.5-4.9); POTASSIUM 4.6 mMol/L (3.7-5.1)
[2016-10-14 04:24] LABS: CREATININE 5.3 mg/dL (0.6-1.3)
--- NOTE | 2016-10-14 05:03 | NUR ---
Significant Event: Patient is alert/oriented x3, very flat affect and slow to respond at times. Has been restless throughout most of the night--sitting at the edge of the bed and asking to be repositioned back in bed about every 15 minutes for a few hours. Patient encouraged to try to get some sleep. Did report pain x1 (11/28); Percocet given and he was noted to be more calm. Occasionally takes off NC, educated patient not to do so since we need his O2 saturations to remain > 90%. SBP's have been 90-110's, HR 60-70's. Continues to be on 3L O2 (normally wears 2L O2 at home). He refused to wear CPAP last night. has remained at bedside throughout the night. Patient currently NPO. Follow up: TOMEKA and cardioversion today. Permits signed.
--- NOTE | 2016-10-14 11:36 | NUR ---
A-NURTRITION F/U TOMEKA AND CARDIOVERSION THIS AM, FOLLOWED BY DIALYSIS WT STABLE SINCE LAST F/U LABS: NA 131, K+ 4.6, GLU 80, BUN 26, SOCIAL WORK ASSOCIATE 5.3, ALB 3.5 MEDS: 10/12-LEXAPRO, PROAMATINE 10/13-ROCALTROL, ELIQUIS DIET RX: NPO (D/T PROCEDURES). CHOCOLATE GLUCERNA TID W/MEALS. ONLY 3 MEALS RECORDED SINCE LAST F/U ON 10/11; SIPS/BITES- 50%. EST NUTR.NEEDS: [id number] KCALS AND 88-110 GM PROTEIN D-AT NUTRITION RISK W/INADEQUATE INTAKE OF NUTRIENTS R/T DECREASED APPETITE AEB INTAKE RECORDS. ALSO AT NUTRITION RISK W/INCREASED NUTRIENT NEEDS R/T ALTERED SKIN INTEGRITY AND ALTERED RENAL FXN AEB STAGE III PU TO R)BUTTOCKS AND HD. I-RESUME CHOCOLATE GLUCERNA TID W/MEALS WHEN DIET RX RESTARTED M/E-GOAL: PO INTAKE >/=50% BY DISCHARGE 1)F/U PO INTAKE, SUPPLEMENT, WT, AND POC IN 4-6 DAYS 2)ASSIST NEEDED
--- NOTE | 2016-10-14 15:49 | NUR ---
Significant Event: A/Ox3. SBP- 70-90s pre dyalysis/cardioversion and 120s post. P-60-80s. Afebrile. Currently 3L NC with saturations in low 90s. R) hand and R) UA IC saline locked. NSR post cardioversion/TOMEKA after 1 shock. Anuria. Up with heavy 1A/nilay walker. Did not work with therapy. Did dangle at bedside x2. 3.5L Taken off at dyalysis.
--- NOTE | 2016-10-15 04:43 | NUR ---
Significant Event: A/O, forgetful/slow to respond, SBP 100-130s, HR sinus rhythm 70-80s, 3-4L O2, patient refuses to wear cpap at HS, Percocet x1 for lower back pain, no coverage needed for accuchecks, patient dangled at bedside frequently throughout night Follow up: continue to work on placement, dialysis needs
[2016-10-15 06:49] LABS: ALBUMIN 4.2 gm/dL (3.5-5.0); CALCIUM 7.9 mg/dL (8.5-10.5)
[2016-10-15 06:52] LABS: ANION GAP 16.7 (10.0-19.0); CREATININE 4.9 mg/dL (0.6-1.3); MAGNESIUM 2.2 mg/dL (1.8-2.6); PHOSPHORUS 1.9 mg/dL (2.5-4.9); POTASSIUM 4.7 mMol/L (3.7-5.1)
--- NOTE | 2016-10-15 17:00 | NUR ---
Significant Event: SLEEPY, STATES HE HAS "MY DAYS AND NIGHTS MIXED UP." AMBULATED X1 IN [place] FOR SHORT DISTANCE WITH PT. 1 ASSIST, GB AND WALKER. RIGHT ARM PIV X2 SL'D. C/O PAIN TO BACK, PERCOCET 1 TAB GIVEN X1. O2 WEANED TO 3L NC. SBP LOW, 80'S-100'S, DR. GLYNN AWARE. LOPRESSOR FREQUENCY CHANGED. Follow up:
[2016-10-16 03:30] LABS: ALBUMIN 3.8 gm/dL (3.5-5.0); CALCIUM 7.9 mg/dL (8.5-10.5); PHOSPHORUS 2.6 mg/dL (2.5-4.9)
[2016-10-16 03:37] LABS: ANION GAP 15.3 (10.0-19.0); CREATININE 5.8 mg/dL (0.6-1.3); MAGNESIUM 2.2 mg/dL (1.8-2.6); POTASSIUM 5.3 mMol/L (3.7-5.1)
--- NOTE | 2016-10-16 05:01 | NUR ---
Significant Event:A/Ox3. Flat affect. Afebrile. HR 70-80 SR with AVB. Remained on 3L/NC to maintain sats >90%. informed nursing that he wears 2L/NC at home. Refused to wear Cpap at [facility]. SBP 93-105. HS metoprolol given. Fistula to L)FA no drainage or oozing. Transfers 1 assist with walker. No BM noted, miralax requested by patient if not discharging. Percocet with HS meds. Xanax x1 for restlessness, patient up and down for first 6 hrs. Follow up:?Dialysis ?Home ?SWB
[2016-10-16] MEDS ORDERED: CORDARONE,PACE200 MG PO (09:57)
[2016-10-16] MEDS ORDERED: ELIQUIS2.5 MG PO (09:58)
[2016-10-16] MEDS ORDERED: B COMPLEX1 EACH PO (10:05)
[2016-10-16] MEDS ORDERED: LEXAPRO20 MG PO (10:19)
[2016-10-16] MEDS ORDERED: MYCOSTATIN OINT30 GM TOP (10:55)
--- NOTE | 2016-10-16 14:03 | NUR ---
DISCHARGE: ORIENTED X3. FLAT AFFECT. PASSIVE LEARNING. DISCHARGE INSTRUCTIONS REVIEWED WITH PATIENT'S . DENIED PAIN. VSS. O2 @ 2L NC. FORGET TO BRING PORTABLE OXYGEN, DAUGHTER BROUGHT FROM HOME, DISCHARGE WAS DELAYED D/T THIS. KAYEXALATE 30 GM PO GIVEN AT TIME OF DISCHARGE. INSTRUCTED TO GET AHOLD OF DIALYSIS CENTER IN AM (MONDAY) TO SEE IF SHE COULD GET PATIENT IN FOR HD. PIV'S DC'D, GAUZE, TAPE AND COBAN APPLIED TO BOTH AREAS. LEFT FISTULA INTACT WITH (+) BRUIT AND THRILL. DISCHARGE INTRUCTIONS REVIEWED WITH PATIENT'S . TAKEN TO [facility] BY KENDAL @ [id number] BY KERI.
== END 2016-10-16 13:55 | disposition home health service (06) | DRG 291 ==
LOC: GMED 15:01 → GPCU 17:38
PROVIDERS: Emergency Medicine; Internal Medicine; Internal Medicine Interventional Cardiology; Internal Medicine Nephrology; Nurse Practitioner; ADMIT Internal Medicine
DX: I13.2 Hypertensive heart and chronic kidney disease with heart failure and with stage 5 chronic kidney disease, or end stage renal disease (principal); N18.6 End stage renal disease; J96.21 Acute and chronic respiratory failure with hypoxia; J90 Pleural effusion, not elsewhere classified; L89.313 Pressure ulcer of right buttock, stage 3; B37.49 Other urogenital candidiasis; D63.1 Anemia in chronic kidney disease; I50.43 Acute on chronic combined systolic (congestive) and diastolic (congestive) heart failure; Z68.42 Body mass index [BMI] 45.0-49.9, adult; E11.22 Type 2 diabetes mellitus with diabetic chronic kidney disease; I48.91 Unspecified atrial fibrillation; Z99.2 Dependence on renal dialysis; J44.9 Chronic obstructive pulmonary disease, unspecified; E66.01 Morbid (severe) obesity due to excess calories; G47.33 Obstructive sleep apnea (adult) (pediatric); E78.5 Hyperlipidemia, unspecified; E66.9 Obesity, unspecified; Z91.19 Patient's noncompliance with other medical treatment and regimen; F32.9 Major depressive disorder, single episode, unspecified; F41.9 Anxiety disorder, unspecified
CPT/HCPCS: J0282; J1160; J1200; J1644; J7030; J7040; J7060; P9045; P9047

== ENCOUNTER → 2016-10-04 | Outpatient (CLI) | payer MEDICARE, OTHER ==
[~2016-10-04] MED LIST changes: +B COMPLEX1 EACH PO; +CORDARONE,PACE200 MG PO; +ELIQUIS2.5 MG PO; +HUMIBID LA (MU600 MG PO; +JANUVIA25 MG PO; +LANOXIN (DIGI125 MCG PO; +LEVAQUIN 250 M250 MG PO; +LEXAPRO20 MG PO; +LOPRESSOR25 MG PO; +MIDODRINE HCL5 MG PO; +MILK OF MA400 MG/5 M PO; +MYCOSTATIN OINT30 GM TOP; +NEURONTIN100 MG PO; +REMERON15 MG PO
== END | disposition disaster alternative care site (69) ==
LOC: GAMB 14:35
DX: I95.9 Hypotension, unspecified (principal); L98.8 Other specified disorders of the skin and subcutaneous tissue; N18.3 Chronic kidney disease, stage 3 (moderate); I12.9 Hypertensive chronic kidney disease with stage 1 through stage 4 chronic kidney disease, or unspecified chronic kidney disease; I48.91 Unspecified atrial fibrillation; E66.01 Morbid (severe) obesity due to excess calories; E03.9 Hypothyroidism, unspecified; E11.9 Type 2 diabetes mellitus without complications; R60.9 Edema, unspecified; Z86.79 Personal history of other diseases of the circulatory system; Z79.891 Long term (current) use of opiate analgesic; Z79.84 Long term (current) use of oral hypoglycemic drugs; Z79.899 Other long term (current) drug therapy; Z79.4 Long term (current) use of insulin
CPT/HCPCS: A0422; A0425; A0427

== ENCOUNTER → 2016-10-20 | Emergency (ER) | payer MEDICARE, OTHER ==
[~2016-10-20] MED LIST changes: +B COMPLEX1 EACH PO; +CORDARONE,PACE200 MG PO; +ELIQUIS2.5 MG PO; +LANOXIN (DIGI125 MCG PO; +LEVAQUIN 250 M250 MG PO; +LEXAPRO20 MG PO; +LOPRESSOR25 MG PO; +MILK OF MA400 MG/5 M PO; +MYCOSTATIN OINT30 GM TOP; +NEURONTIN100 MG PO; +REMERON15 MG PO
== END | disposition disaster alternative care site (69) ==
LOC: GAMB 10:54
DX: R53.1 Weakness (principal); I12.9 Hypertensive chronic kidney disease with stage 1 through stage 4 chronic kidney disease, or unspecified chronic kidney disease; N18.3 Chronic kidney disease, stage 3 (moderate); E03.9 Hypothyroidism, unspecified; E11.9 Type 2 diabetes mellitus without complications; M10.9 Gout, unspecified; Z79.891 Long term (current) use of opiate analgesic; Z79.4 Long term (current) use of insulin; Z79.84 Long term (current) use of oral hypoglycemic drugs; Z79.899 Other long term (current) drug therapy

== ENCOUNTER → 2016-11-10 | Outpatient (CLI) | payer MEDICARE, OTHER | END | disposition disaster alternative care site (69) | LOC: GAMB 15:49 | DX: I95.9 Hypotension, unspecified (principal); I12.9 Hypertensive chronic kidney disease with stage 1 through stage 4 chronic kidney disease, or unspecified chronic kidney disease; N18.3 Chronic kidney disease, stage 3 (moderate); M10.9 Gout, unspecified; E11.9 Type 2 diabetes mellitus without complications; E03.9 Hypothyroidism, unspecified; R53.83 Other fatigue; Z96.89 Presence of other specified functional implants; Z79.84 Long term (current) use of oral hypoglycemic drugs; Z79.891 Long term (current) use of opiate analgesic; Z79.899 Other long term (current) drug therapy | CPT/HCPCS: A0422; A0425; A0427 ==

== ENCOUNTER → 2017-01-18 | Outpatient (CLI) | payer MEDICARE, OTHER | END | disposition disaster alternative care site (69) | LOC: GAMB 16:36 | DX: T82.590A Other mechanical complication of surgically created arteriovenous fistula, initial encounter (principal); I77.0 Arteriovenous fistula, acquired; I12.9 Hypertensive chronic kidney disease with stage 1 through stage 4 chronic kidney disease, or unspecified chronic kidney disease; E11.22 Type 2 diabetes mellitus with diabetic chronic kidney disease; N18.3 Chronic kidney disease, stage 3 (moderate); E03.9 Hypothyroidism, unspecified; M10.9 Gout, unspecified; Z79.899 Other long term (current) drug therapy | CPT/HCPCS: A0425; A0429 ==

== ENCOUNTER 2017-01-19 12:19 | Inpatient (IN) | payer MEDICARE, OTHER ==
[~2017-01-19] VITALS: Ht 175.3 cm; Wt 110.8 kg
--- NOTE | ~2017-01-19 | HP ---
PATIENT'S NAME: IZAIAH MUÑOZ [facility] AGE: 66 Y [address] ROOM: [place] [address] LOCATION: GICU ADMIT DATE: 01/19/2017 History & Physical DISCHARGE DATE: FAMILY PHYSICIAN: Gildardo Holman MD ATTENDING PHYSICIAN: BRITTANI OSEI DATE OF SERVICE: CHIEF COMPLAINT: Hypertension and fever. HISTORY OF PRESENT ILLNESS: This is a 66-year-old male with known history of hypertension, end-stage renal disease, on dialysis, 4 times a week, paroxysmal AFib, on Eliquis, who presents to the emergency room today with complaints of generalized weakness, fatigue, and oozing of blood from his left upper extremity AV fistula site that is used for dialysis. Upon evaluation in the emergency room, the patient was noted to spike a fever with a temperature of 102 and blood pressure fluctuating between 70s to 80s systolic and with symptoms of dizziness and lightheadedness when this happens. The patient during my evaluation was lying flat, awake, alert, oriented x3, he has gotten about 2 L of fluids when I saw him, and he was symptomatically improved. He does report some dizziness and lightheadedness; however, is overall okay. Denies any chest pain, shortness of breath, cough, dysuria, or urinary frequency type symptoms, no nausea, vomiting, diarrhea, or constipation, and appetite has been good. PAST MEDICAL HISTORY: 1. Chronic AFib. 2. Long-term anticoagulation with Eliquis. 3. End-stage renal disease on hemodialysis. 4. Hypothyroidism. SOCIAL HISTORY: The patient does not report active use of tobacco, alcohol, or drug use. FAMILY HISTORY: The patient has a history of hypertension in his parents. REVIEW OF SYSTEMS: All systems have been reviewed and were all negative except as described in the HPI. PHYSICAL EXAMINATION: VITAL SIGNS: Temperature max of 100.2, respiratory rate 20, blood pressure 80/50, and saturating 95% on 3 L of oxygen. PATIENT'S NAME: IZAIAH MUÑOZ [facility] AGE: 66 Y [address] ROOM: [place] [address] LOCATION: [facility] ADMIT DATE: 01/19/2017 History & Physical DISCHARGE DATE: FAMILY PHYSICIAN: Gildardo Holman MD ATTENDING PHYSICIAN: BRITTANI OSEI GENERAL: The patient is awake, alert, and oriented x3, in no distress, obese appearing. HEENT: Moist mucous membranes. No scleral icterus or conjunctival pallor noted. SKIN: Without rash or lesions. CHEST: Clear to auscultation bilaterally. HEART: S1, S2, irregular and tachycardic. ABDOMEN: Soft, nontender, nondistended. EXTREMITIES: Without edema. NEURO: Grossly nonfocal. MUSCULOSKELETAL: No joint tenderness, effusion, or erythema noted. SIGNIFICANT LABS: White count of 12,000. ASSESSMENT AND PLAN: 1. Systemic inflammatory response syndrome. No clear source identified. Chest x-ray, UA negative. Blood cultures x2 drawn and given broad- spectrum antibiotics vancomycin and Zosyn x1 in the ED. In this setting, the patient has received about 2 L of intravenous fluids and since he has end-stage renal disease, we will now do just monitoring. Symptomatically, he has seemed to improve. I will hold off on continuing antibiotics and await for results of cultures and repeat blood work in the morning and see. 2. Chronic atrial fibrillation with rapid ventricular rate. Heart rate in 120s during my evaluation. The patient on p.o. digoxin at home. Given a dose of 125 mcg of digoxin intravenous x1 and see. 3. End-stage renal disease, on hemodialysis. We will ask Nephrology Dr. Isabel to see him during hospitalization. 4. Long-term anticoagulation on Eliquis and we will continue this. MD HAILEE JEAN-BAPTISTE/modl /[id number] D: T: 556 HISTORY & PHYSICAL
--- NOTE | ~2017-01-19 | ER ---
PATIENT'S NAME: IZAIAH MUÑOZ [facility] AGE: 66 Y [address] ROOM: [id number] [place] [address] LOCATION: GICU ADMIT DATE: 01/19/2017 ER/Outpatient Report DISCHARGE DATE: FAMILY PHYSICIAN: Gildardo Holman MD ATTENDING PHYSICIAN: BRITTANI OSEI CHIEF COMPLAINT: Bleeding fistula. HISTORY OF PRESENT ILLNESS: Mr. Muñoz presents by ambulance from dialysis. By report, he had a bleeding fistula. This was seen yesterday and addressed at the [facility]. He was discharged home, came back for dialysis today for volume removal and it was found to be still oozing and he was directed to come to the ER. At that time, he had minimal oozing. Dr. Isabel, compensation manager, requested the patient to be evaluated and given DDAVP, if otherwise doing okay and have him finished dialysis. PAST MEDICAL HISTORY: Documented on the record and reviewed by me. SOCIAL HISTORY: Documented on the record and reviewed by me. MEDICATIONS: Documented on the record and reviewed by me. ALLERGIES: DOCUMENTED ON THE RECORD AND REVIEWED BY ME. REVIEW OF SYSTEMS: All systems reviewed and negative except as noted in the HPI. PHYSICAL EXAMINATION: VITAL SIGNS: Blood pressure initially 117/71, pulse 100, respiratory rate 16, temperature 97.8, SpO2 is 98% on room air. Pain 0/10. GENERAL: Age-appropriate male, ill appearance, obese, recumbent on exam table. No apparent pain or distress. NEUROLOGIC: Awake and alert. GCS is 15. No focal deficits. No asymmetry. HEENT: Normocephalic, atraumatic. Eyes are PERRL. Oropharynx is clear. NECK: Supple. Trachea is midline. CHEST/HEART: Irregularly irregular, tachycardic. No obvious murmurs. LUNGS: Grossly clear to auscultation, limited by body habitus. ABDOMEN: Obese, but soft, nontender, and nondistended. No rebound or guarding. PATIENT'S NAME: IZAIAH MUÑOZ [facility] AGE: 66 Y [address] ROOM: [id number] [place] [address] LOCATION: GICU ADMIT DATE: 01/19/2017 ER/Outpatient Report DISCHARGE DATE: FAMILY PHYSICIAN: Gildardo Holman MD ATTENDING PHYSICIAN: BRITTANI OSEI BACK: Normal to inspection and palpation. The groin has scant erythema with no evidence of definitive infection. No tenderness, fluctuance, or abscesses. EXTREMITIES: Cool. There is a fistula in the left upper extremity which is not bleeding. The remainder of the extremities are well-formed with no obvious abnormalities. SKIN: Appears to be grossly intact. LABORATORY DATA AND X-RAYS: Chest x-ray is unremarkable for me as counting for poor positioning and body habitus. EKG is atrial fib with a rate of roughly 105 and 140 beats per minute. CBC: White count is 12.3, hemoglobin is 12.8, platelets of 185, lactate is 1.2. CMS with no electrolyte abnormalities. BUN is 26, creatinine is 4.6, GFR is 12. LFTs are grossly unremarkable. CRP is 10.7. IMPRESSION: Systemic inflammatory response syndrome without source with presumed infection. EMERGENCY DEPARTMENT COURSE: The patient was seen and evaluated at bedside. He was doing well with no symptoms, was given his dose of DDAVP and was being ready to be discharged when the patient's heart rate became higher and he was found to be febrile at 102.7. At that time, the patient's workup was broadened for a septic workup. He remained asymptomatic. His blood pressures were very labile. He does take Midrin for low blood pressures and states his normal blood pressure is usually in the mid 80s systolic. He spent significant amount of time with his blood pressures in the 70s and in fact trended down to the 60s. Based on the fact that he now has fever along with an elevated white blood cell count, he meets SIRS criteria. I do not have a source, we will treat him empirically with broad-spectrum antibiotics, we gave him his Midrin and 1 L bolus. We will admit him to the Hospitalist Service for observation to ensure that he does not have any further complication. All questions were answered and the patient was admitted without further issue. MD XIN NEUMANN/yolanda /[id number] d: 01/20/17 1439 t: 01/23/17 0750, OUTPATIENT REPORT
--- NOTE | ~2017-01-19 | CON ---
PATIENT'S NAME: IZAIAH MUÑOZ [facility] AGE: 66 Y [address] ROOM: [id number] [place], [place] [id number] LOCATION: GICU ADMIT DATE: 01/19/2017 Consultation DISCHARGE DATE: FAMILY PHYSICIAN: Gildardo Holman MD ATTENDING PHYSICIAN: BRITTANI NOVOA DATE OF CONSULTATION: 01/20/2017 REFERRING PHYSICIAN: Lisa Isabel REFERRING PHYSICIAN: Hospitalist Service. REASON FOR CONSULTATION: End-stage renal disease, on hemodialysis; possible sepsis. HISTORY OF PRESENT ILLNESS: A 66-year-old male with known history of hypertension, end-stage renal disease, on dialysis 4 times a week, paroxysmal atrial fibrillation, on long- term anticoagulation with Eliquis, presented to the emergency room with weakness, fatigue, and fever of 102 degrees Fahrenheit. He has also mild oozing of blood from his left upper extremity AV fistula site that is generally used for dialysis. Nephrology consultation has been called for dialysis management. The patient has been seen and examined on dialysis, tolerating dialysis well. Getting dialyzed through the left forearm AV fistula. No further oozing noted during my evaluation. The patient got one dose of vancomycin and Zosyn in the ER for suspected sepsis, however, there is no specific source of the infection, although the patient fulfilled the SIRS criteria. Chest x-ray looks negative. Urinalysis looks normal. Blood culture is pending and so far no growth. Primary team is withholding further antibiotic therapy for now until we get anything on the culture. During dialysis, the patient's blood pressure is 120/58, otherwise doing well, not on any hemodynamic instability, or he is not having any neurological complications. REVIEW OF SYSTEMS: GENERAL: No fever. No chills or rigor. HEENT: No sore throat. No sinus congestion. CVS: No chest pain. No exertional shortness of breath. No leg swelling. RESPIRATORY: No shortness of breath. No cough. No wheezing. GENITOURINARY: No pain with urination. No increased frequency. No nocturia. GASTROINTESTINAL: No abdominal pain. No abdominal distention. No nausea or vomiting. NEUROLOGIC: No weakness. No seizures. SKIN: No rash. No itching. ALLERGIES: No seasonal allergy. No hayfever. ENDOCRINE: No heat intolerance. No cold intolerance. PSYCHIATRIC: No sadness. No crying spells. No history of panic attack. PAST MEDICAL HISTORY: 1. End-stage renal disease, on hemodialysis Monday, , and Monday. 2. Anemia of chronic disease. 3. Hypertension. 4. Diabetes. 5. Obstructive sleep apnea, noncompliant with CPAP. 6. Morbid obesity. 7. Hypothyroidism. 8. GERD. 9. Chronic constipation. 10. Factor V Leiden mutation. PATIENT'S NAME: IZAIAH MUÑOZ [facility] AGE: 66 Y [address] ROOM: [id number] [place], [place] [address] LOCATION: CU ADMIT DATE: 01/19/2017 Consultation DISCHARGE DATE: FAMILY PHYSICIAN: Gildardo Holman MD ATTENDING PHYSICIAN: BRITTANI NOVOA PAST SURGICAL HISTORY: 1. Left forearm fistula placement. 2. Hernia repair. 3. Right nasal endoscopy with excision of right nasal lesion. 4. Forearm primary radiocephalic AV fistula placement. 5. Peritoneal dialysis catheter placement and removal. 6. Bilateral carpal tunnel release. 7. Knee arthroscopy. ALLERGIES: NO KNOWN DRUG ALLERGIES. HOME MEDICATIONS: As per the chart. SOCIAL HISTORY: Does live home with his . 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 No history of tobacco or alcohol use. FAMILY HISTORY: Positive for history of diabetes and hypertension. No history of renal disease or dialysis. PHYSICAL EXAMINATION: VITAL SIGNS: Blood pressure 120/56; pulse 80; respiratory rate 16; temperature 98.2 now, however, the patient had 102 degree Fahrenheit temperature in the ER; saturation 94% to 96% on 2 L. GENERAL: Not in apparent distress. HEAD: Moist mucous membranes. Bilateral PERRLA, EOMI. NECK: No JVD, thyromegaly or lymphadenopathy. CVS: S1 and S2 normal, regular rate and rhythm. No murmur, rub, gallop. CHEST: Bilateral air entry equal. No wheeze or rales. ABDOMEN: Soft, nontender, nondistended. Bowel sounds present. EXTREMITIES: No cyanosis, clubbing, jaundice. No dependent edema. MUSCULOSKELETAL: No limitation of range of motion. SKIN: No pallor, cyanosis, icterus. BILINGUAL [employer] TEACHER: Alert and oriented x3. No gross findings. LABORATORY DATA: Lactate 1.2. WBC count 12.3, increased to 12.7; hemoglobin 9.8, platelet 181. Chemistry: Sodium 137, potassium 4.9, chloride 102, bicarbonate 23, BUN 37, creatinine 5.6, glucose 102, calcium 8.8, albumin 2.1. Random vancomycin 15. RVP panel is pending. Procalcitonin 0.64.PATIENT'S NAME: IZAIAH MUÑOZ [facility] AGE: 66 Y [address] ROOM: [id number] [place], [place] [address] LOCATION: [facility] ADMIT DATE: 01/19/2017 Consultation DISCHARGE DATE: FAMILY PHYSICIAN: Gildardo Holman MD ATTENDING PHYSICIAN: BRITTANI NOVOA IMAGING DATA: Chest x-ray, bilateral consolidation and effusion. Mild cardiomegaly appearance versus edema, infection possibly given the clinical history. ASSESSMENT AND PLAN: 1. End-stage renal disease, on dialysis, generally undergoing in-center hemodialysis 4 times a week. We will continue dialysis while in the hospital. We will dialyze today and over the weekend. We will closely monitor. If the patient needs dialysis, we will dialyze, otherwise next dialysis will be on Monday. Today getting dialysis on 2K bath for 4 hours with ultrafiltrate goal of 2 to 2.5 L depending on hemodynamics seen and examined during hemodialysis. No significant hemodynamic complication or neurologic impairment. Feeling okay. 2. Systemic inflammatory response syndrome/questionable sepsis. No clear source on chest x-ray, although reported to have some bilateral consolidation in the basis, but possibly that is fluid overload. UA is negative. Blood culture too has been drawn and is currently pending. The patient got vancomycin and Zosyn in the ER. The procalcitonin is negative. No significant increase in lactate. Primary team is withholding antibiotic pending the blood culture. If the blood culture comes back positive, then they are planning for continuing further antibiotic therapy. For now, continue to monitor. 3. Chronic atrial fibrillation with rapid ventricular rate. Currently ventricular rate is in 80s. On p.o. digoxin at home, and the patient got 125 mcg of digoxin IV x1 in the ER, also on Eliquis as per long-term anticoagulation. Continue current vent management. 4. Significant pulmonary hypertension. The patient had trouble with hypotension and low effective circulatory volume in the past with aggressive ultrafiltrate. We will be careful during dialysis, not to make him too dry and maintain his blood pressure during dialysis. We may use midodrine or albumin during dialysis to prevent intradialytic hypotension. Thank you for allowing me to participate in this patient's care. I will closely monitor the patient's progress along with you. ABHISEKH HUGO CASTILLO MD /modl /[id number] CC: Brittani Novoa MD d: 01/20/17 2204 t: 01/27/17 0947, CONSULTATION REPORT
--- NOTE | ~2017-01-19 | OR ---
PATIENT'S NAME: IZAIAH MUÑOZ [facility] AGE: 66 Y [address] ROOM: [place] [address] LOCATION: GPCU ADMIT DATE: 01/19/2017 OR/Procedure Report DISCHARGE DATE: 01/27/2017 FAMILY PHYSICIAN: Gildardo Holman MD ATTENDING PHYSICIAN: Javier Kiran SURGEON: Tay Houston DO MOTORBIKE COURIER: DATE OF PROCEDURE: 01/26/2017 PREOPERATIVE DIAGNOSIS: Recurrent right pleural effusion. POSTOPERATIVE DIAGNOSIS: Recurrent right pleural effusion. PROCEDURE: Insertion of right PleurX catheter. REFERRING: Bryon Birch MD BRIEF HISTORY: Mr. Muñoz is a 66-year-old, white male with the above-noted diagnosis. He has had five previous thoracentesis and his effusion continues to return. He has been admitted to the hospital recently for increasing shortness of breath and difficulty with dialysis and we have been asked to see him for a PleurX drain. He has been brought to the operative suite today for insertion of his said drain after informed consent was obtained. He was sterilely prepped and draped in usual fashion over the right chest. Ultrasound had been used to cipriano the effusion. The chest was sterilely prepped and draped. Two skin wheals of 1% lidocaine were created and a subcutaneous tunnel was also infiltrated. Two stab incisions were made, and the catheter was tunneled without difficulty. We then accessed the pleural space and a guidewire fed without resistance. This was done under fluoroscopic guidance. The introducer needle was removed. Serial dilators were placed over the guidewire and removed and then a sheath dilator assembly was placed and the dilator was removed and through the sheath, the catheter was placed under fluoroscopic guidance. The sheath was then removed without difficulty. Catheter secured to suction and secured to the chest wall with 0 silk. The lateral stab incision was then approximated with 3-0 Vicryl. The patient tolerated the procedure well, was transferred to the recovery area in stable condition. TAY HOUSTON DO MCB/modl PATIENT'S NAME: IZAIAH MUÑOZ [facility] AGE: 66 Y [address] ROOM: [address] [address] LOCATION: GPCU ADMIT DATE: 01/19/2017 OR/Procedure Report DISCHARGE DATE: 01/27/2017 FAMILY PHYSICIAN: Gildardo Holman MD ATTENDING PHYSICIAN: Javier Kiran /[id number] d: 01/30/171926 t: 01/30/172114, OPERATIVE SUMMARY
--- NOTE | ~2017-01-19 | DS ---
PATIENT'S NAME: IZAIAH MUÑOZ [facility] AGE: 66 Y [address] ROOM: [place] [address] LOCATION: GPCU ADMIT DATE: 01/19/2017 Discharge Summary DISCHARGE DATE: 01/27/2017 FAMILY PHYSICIAN: Gildardo Holman MD ATTENDING PHYSICIAN: Shauna Novoa PRIMARY DIAGNOSES: 1. Systemic inflammatory response syndrome. 2. Recurrent bilateral pleural effusions. 3. Obstructive sleep apnea. 4. Paroxysmal atrial fibrillation, on long-term anticoagulation with Eliquis. 5. End-stage renal disease, on hemodialysis. 6. Factor V Leiden. 7. Morbid obesity. 8. Moderate protein-calorie malnutrition. 9. Chronic hypoxic respiratory failure with 3 L oxygen dependence. OPERATIONS AND PROCEDURES: PleurX catheter placement was performed on 01/26/[address] Geller without any complications. CT scan of the chest, abdomen, and pelvis was performed on 01/22/2017 demonstrating large bilateral pleural effusions, right greater than left; mild cardiomegaly; no acute intraabdominal process. HISTORY OF PRESENTING ILLNESS AND REASON FOR ADMISSION: Please refer to the H and P dictated on 01/19/2017. HOSPITAL COURSE: The patient was admitted to hospital as noted above with a presumptive diagnosis of systemic inflammatory response syndrome. Cultures were obtained, and he was treated with broad-spectrum antibiotic therapy including Zosyn and vancomycin initially. He also received Flagyl. CT scan of the chest, abdomen, and pelvis was obtained as outlined above. He was noted to have recurrent bilateral pleural effusions. Pulmonology was consulted. Dr. Hughes recommended PleurX catheter placement and Dr. Geller was subsequently consulted. PleurX catheter was accomplished on 01/26/2017 as described above. Cultures remained negative over the course of his hospital stay. He defervesced and his oxygen requirements remained relatively stable. By the end of the 8th day of his hospital stay, it was felt he would be stable enough for discharge home on continued antibiotic therapy and plans for close clinical followup with Nephrology as well as outpatient followup with PATIENT'S NAME: IZAIAH MUÑOZ [facility] AGE: 66 Y [address] ROOM: [place] [address] LOCATION: GPCU ADMIT DATE: 01/19/2017 Discharge Summary DISCHARGE DATE: 01/27/2017 FAMILY PHYSICIAN: Gildardo Holman MD ATTENDING PHYSICIAN: Shauna Novoa Pulmonology. DISCHARGE INSTRUCTIONS: DIET: Renal prudent as tolerated. ACTIVITY: As tolerated. MEDICATIONS: 1. Allopurinol 100 mg p.o. b.i.d. 2. Atorvastatin 40 mg p.o. daily. 3. PhosLo 667 two tablets p.o. t.i.d. and b.i.d. p.r.n. with snacks. 4. Gabapentin 100 mg p.o. q.h.s. 5. Gemfibrozil 600 mg p.o. b.i.d. 6. Levothyroxine 200 mcg p.o. daily. 7. Midodrine 5 mg p.o. t.i.d. 8. Mirtazapine 7.5 mg p.o. q.h.s. 9. Nystatin ointment applied topically t.i.d. 10. Renvela 800 mg p.o. b.i.d. and 3200 mg p.o. t.i.d. with meals. 11. MiraLAX 17 g p.o. daily. 12. Percocet 5/325 one tablet p.o. q.4 hours p.r.n. pain. 13. Milk of magnesia 30 mL p.o. daily p.r.n. constipation. 14. Zantac 150 mg p.o. daily. 15. Calcitriol 1.5 mcg p.o. three times a week. 16. CPAP at h.s. 17. Eliquis 2.5 mg p.o. daily. 18. Vitamin B Complex 1 tablet p.o. daily. 19. Digoxin 125 mcg p.o. three times weekly. 20. Levofloxacin 250 mg p.o. q.48 hours x3 more doses. FOLLOWUP: He will follow up with Dr. Hughes as previously scheduled in [place] on 02/08/2017. He will follow up Dr. Holman in 3 days. CONDITION ON DISCHARGE: Fair. TIME SPENT: Total time spent on discharge process 45 minutes. MD TRENTON RUSSELL/yolanda PATIENT'S NAME: IZAIAH MUÑOZ [facility] AGE: 66 Y [address] ROOM: [place] [address] LOCATION: GPCU ADMIT DATE: 01/19/2017 Discharge Summary DISCHARGE DATE: 01/27/2017 FAMILY PHYSICIAN: Gildardo Holman MD ATTENDING PHYSICIAN: Shauna Novoa /[id number] d: 01/28/17 0241 t: 01/29/17 1726, DISCHARGE SUMMARY
[~2017-01-19 12:19] MED LIST changes: -LANOXIN (DIGI125 MCG PO; -LEVAQUIN 250 M250 MG PO; -MILK OF MA400 MG/5 M PO; -NEURONTIN100 MG PO; -REMERON15 MG PO
[2017-01-19 13:23] LABS: BASOPHIL # 0.1 K/uL (0.0-0.2); BASOPHIL % 0.4 %; EOSINOPHIL % 0.3 %; HEMOGLOBIN 12.8 g/dL (11.0-16.0); IMMATURE GRANULOCYTE # 0.2 K/uL (0.0-0.3); IMMATURE GRANULOCYTE % 1.2 %; LYMPHOCYTE # 0.8 K/uL (0.8-4.0); LYMPHOCYTE % 6.4 %; MCH 31.2 pg (27.0-34.0); MONOCYTE # 1.4 K/uL (0.0-1.0); MPV 10.7 fl (9.4-12.4); NEUTROPHIL # (ANC) 9.9 K/uL (1.4-9.0); NEUTROPHIL % 80.7 %; NRBC % 0 /100WBC (0-0.00); RDW-CV 17.2 % (11.9-14.6); WBC 12.3 K/uL (4.0-11.0)
[2017-01-19 13:27] LABS: HEMATOCRIT 40.8 % (37.0-53.0); MCHC 31.4 gm/dL (32.0-36.5); MCV 99.5 fl (83.0-98.0); PLATELET COUNT 185 K/uL (150-450)
[2017-01-19 15:12] LABS: ALBUMIN 2.2 gm/dL (3.5-5.0); ALK PHOS 134 IU/L (33-138); ANION GAP 12.6 (10.0-19.0); AST 17 IU/L (10-40); BLOOD UREA NITROGEN 26 mg/dL (6-24); CALCIUM 8.4 mg/dL (8.5-10.5); CHLORIDE 103 mMol/L (96-110); CO2 26 mMol/L (22-32); POTASSIUM 4.6 mMol/L (3.7-5.1); SODIUM 137 mMol/L (135-145); TOTAL PROTEIN 7.3 g/dL (6.0-8.4)
[2017-01-19 15:13] LABS: ALT < 10 IU/L (12-78); CREATININE 4.6 mg/dL (0.6-1.3); TOTAL BILIRUBIN 0.5 mg/dL (0.0-1.5)
[2017-01-19] MEDS ORDERED: LEVOTHROID (S200 MCG PO (17:44)
[2017-01-20 05:54] LABS: BASOPHIL # 0.1 K/uL (0.0-0.2); BASOPHIL % 0.5 %; EOSINOPHIL # 0.1 K/uL (0.0-0.5); EOSINOPHIL % 0.9 %; HEMOGLOBIN 9.8 g/dL (11.0-16.0); IMMATURE GRANULOCYTE # 0.2 K/uL (0.0-0.3); IMMATURE GRANULOCYTE % 1.2 %; LYMPHOCYTE # 1.3 K/uL (0.8-4.0); LYMPHOCYTE % 10.4 %; MCH 30.8 pg (27.0-34.0); MCHC 30.3 gm/dL (32.0-36.5); MCV 101.6 fl (83.0-98.0); MONOCYTE # 1.4 K/uL (0.0-1.0); MONOCYTE % 11.1 %; MPV 10.1 fl (9.4-12.4); NEUTROPHIL # (ANC) 9.6 K/uL (1.4-9.0); NEUTROPHIL % 75.9 %; NRBC % 0 /100WBC (0-0.00); PLATELET COUNT 181 K/uL (150-450); RBC 3.18 M/uL (3.50-5.50); WBC 12.7 K/uL (4.0-11.0)
[2017-01-20 05:56] LABS: HEMATOCRIT 32.3 % (37.0-53.0)
[2017-01-20 06:09] LABS: ALBUMIN 2.1 gm/dL (3.5-5.0); ANION GAP 16.9 (10.0-19.0); CALCIUM 8.8 mg/dL (8.5-10.5); MAGNESIUM 2.2 mg/dL (1.8-2.6); POTASSIUM 4.9 mMol/L (3.7-5.1)
[2017-01-20 06:10] LABS: CREATININE 5.6 mg/dL (0.6-1.3)
[2017-01-20] MEDS ORDERED: LANOXIN (DIGI125 MCG PO (14:49)
[2017-01-20] MEDS ORDERED: REMERON15 MG PO (14:50)
[2017-01-20] MEDS ORDERED: NEURONTIN100 MG PO (14:50)
[2017-01-21 06:23] LABS: BASOPHIL # 0.1 K/uL (0.0-0.2); BASOPHIL % 0.4 %; EOSINOPHIL # 0.1 K/uL (0.0-0.5); EOSINOPHIL % 0.4 %; HEMATOCRIT 33.4 % (37.0-53.0); HEMOGLOBIN 10.1 g/dL (11.0-16.0); IMMATURE GRANULOCYTE # 0.2 K/uL (0.0-0.3); IMMATURE GRANULOCYTE % 1.4 %; LYMPHOCYTE # 1.1 K/uL (0.8-4.0); LYMPHOCYTE % 6.5 %; MCH 30.1 pg (27.0-34.0); MCHC 30.2 gm/dL (32.0-36.5); MCV 99.7 fl (83.0-98.0); MONOCYTE # 1.6 K/uL (0.0-1.0); MONOCYTE % 9.9 %; MPV 10.5 fl (9.4-12.4); NEUTROPHIL # (ANC) 13.2 K/uL (1.4-9.0); NEUTROPHIL % 81.4 %; NRBC % 0 /100WBC (0-0.00); PLATELET COUNT 190 K/uL (150-450); RBC 3.35 M/uL (3.50-5.50); RDW-CV 16.9 % (11.9-14.6)
[2017-01-21 06:29] LABS: WBC 16.2 K/uL (4.0-11.0)
[2017-01-21 06:39] LABS: ANION GAP 13.1 (10.0-19.0); CALCIUM 9.1 mg/dL (8.5-10.5); CREATININE 3.8 mg/dL (0.6-1.3); PHOSPHORUS 5.6 mg/dL (2.5-4.9); POTASSIUM 4.1 mMol/L (3.7-5.1)
[2017-01-21 06:40] LABS: ALBUMIN 1.9 gm/dL (3.5-5.0)
[2017-01-21 17:49] LABS: BICARBONATE 29.2 mmol/L (18.0-23.0); PCO2 45 mmHg (35-45); PO2 72 mmHg (80-90)
[2017-01-22 05:57] LABS: BASOPHIL % 0.2 %; EOSINOPHIL # 0.1 K/uL (0.0-0.5); EOSINOPHIL % 0.4 %; HEMATOCRIT 33.5 % (37.0-53.0); HEMOGLOBIN 10.4 g/dL (11.0-16.0); IMMATURE GRANULOCYTE # 0.4 K/uL (0.0-0.3); LYMPHOCYTE # 0.7 K/uL (0.8-4.0); LYMPHOCYTE % 4.1 %; MONOCYTE # 1.7 K/uL (0.0-1.0); MONOCYTE % 9.2 %; MPV 10.5 fl (9.4-12.4); NEUTROPHIL # (ANC) 15.4 K/uL (1.4-9.0); NEUTROPHIL % 84.1 %; NRBC % 0 /100WBC (0-0.00); PLATELET COUNT 228 K/uL (150-450); RBC 3.35 M/uL (3.50-5.50); RDW-CV 16.5 % (11.9-14.6)
[2017-01-22 05:58] LABS: WBC 18.3 K/uL (4.0-11.0)
[2017-01-22 06:08] LABS: ALBUMIN 2.3 gm/dL (3.5-5.0); ANION GAP 12.9 (10.0-19.0); CALCIUM 9.1 mg/dL (8.5-10.5); CREATININE 3.9 mg/dL (0.6-1.3); PHOSPHORUS 2.9 mg/dL (2.5-4.9); POTASSIUM 3.9 mMol/L (3.7-5.1)
[2017-01-22 12:13] LABS: ALBUMIN 2.3 gm/dL (3.5-5.0); TOTAL BILIRUBIN 0.6 mg/dL (0.0-1.5); TOTAL PROTEIN 7.6 g/dL (6.0-8.4)
[2017-01-23 04:16] LABS: BASOPHIL # 0.1 K/uL (0.0-0.2); BASOPHIL % 0.3 %; EOSINOPHIL # 0.1 K/uL (0.0-0.5); EOSINOPHIL % 0.7 %; HEMATOCRIT 31.5 % (37.0-53.0); HEMOGLOBIN 9.8 g/dL (11.0-16.0); IMMATURE GRANULOCYTE # 0.2 K/uL (0.0-0.3); LYMPHOCYTE # 0.8 K/uL (0.8-4.0); LYMPHOCYTE % 4.8 %; MCH 30.5 pg (27.0-34.0); MCHC 31.1 gm/dL (32.0-36.5); MCV 98.1 fl (83.0-98.0); MONOCYTE # 1.7 K/uL (0.0-1.0); MONOCYTE % 10.1 %; MPV 10.4 fl (9.4-12.4); NEUTROPHIL # (ANC) 13.9 K/uL (1.4-9.0); NEUTROPHIL % 83.1 %; NRBC % 0 /100WBC (0-0.00); PLATELET COUNT 231 K/uL (150-450); RBC 3.21 M/uL (3.50-5.50); RDW-CV 16.6 % (11.9-14.6)
[2017-01-23 04:17] LABS: WBC 16.7 K/uL (4.0-11.0)
[2017-01-23 04:29] LABS: ANION GAP 14.3 (10.0-19.0); CALCIUM 8.9 mg/dL (8.5-10.5); CREATININE 5.2 mg/dL (0.6-1.3); PHOSPHORUS 3.2 mg/dL (2.5-4.9); POTASSIUM 4.3 mMol/L (3.7-5.1)
[2017-01-23 18:35] LABS: ADENOVIRUS F 40/41 Not Detected (Not Detect); ASTROVIRUS Not Detected (Not Detect); C DIFFICILE TOXIN A/B Not Detected (Not Detect); CAMPYLOBACTER SPECIES Not Detected (Not Detect); CRYPTOSPORIDIUM Not Detected (Not Detect); CYCLOSPORA CAYETANENSIS Not Detected (Not Detect); E. COLI (EPEC) Not Detected (Not Detect); E. COLI (ETEC) Not Detected (Not Detect); E. COLI (STEC) Not Detected (Not Detect); ENTAMOEBA HISTOLYTICA Not Detected (Not Detect); GIARDIA LAMBLIA Not Detected (Not Detect); NOROVIRUS GI/ GII Not Detected (Not Detect); PLESIOMONAS SPECIES Not Detected (Not Detect); ROTAVIRUS A Not Detected (Not Detect); SALMONELLA SPECIES Not Detected (Not Detect); SAPOVIRUS Not Detected (Not Detect); SHIGELLA AND EIEC Not Detected (Not Detect); VIBRIO SPECIES Not Detected (Not Detect); YERSINIA ENTEROCOLITICA Not Detected (Not Detect)
[2017-01-24 07:13] LABS: BASOPHIL # 0.1 K/uL (0.0-0.2); BASOPHIL % 0.6 %; EOSINOPHIL # 0.3 K/uL (0.0-0.5); HEMOGLOBIN 11.1 g/dL (11.0-16.0); IMMATURE GRANULOCYTE # 0.4 K/uL (0.0-0.3); IMMATURE GRANULOCYTE % 2.4 %; LYMPHOCYTE # 1.1 K/uL (0.8-4.0); LYMPHOCYTE % 6.9 %; MCH 30.1 pg (27.0-34.0); MCV 100.3 fl (83.0-98.0); MONOCYTE # 1.5 K/uL (0.0-1.0); MONOCYTE % 9.8 %; MPV 10.2 fl (9.4-12.4); NEUTROPHIL # (ANC) 12.3 K/uL (1.4-9.0); NEUTROPHIL % 78.3 %; NRBC % 0 /100WBC (0-0.00); PLATELET COUNT 277 K/uL (150-450); RBC 3.69 M/uL (3.50-5.50); RDW-CV 16.7 % (11.9-14.6); WBC 15.8 K/uL (4.0-11.0)
[2017-01-24 07:24] LABS: ALBUMIN 2.6 gm/dL (3.5-5.0); ANION GAP 12.8 (10.0-19.0); PHOSPHORUS 3.7 mg/dL (2.5-4.9); POTASSIUM 3.8 mMol/L (3.7-5.1)
[2017-01-24 07:49] LABS: CREATININE 4.1 mg/dL (0.6-1.3)
[2017-01-25 03:29] LABS: HEMATOCRIT 35.1 % (37.0-53.0); HEMOGLOBIN 10.5 g/dL (11.0-16.0); MCH 29.7 pg (27.0-34.0); MCHC 29.9 gm/dL (32.0-36.5); MCV 99.2 fl (83.0-98.0); MPV 10.3 fl (9.4-12.4); PLATELET COUNT 264 K/uL (150-450); RBC 3.54 M/uL (3.50-5.50); RDW-CV 16.5 % (11.9-14.6); WBC 12.2 K/uL (4.0-11.0)
[2017-01-25 03:40] LABS: INR - (THERAPEUTIC) 1.45 (0.92-1.07); PROTIME 15.3 SECONDS (9.8-11.4)
[2017-01-25 03:41] LABS: ALBUMIN 2.6 gm/dL (3.5-5.0); ANION GAP 13.8 (10.0-19.0); CALCIUM 8.9 mg/dL (8.5-10.5); CREATININE 3.6 mg/dL (0.6-1.3); PHOSPHORUS 2.3 mg/dL (2.5-4.9); POTASSIUM 3.8 mMol/L (3.7-5.1)
[2017-01-25 04:12] LABS: ABSOLUTE NEUTROPHIL CT (ANC) 9.4 K/uL (1.4-9.0); BANDED NEUTROPHIL # 2.3 K/uL (0.0-0.1); BANDED NEUTROPHILS % 19 %; LYMPHOCYTE # 1.3 K/uL (0.8-4.0); LYMPHOCYTE % 11 %; MONOCYTE # 0.5 K/uL (0.0-1.0); SEGMENTED NEUTROPHIL # 7.1 K/uL (1.4-9.0); SEGMENTED NEUTROPHIL % 58 %
[2017-01-26 04:51] LABS: HEMATOCRIT 37.9 % (37.0-53.0); HEMOGLOBIN 11.6 g/dL (11.0-16.0); MCH 30.3 pg (27.0-34.0); MCHC 30.6 gm/dL (32.0-36.5); MPV 10.5 fl (9.4-12.4); PLATELET COUNT 306 K/uL (150-450); RBC 3.83 M/uL (3.50-5.50); RDW-CV 16.5 % (11.9-14.6); WBC 10.9 K/uL (4.0-11.0)
[2017-01-26 04:58] LABS: INR - (THERAPEUTIC) 1.35 (0.92-1.07); PROTIME 14.2 SECONDS (9.8-11.4)
[2017-01-26 05:04] LABS: ALBUMIN 2.9 gm/dL (3.5-5.0); ANION GAP 12.1 (10.0-19.0); CALCIUM 9.2 mg/dL (8.5-10.5); CREATININE 3.3 mg/dL (0.6-1.3); PHOSPHORUS 2.2 mg/dL (2.5-4.9); POTASSIUM 4.1 mMol/L (3.7-5.1)
[2017-01-26 05:33] LABS: ABSOLUTE NEUTROPHIL CT (ANC) 8.4 K/uL (1.4-9.0); BANDED NEUTROPHIL # 0.5 K/uL (0.0-0.1); BANDED NEUTROPHILS % 5 %; LYMPHOCYTE # 1.7 K/uL (0.8-4.0); LYMPHOCYTE % 16 %; MONOCYTE # 0.5 K/uL (0.0-1.0); SEGMENTED NEUTROPHIL # 7.9 K/uL (1.4-9.0); SEGMENTED NEUTROPHIL % 72 %
[2017-01-27 05:41] LABS: HEMATOCRIT 40.8 % (37.0-53.0); HEMOGLOBIN 12.4 g/dL (11.0-16.0); MCH 30.5 pg (27.0-34.0); MCHC 30.4 gm/dL (32.0-36.5); MCV 100.2 fl (83.0-98.0); MPV 9.9 fl (9.4-12.4); PLATELET COUNT 304 K/uL (150-450); RBC 4.07 M/uL (3.50-5.50); RDW-CV 16.9 % (11.9-14.6); WBC 10.3 K/uL (4.0-11.0)
[2017-01-27 06:09] LABS: ALBUMIN 2.7 gm/dL (3.5-5.0); CALCIUM 9.4 mg/dL (8.5-10.5); PHOSPHORUS 3.6 mg/dL (2.5-4.9)
[2017-01-27 06:11] LABS: ANION GAP 17.4 (10.0-19.0); CREATININE 4.6 mg/dL (0.6-1.3); POTASSIUM 4.4 mMol/L (3.7-5.1)
[2017-01-27 06:48] LABS: LYMPHOCYTE # 2.1 K/uL (0.8-4.0); LYMPHOCYTE % 12 %; MONOCYTE # 0.6 K/uL (0.0-1.0); SEGMENTED NEUTROPHIL # 5.5 K/uL (1.4-9.0); SEGMENTED NEUTROPHIL % 53 %
[2017-01-27 06:49] LABS: BANDED NEUTROPHIL # 0.5 K/uL (0.0-0.1); BANDED NEUTROPHILS % 5 %
[2017-01-27] MEDS ORDERED: MIRALAX17 GM PO (16:26)
[2017-01-27] MEDS ORDERED: MILK OF MA400 MG/5 M PO (16:32)
[2017-01-27] MEDS ORDERED: LEVAQUIN 250 M250 MG PO (16:41)
== END 2017-01-27 17:00 | disposition home health service (06) | DRG 981 ==
LOC: GMED 12:19 → GPCU 15:25 → GICU 15:25 → GPCU 01-23 17:23
PROVIDERS: Emergency Medicine; Family Medicine; Internal Medicine; Nurse Practitioner; Thoracic Surgery (Cardiothoracic Vascular Surgery); ADMIT Internal Medicine
PROC: 5A1D60Z (ICD-10-PCS; principal; 2017-01-20)
PROC: 0B9N40Z Drainage of Right Pleura with Drainage Device, Percutaneous Endoscopic Approach (ICD-10-PCS; 2017-01-26)
DX: T82.838A Hemorrhage due to vascular prosthetic devices, implants and grafts, initial encounter (principal); R65.11 Systemic inflammatory response syndrome (SIRS) of non-infectious origin with acute organ dysfunction; J96.11 Chronic respiratory failure with hypoxia; J90 Pleural effusion, not elsewhere classified; E44.0 Moderate protein-calorie malnutrition; I95.9 Hypotension, unspecified; N18.6 End stage renal disease; I12.0 Hypertensive chronic kidney disease with stage 5 chronic kidney disease or end stage renal disease; D68.51 Activated protein C resistance; G47.33 Obstructive sleep apnea (adult) (pediatric); I48.0 Paroxysmal atrial fibrillation; Z79.01 Long term (current) use of anticoagulants; Z99.2 Dependence on renal dialysis; E66.01 Morbid (severe) obesity due to excess calories; Z68.37 Body mass index [BMI] 37.0-37.9, adult; I51.7 Cardiomegaly; E03.9 Hypothyroidism, unspecified; K21.9 Gastro-esophageal reflux disease without esophagitis; D63.8 Anemia in other chronic diseases classified elsewhere; E11.22 Type 2 diabetes mellitus with diabetic chronic kidney disease; D72.829 Elevated white blood cell count, unspecified
CPT/HCPCS: C1729; J0690; J0692; J1160; J1644; J2543; J2597; J3370; J7030; J7040; J7050; P9047; Q4081; Q9967

== ENCOUNTER → 2017-01-19 | Outpatient (CLI) | payer MEDICARE, OTHER | END | disposition disaster alternative care site (69) | LOC: GAMB 12:14 | DX: L76.22 Postprocedural hemorrhage of skin and subcutaneous tissue following other procedure (principal); I12.9 Hypertensive chronic kidney disease with stage 1 through stage 4 chronic kidney disease, or unspecified chronic kidney disease; E11.22 Type 2 diabetes mellitus with diabetic chronic kidney disease; N18.3 Chronic kidney disease, stage 3 (moderate); M10.9 Gout, unspecified; Z79.899 Other long term (current) drug therapy | CPT/HCPCS: A0422; A0425; A0429 ==